=== PATIENT | female | born 1960 | race Caucasian/White ===

== ENCOUNTER 2023-02-21 12:08 | Inpatient (IN) | payer MEDICARE, SELFPAY ==
[2023-02-21] VITALS (20 sets, daily range): BP systolic 117–221; BP diastolic 70–106; PULSE 64–84; RESP 16–18; TEMP 35.9–37; O2SAT 80–96; BMI 26.6
[2023-02-21 12:57] LABS: Add Manual Diff / Slide Review NO; Basophils Absolute Auto 100 /uL (0-100); Basophils Percent Auto 0.5 % (0-2); Eosinophils Absolute Auto 200 /uL (0-450); Eosinophils Percent Auto 1.5 % (2-4); Hematocrit 38.3 % (36-46); Hemoglobin 12.3 g/dL (12.0-16.0); Lymphocytes Absolute Auto 900 /uL (1100-4500); Lymphocytes Percent Auto 7.5 % (25-40); Mean Corpuscular Hemoglobin 26.1 PG (26-34); Mean Corpuscular Volume 81.3 fL (80-100); Monocytes Absolute Auto 1000 /uL (0-900); Monocytes Percent Auto 8.4 % (3-14); Neutrophils Absolute Auto 10200 /uL (1500-7000); Neutrophils Percent Auto 82.1 % (50-75); Platelet Count 303 X10^3/uL (150-400); Red Blood Cell Count 4.71 X10^6/uL (4.0-5.2); Red Cell Distribution Width 16.2 % (11.6-14.8); White Blood Cell Count 12.4 X10^3/uL (4.5-11.0)
--- NOTE | 2023-02-21 13:00 | ED.ABDPAIN ---
HPI - Abdominal Pain General Chief Complaint: Abdominal Pain Stated Complaint: abd pain/states bladder infection/back pain Time Seen by Provider: 02/21/23 12:50 Source: patient Mode of arrival: Ambulatory History of Present Illness HPI narrative: Patient here, brought by a friend for complains of nausea and right flank pain and hematuria. Patient seen by primary care last Monday for routine diabetes workup/checkup however the day before she had blood in her urine. She did get started on antibiotics this past weekend. She states that hematuria has resolved. However pain started on the right lower abdomen right flank area. Has had nausea. No sweating or fever. No worsening pain with movement or palpation. Has tried aspirin for discomfort without resolved. Informed her not to take aspirin for pain control. Related Data Home Medications Medication Instructions Recorded Confirmed apixaban 5 mg tablet (Eliquis) 5 mg PO BID blood clot 02/21/23 02/21/23 buspirone 7.5 mg tablet 7.5 mg PO BID 02/21/23 02/21/23 diltiazem HCl 30 mg tablet 30 mg PO BID 02/21/23 02/21/23 epinephrine 0.3 mg/0.3 mL 0.3 ml IM PRN PRN Allergic Reaction 02/21/23 02/21/23 injection, auto-injector insulin glargine 100 unit/mL (3 20 unit SUBCUT ONCE PM 02/21/23 02/21/23 mL) subcutaneous pen losartan 25 mg tablet 25 mg PO DAILY 02/21/23 02/21/23 metoprolol tartrate 100 mg tablet 100 mg PO DAILY 02/21/23 02/21/23 nitrofurantoin macrocrystal 100 mg 100 mg PO BID infectious disease 02/21/23 02/21/23 capsule omeprazole 20 mg capsule,delayed 20 mg PO QAM 02/21/23 02/21/23 release Allergies Allergy/AdvReac Type Severity Reaction Status Date / Time diphenhydramine Allergy Unknown Verified 02/21/23 12:28 [From TOMI] Review of Systems Review of Systems Narrative: GENERAL: negative chills, fatigue, malaise, fever, sweats. HEENT: negative sinus pain, ear pain, sore throat RESPIRATORY: negative dyspnea, cough CARDIOVASCULAR: negative chest pain, palpitations GASTROINTESTINAL: negative nausea, vomiting, positive flank and abdominal pain : negative dysuria, positive frequency, hematuria MUSCULOSKELETAL: negative muscle or bony pain SKIN: negative rash, skin lesions NEUROLOGIC: negative weakness, numbness ROS Unobtainable: All systems reviewed & are unremarkable except as noted in HPI and below Patient History Social History household members: friend(s) Smoking Status: Current every day smoker alcohol intake: never Smoking Status: Current every day smoker tobacco type: cigarettes Substance Use Type: marijuana Exam Narrative Exam Narrative: GENERAL: in no distress, not toxic not dyspneic HEAD: Normocephalic. EYES: Pupils equal round ENT: Mucous membranes moist. NECK: Trachea midline. CARDIOVASCULAR: Regular rate and rhythm RESPIRATORY: Clear to auscultation. Breath sounds equal bilaterally. No wheezes, rales, or rhonchi. GASTROINTESTINAL: Abdomen soft, mild right lower quadrant tenderness, no CVA tenderness. No pain out of portion of the exam. No peritoneal signs. Bowel sounds are present. EXTREMITIES: No gross deformities. BACK: No flank tenderness. NEURO: AOx4. SKIN: Warm and dry PSYCH: Not anxious, is cooperative Initial Vital Signs Initial Vital Signs: Vital Signs Temperature 98.6 F 02/21/23 12:28 Pulse Rate 76 02/21/23 12:28 Respiratory Rate 18 02/21/23 12:28 Blood Pressure 117/70 02/21/23 12:28 Pulse Oximetry 95 02/21/23 12:28 Oxygen Delivery Method Room Air 02/21/23 12:28 Course Orders Ordered: Acetaminophen (Acetaminophen 325 Mg Tablet) 650 mg PO Q6H PRN PRN Reason: Fever/Mild Pain (1-3) Last Admin: 02/21/23 21:12 Dose: 650 mg Documented By: AM Apixaban (Apixaban 5 Mg Tablet) 5 mg PO BID [facility] Last Admin: 02/21/23 21:12 Dose: 5 mg Documented By: AM Dextrose (D10w) 100 mls @ 1,200 mls/hr IV PRN PRN PRN Reason: Hypoglycemia Ceftriaxone Sodium 2,000 mg/ (Sodium Chloride) 100 mls @ 200 mls/hr IV Q24H [facility] Insulin Glargine (Insulin Glargine 100 Unit/Ml 3ml Pen) 20 unit SUBCUT 2100 [facility] Last Admin: 02/21/23 21:11 Dose: 20 unit Documented By: AM Co-signed By: JOAQUIM Insulin Human Lispro (Insulin Lispro 100 Unit/Ml 3ml Vial) 0 unit SUBCUT ACHS ELIF; Protocol Last Admin: 02/22/23 07:21 Dose: Not Given Documented By: Admin: 02/21/23 21:11 Dose: Not Given Documented By: AM Metoprolol Succinate (Metoprolol Er 50 Mg Tablet) 100 mg PO DAILY [facility] Naloxone HCl (Naloxone 0.4 Mg/Ml Vial) 0.2 mg IV Q2MIN PRN PRN Reason: Opiate Reversal Ondansetron HCl (Ondansetron 4 Mg/2 Ml Inj) 4 mg IV Q8HR PRN PRN Reason: Nausea And Vomiting Last Admin: 02/21/23 18:30 Dose: 4 mg Documented By: Discontinued Medications Sodium Chloride (Normal Saline 0.9%) 1,000 mls @ 1,000 mls/hr IV BOLUS ONE Stop: 02/21/23 13:58 Last Infusion: 02/21/23 15:22 Dose: Infused Documented By: Admin: 02/21/23 13:08 Dose: 1,000 mls/hr Documented By: VIKAS Ceftriaxone Sodium 2,000 mg/ (Sodium Chloride) 100 mls @ 200 mls/hr IV NOW ONE Stop: 02/21/23 16:10 Last Infusion: 02/21/23 18:01 Dose: Infused Documented By: Admin: 02/21/23 17:27 Dose: 200 mls/hr Documented By: MARLEN Sodium Chloride (Normal Saline 0.9%) 1,000 mls @ 1,000 mls/hr IV BOLUS ONE Stop: 02/21/23 17:14 Last Infusion: 02/21/23 17:40 Dose: Infused Documented By: Admin: 02/21/23 16:21 Dose: 1,000 mls/hr Documented By: MARLEN Morphine Sulfate (Morphine 4 Mg/Ml Inj) 4 mg IV NOW ONE Stop: 02/21/23 12:59 Last Admin: 02/21/23 13:08 Dose: 4 mg Documented By: VIKAS Ondansetron HCl (Ondansetron 4 Mg Odt) 4 mg PO NOW PRN PRN Reason: Nausea And Vomiting Ondansetron HCl (Ondansetron 4 Mg/2 Ml Inj) 4 mg IV NOW PRN PRN Reason: Nausea And Vomiting Vital Signs Vital signs: Vital Signs - 8 hr 02/21/23 12:28 02/21/23 13:07 02/21/23 13:08 Temperature 98.6 F Pulse Rate 76 Respiratory Rate 18 Blood Pressure 117/70 178/94 H Pulse Oximetry 95 95 Oxygen Delivery Method Room Air 02/21/23 13:08 02/21/23 13:34 02/21/23 13:35 Temperature Pulse Rate 73 77 Respiratory Rate Blood Pressure 176/87 H Pulse Oximetry 96 94 Oxygen Delivery Method 02/21/23 13:35 02/21/23 14:00 02/21/23 14:00 Temperature Pulse Rate 74 72 Respiratory Rate Blood Pressure 173/88 H Pulse Oximetry 93 Oxygen Delivery Method 02/21/23 14:30 02/21/23 14:30 02/21/23 14:47 Temperature Pulse Rate 76 Respiratory Rate Blood Pressure 183/96 H 194/92 H Pulse Oximetry 92 Oxygen Delivery Method MDM - Abdominal Pain Lab Data 02/22/23 06:10 02/22/23 06:10 Labs: Lab Results 02/21/23 02/21/23 02/21/23 Range/Units 12:48 14:47 17:18 WBC 12.4 H (4.5-11.0) X10^3/uL RBC 4.71 (4.0-5.2) X10^6/uL Hgb 12.3 (12.0-16.0) g/dL Hct 38.3 (36-46) % MCV 81.3 (80-100) fL MCH 26.1 (26-34) PG MCHC 32.0 (30-36) % RDW 16.2 H (11.6-14.8) % Plt Count 303 (150-400) X10^3/uL Neut % (Auto) 82.1 H (50-75) % Lymph % (Auto) 7.5 L (25-40) % [place] % (Auto) 8.4 (3-14) % Eos % (Auto) 1.5 L (2-4) % Baso % (Auto) 0.5 (0-2) % Neut # (Auto) 93326 H (0841-8370) /uL Lymph # (Auto) 900 L (7531-2350) /uL [place] # (Auto) 1000 H (0-900) /uL Eos # (Auto) 200 (0-450) /uL Baso # (Auto) 100 (0-100) /uL Sodium 136 L (137-145) mmol/L Potassium 3.8 (3.4-5.1) mmol/L Chloride 100 (98-107) mmol/L Carbon Dioxide 28 (22-32) mmol/L BUN 37 H (7-17) mg/dL Creatinine 1.34 H (0.52-1.04) mg/dL Estimated GFR 44 L (>60) mL/min BUN/Creatinine Ratio 27.6 H (6-22) Glucose 139 H (80-110) mg/dL Lactate 1.3 (0.7-2.1) mmol/L Calcium 9.0 (8.4-10.2) mg/dL Total Bilirubin 0.6 (0.2-1.3) mg/dL AST 26 (14-36) IU/L ALT 19 (<35) IU/L Alkaline Phosphatase 112 (38-126) U/L Total Protein 7.2 (6.3-8.2) g/dL Albumin 4.0 (3.5-5.0) g/dL Globulin 3.2 (1.7-4.1) g/dL Albumin/Globulin Ratio 1.3 (1.0-2.8) Lipase 79 (23-300) U/L Procalcitonin 0.10 (<0.5) ng/mL Urine Color Red Urine Appearance Cloudy Urine pH 6.5 (4.5-8.0) Ur Specific [place] 1.020 (1.000-1.035) Urine Protein 3+ H (Negative) Urine Glucose (UA) Negative (Negative) g/dL Urine Ketones Trace H (NEGATIVE) Urine Occult Blood 3+ H (Negative) Urine Nitrate Positive H (Negative) Urine Bilirubin 1+ H (NEGATIVE) Ur Bilirubin Confirm Negative (Negative) Urine Urobilinogen 4.0 H (0.2) E.U./dL Ur Leukocyte Esterase 2+ H (NEGATIVE) Urine RBC >100/hpf H (0-5/HPF) Urine WBC 5-10/hpf H (0-5/HPF) Ur Squamous Epith Cells 1-5 /hpf (0-5/HPF) Urine Bacteria Few (2-10) H (None) Ur Culture Indicated? Specimen cultured Imaging Data CT scan - abdomen/pelvis: Radiologist's Impression: [address] [address] [address] Scan Report Signed Patient: Giselle Whittaker MR#: [id number] : 1960 Acct:[id number] Age/Sex: 63 / F Date of Service: 02/21/23 Loc: ED Accession Number: [id number] Procedure: CT abdomen pelvis w con Ordering Provider: Sanchez Platt MD PROCEDURE: CT ABDOMEN PELVIS W CON INDICATIONS: IV contrast only/right side pain TECHNIQUE: After the administration of intravenous contrast, axial sections acquired from the lung bases to the pubic symphysis. Coronal and sagittal reformats were performed. For radiation dose reduction, the following was used: automated exposure control, adjustment of mA and/or kV according to patient size. COMPARISON: [facility], CT, CT ANGIO CHEST PE, 06/07/2015, 12:28. FINDINGS: Image quality: Excellent. Lung bases: Mild bibasilar atelectasis. Heart: Mild cardiomegaly. Small pericardial effusion. ABDOMEN: Liver: There is diffuse hypoattenuation of the liver parenchyma relative to the spleen compatible with hepatic steatosis. Gallbladder: Unremarkable Biliary ducts: Unremarkable. Pancreas: Unremarkable. Spleen: There is a 1.2 cm inferior splenic hypodensity not seen on comparison study. Suggestion of mild peripheral nodularity. Findings may represent a hemangioma. Adrenal Glands: Unremarkable. Kidneys and Ureters: There is mild right hydroureteronephrosis with moderate right perinephric and periureteral stranding. No evidence for obstructing stone or mass along the course of the right ureter. No urinary bladder stones seen. There is mild, greater than expected ureteral wall enhancement. Homogeneous enhancement of the right renal cortex. Left kidney is unremarkable in appearance. No hydronephrosis on the left. Stomach and Bowel: Stomach, small bowel loops, and colon are unremarkable. Colonic diverticulosis without acute diverticulitis. Scattered colonic fecal material. No evidence for bowel obstruction. Peritoneum: No free air. Scattered free fluid in the lower pelvis and right abdomen. This is likely reactive. Ventral Wall: No hernias. Abdominal Nodes: No retroperitoneal or mesenteric adenopathy by size criteria. Vessels: Aorta and inferior vena cava are normal in size. PELVIS: Pelvic Organs: Uterus is not definitively visualized and likely surgically absent. Recommend correlation with past surgical history. Bladder: Unremarkable. Pelvic Nodes: No enlarged lymph nodes. Miscellaneous: No hernias are seen. Bones: No acute vertebral body compression fractures. Multilevel spondylitic changes throughout the imaged spine. No suspicious osseous lesions. IMPRESSION: 1. Mild right hydroureteronephrosis without evidence for distal obstructing stone or mass. There is moderate associated right perinephric and periureteral stranding. Findings may represent sequela of recently passed stone. However, ascending urinary tract infection may have a similar appearance. No evidence for pyelonephritis or renal abscess. Recommend clinical and laboratory correlation. 2. Small amount of scattered right abdominal and pelvic free fluid likely reactive in etiology. 3. Mild colonic diverticulosis without acute diverticulitis. 4. New 1.2 cm inferior splenic hypodensity possibly representing a hemangioma. Recommend outpatient multi phase contrast enhanced CT or MRI for further characterization. 5. Hepatic steatosis. Other chronic findings as above. Dictated by: Jay Jonas M.D. on 02/21/2023 at 14:12 Approved by: Jay Jonas M.D. on 02/21/2023 at 14:39 [facility] Narrative Medical decision making narrative: Patient here, brought by a friend for complains of nausea and right flank pain and hematuria. Patient seen by primary care last Monday for routine diabetes workup/checkup however the day before she had blood in her urine. She did get started on antibiotics this past weekend. She states that hematuria has resolved. However pain started on the right lower abdomen right flank area. Has had nausea. No sweating or fever. No worsening pain with movement or palpation. Has tried aspirin for discomfort without resolved. Informed her not to take aspirin for pain control. After history and exam CBC CMP urinalysis CT abdomen pelvis morphine Zofran normal saline MDM CC: Right side abdominal pain Complicating co-morbidities: Recent treatment for UTI Data collected from: Patient Medical records reviewed: No recent visit for this complaint Differential considered: Includes but not limited to pyelonephritis cystitis appendicitis kidney stone Exam documented above, pertinent findings include: Mild right lower quadrant tenderness Lab Test results independently reviewed as above. Pertinent findings: WBC 12.4 sodium 136 BUN 37 creatinine 1.34 GFR 44 Urinalysis positive nitrate positive leuk esterase Imaging studies independently reviewed: CT abdomen pelvis mild right hydroureteronephrosis, no kidney stone. Consultations: 5:20 p.m. spoke with hospitalist, dr capone, will admit pt Treatments: Normal saline morphine Zofran Rocephin Re-evaluations: 4:00 p.m.. Reviewed results with patient. She says she does not feel very well. She would agree for admission. She is failed outpatient antibiotics. She is not sure which 1 she has been taking. Discussion: Appropriate for admission patient has failed outpatient antibiotics for the past week. Symptoms are getting worse. Reviewed laboratory studies and imaging, clinically likely pyelonephritis/cystitis Diagnosis: Pyelonephritis Discharge Plan Departure Patient Disposition: Admitted as Observation Clinical Impression: Acute pyelonephritis Admit Date/Time: 02/21/23 17:38 Admit Provider: Hair Caopne
[2023-02-21] MEDS: MORPHINE 4 MG/ML INJ IV (13:08)
[2023-02-21] MEDS: SODIUM CHLORIDE 0.9% 1,000 ML 1000 ML IV ×2 (13:08→16:21)
[2023-02-21 13:10] LABS: Alanine Aminotransferase 19 IU/L (<35); Albumin Globulin Ratio 1.3 (1.0-2.8); Alkaline Phosphatase 112 U/L (38-126); Aspartate Aminotransferase 26 IU/L (14-36); BUN Creatinine Ratio 27.6 (6-22); Bilirubin Total 0.6 mg/dL (0.2-1.3); Blood Urea Nitrogen 37 mg/dL (7-17); Carbon Dioxide 28 mmol/L (22-32); Chloride 100 mmol/L (98-107); Estimated Glomerular Filt Rate 44 mL/min (>60); Globulin 3.2 g/dL (1.7-4.1); Glucose 139 mg/dL (80-110); HEMOLYSIS < 15 (0-50); Lipase 79 U/L (23-300); Potassium 3.8 mmol/L (3.4-5.1); Sodium 136 mmol/L (137-145); Total Protein 7.2 g/dL (6.3-8.2)
--- NOTE | 2023-02-21 13:30 | DI.CT.S_ITS ---
PROCEDURE: CT ABDOMEN PELVIS W CON INDICATIONS: IV contrast only/right side pain TECHNIQUE: After the administration of intravenous contrast, axial sections acquired from the lung bases to the pubic symphysis. Coronal and sagittal reformats were performed. For radiation dose reduction, the following was used: automated exposure control, adjustment of mA and/or kV according to patient size. COMPARISON: [facility], CT, CT ANGIO CHEST PE, 06/07/2015, 12:28. FINDINGS: Image quality: Excellent. Lung bases: Mild bibasilar atelectasis. Heart: Mild cardiomegaly. Small pericardial effusion. ABDOMEN: Liver: There is diffuse hypoattenuation of the liver parenchyma relative to the spleen compatible with hepatic steatosis. Gallbladder: Unremarkable Biliary ducts: Unremarkable. Pancreas: Unremarkable. Spleen: There is a 1.2 cm inferior splenic hypodensity not seen on comparison study. Suggestion of mild peripheral nodularity. Findings may represent a hemangioma. Adrenal Glands: Unremarkable. Kidneys and Ureters: There is mild right hydroureteronephrosis with moderate right perinephric and periureteral stranding. No evidence for obstructing stone or mass along the course of the right ureter. No urinary bladder stones seen. There is mild, greater than expected ureteral wall enhancement. Homogeneous enhancement of the right renal cortex. Left kidney is unremarkable in appearance. No hydronephrosis on the left. Stomach and Bowel: Stomach, small bowel loops, and colon are unremarkable. Colonic diverticulosis without acute diverticulitis. Scattered colonic fecal material. No evidence for bowel obstruction. Peritoneum: No free air. Scattered free fluid in the lower pelvis and right abdomen. This is likely reactive. Ventral Wall: No hernias. Abdominal Nodes: No retroperitoneal or mesenteric adenopathy by size criteria. Vessels: Aorta and inferior vena cava are normal in size. PELVIS: Pelvic Organs: Uterus is not definitively visualized and likely surgically absent. Recommend correlation with past surgical history. Bladder: Unremarkable. Pelvic Nodes: No enlarged lymph nodes. Miscellaneous: No hernias are seen. Bones: No acute vertebral body compression fractures. Multilevel spondylitic changes throughout the imaged spine. No suspicious osseous lesions. IMPRESSION: 1. Mild right hydroureteronephrosis without evidence for distal obstructing stone or mass. There is moderate associated right perinephric and periureteral stranding. Findings may represent sequela of recently passed stone. However, ascending urinary tract infection may have a similar appearance. No evidence for pyelonephritis or renal abscess. Recommend clinical and laboratory correlation. 2. Small amount of scattered right abdominal and pelvic free fluid likely reactive in etiology. 3. Mild colonic diverticulosis without acute diverticulitis. 4. New 1.2 cm inferior splenic hypodensity possibly representing a hemangioma. Recommend outpatient multi phase contrast enhanced CT or MRI for further characterization. 5. Hepatic steatosis. Other chronic findings as above. Dictated by: Jay Jonas M.D. on 02/21/2023 at 14:12 Approved by: Jay Jonas M.D. on 02/21/2023 at 14:39
[2023-02-21 14:55] LABS: Appearance Urine UA CLOUDY; Bilirubin Urine UA 1+ (NEGATIVE); Color Urine UA RED; Glucose Urine UA NEGATIVE (Negative); Ketones Urine UA TRACE (NEGATIVE); Leukocyte Esterase Urine UA 2+ (NEGATIVE); Nitrite Urine UA POSITIVE (Negative); Occult Blood Urine UA 3+ (Negative); Protein Urine UA 3+ (Negative)
[2023-02-21 15:06] LABS: Bacteria Urine Few (2-10); RBC Urine >100/HPF (0-5/HPF); Squamous Epithelial Cell Urine 1-5 /HPF (0-5/HPF); WBC Urine 5-10/HPF (0-5/HPF); pH Urine UA 6.5 (4.5-8.0)
[2023-02-21 15:07] LABS: Culture Indicated Urine Specimen Cultured
[2023-02-21 15:09] LABS: Ictotest Urine Negative (Negative)
[2023-02-21] MEDS: cefTRIAXone 2,000 MG in SODIUM CHLORIDE 0.9% 100 ML 200 MG IV (17:27)
[2023-02-21 18:00] LABS: Lactate (Lactic Acid) 1.3 mmol/L (0.7-2.1)
--- NOTE | 2023-02-21 18:05 | PC.NURSE ---
This RN did first set of cultures with initial IV start and second set at second IV start and then hung antibiotics. At the time of this note, neither has been received but AC RN aware that both were done and should be pending.
[2023-02-21] MEDS: ONDANSETRON 4 MG/2 ML INJ IV (18:30)
--- NOTE | 2023-02-21 19:28 | PC.ADMIT ---
Admission Note: Patient to room 209 via stretcher at approx 1825, 1 person assist to bed. Oriented to room and to bed/tv/call light controls. Alert and oriented x3. Zofran administered for pt report of nausea per emar. Denies pain. Voided via BSC, urine pink and foul odored. RA, BP elevated 190s systolic but improved from ER. The patient,Giselle Whittaker,63 y/o, was given written information regarding hospital policies, unit procedures and contact persons. Patient's smoking status: Current every day smoker. Vital Signs - 8 hr 02/21/23 12:28 02/21/23 13:07 02/21/23 13:08 Temperature 98.6 F Pulse Rate 76 Respiratory Rate 18 Blood Pressure 117/70 178/94 H Pulse Oximetry 95 95 Oxygen Delivery Method Room Air Oxygen Flow Rate 02/21/23 13:08 02/21/23 13:34 02/21/23 13:35 Temperature Pulse Rate 73 77 Respiratory Rate Blood Pressure 176/87 H Pulse Oximetry 96 94 Oxygen Delivery Method Oxygen Flow Rate 02/21/23 13:35 02/21/23 14:00 02/21/23 14:00 Temperature Pulse Rate 74 72 Respiratory Rate Blood Pressure 173/88 H Pulse Oximetry 93 Oxygen Delivery Method Oxygen Flow Rate 02/21/23 14:30 02/21/23 14:30 02/21/23 14:47 Temperature Pulse Rate 76 Respiratory Rate Blood Pressure 183/96 H 194/92 H Pulse Oximetry 92 Oxygen Delivery Method Oxygen Flow Rate 02/21/23 15:00 02/21/23 15:00 02/21/23 15:30 Temperature Pulse Rate 73 Respiratory Rate Blood Pressure 185/103 H 200/101 H Pulse Oximetry 93 Oxygen Delivery Method Oxygen Flow Rate 02/21/23 15:30 02/21/23 16:00 02/21/23 16:00 Temperature Pulse Rate 75 79 Respiratory Rate Blood Pressure 189/93 H Pulse Oximetry 92 93 Oxygen Delivery Method Oxygen Flow Rate 02/21/23 16:30 02/21/23 16:30 02/21/23 16:40 Temperature Pulse Rate 75 73 Respiratory Rate Blood Pressure 201/95 H Pulse Oximetry 93 93 Oxygen Delivery Method Oxygen Flow Rate 02/21/23 17:00 02/21/23 17:24 02/21/23 17:30 Temperature Pulse Rate 77 84 Respiratory Rate Blood Pressure 221/101 H Pulse Oximetry 93 Oxygen Delivery Method Oxygen Flow Rate 02/21/23 17:35 02/21/23 17:35 02/21/23 18:25 Temperature 97.1 F L Pulse Rate 64 74 Respiratory Rate 16 Blood Pressure 206/106 H 194/102 H Pulse Oximetry 96 Oxygen Delivery Method Oxygen Flow Rate 0
--- NOTE | 2023-02-21 20:51 | P.HP_ITS ---
History of Present Illness History of Present Illness Date Patient Seen: 02/21/23 Time Patient Seen: 18:00 Chief complaint: abd pain/states bladder infection/back pain Narrative: Ms. Whittaker is a 63W with PMH DM, VTE, HTN who presents to the hospital with nausea, abdominal pain, and blood in the urine. She states she noted having blood in her urine last week. She was diagnosed with a UTI, and has been taking nitrofurantoin for three days. She has felt worse despite this with nausea, and lower abdominal pain and so presented to the ED. In the ED workup was done, vitals notable for afebrile, heart rate 70s, blood pressure 110s/70s, sats 95% room air. Labs reviewed and notable for WBC 12.4, hgb 12.3, plts 303. Na 136, creatinine 1.34. UA notable for blood, positive nitrates, 2+ leuk esterase, 5-10 WBCs, few bacteria. CT abdomen shows mild right hydroureteronephrosis with no evidence of stsone or mass. There is perinephric stranding and periureteral stranding. She was ordered for antibiotics and admitted for further treatment. [facility]LY [facility] Social History household members: friend(s) Smoking Status: Current every day smoker alcohol intake: never Meds Home Medications and Allergies Home Medications Medication Instructions Recorded Confirmed Type apixaban 5 mg tablet (Eliquis) 5 mg PO BID blood clot 02/21/23 02/21/23 History buspirone 7.5 mg tablet 7.5 mg PO BID 02/21/23 02/21/23 History diltiazem HCl 30 mg tablet 30 mg PO BID 02/21/23 02/21/23 History epinephrine 0.3 mg/0.3 mL 0.3 ml IM PRN PRN Allergic Reaction 02/21/23 02/21/23 History injection, auto-injector insulin glargine 100 unit/mL (3 20 unit SUBCUT ONCE PM 02/21/23 02/21/23 History mL) subcutaneous pen losartan 25 mg tablet 25 mg PO DAILY 02/21/23 02/21/23 History metoprolol tartrate 100 mg tablet 100 mg PO DAILY 02/21/23 02/21/23 History nitrofurantoin macrocrystal 100 mg 100 mg PO BID infectious disease 02/21/23 02/21/23 History capsule omeprazole 20 mg capsule,delayed 20 mg PO QAM 02/21/23 02/21/23 History release Allergies Allergy/AdvReac Type Severity Reaction Status Date / Time diphenhydramine Allergy Unknown Verified 02/21/23 12:28 [From BENADRYL] Review of Systems Review of Systems Narrative: 14 systems reviewed and negative aside from what is noted in HPI Exam Vital Signs (past 8 hours): - 02/21/23 13:07 02/21/23 13:08 02/21/23 13:08 Temperature Pulse Rate 73 Respiratory Rate Blood Pressure 178/94 H Pulse Oximetry 95 96 Oxygen Flow Rate 02/21/23 13:34 02/21/23 13:35 02/21/23 13:35 Temperature Pulse Rate 77 74 Respiratory Rate Blood Pressure 176/87 H Pulse Oximetry 94 93 Oxygen Flow Rate 02/21/23 14:00 02/21/23 14:00 02/21/23 14:30 Temperature Pulse Rate 72 Respiratory Rate Blood Pressure 173/88 H 183/96 H Pulse Oximetry Oxygen Flow Rate 02/21/23 14:30 02/21/23 14:47 02/21/23 15:00 Temperature Pulse Rate 76 Respiratory Rate Blood Pressure 194/92 H 185/103 H Pulse Oximetry 92 Oxygen Flow Rate 02/21/23 15:00 02/21/23 15:30 02/21/23 15:30 Temperature Pulse Rate 73 75 Respiratory Rate Blood Pressure 200/101 H Pulse Oximetry 93 92 Oxygen Flow Rate 02/21/23 16:00 02/21/23 16:00 02/21/23 16:30 Temperature Pulse Rate 79 75 Respiratory Rate Blood Pressure 189/93 H Pulse Oximetry 93 93 Oxygen Flow Rate 02/21/23 16:30 02/21/23 16:40 02/21/23 17:00 Temperature Pulse Rate 73 Respiratory Rate Blood Pressure 201/95 H 221/101 H Pulse Oximetry 93 Oxygen Flow Rate 02/21/23 17:24 02/21/23 17:30 02/21/23 17:35 Temperature Pulse Rate 77 84 64 Respiratory Rate Blood Pressure Pulse Oximetry 93 Oxygen Flow Rate 02/21/23 17:35 02/21/23 18:25 02/21/23 20:50 Temperature 97.1 F L Pulse Rate 74 Respiratory Rate 16 Blood Pressure 206/106 H 194/102 H Pulse Oximetry 96 80 L Oxygen Flow Rate 0 0 02/21/23 20:50 Temperature Pulse Rate Respiratory Rate Blood Pressure Pulse Oximetry 93 Oxygen Flow Rate 1.5 Oxygen Delivery Method Room Air Oxygen Flow Rate 1.5 Narrative Exam Narrative: GEN: no acute distress CV: regular rate and rhythm, no murmurs PULM: clear bilaterally, no wheezes, rhonchi, rales ABD: soft, mild tenderness, no rebound/guarding NEURO: no focal deficits noted Objective Labs 02/21/23 12:48 02/21/23 12:48 Labs: Laboratory Results - last 24 hr 02/21/23 02/21/23 02/21/23 12:48 14:47 17:18 WBC 12.4 H RBC 4.71 Hgb 12.3 Hct 38.3 MCV 81.3 MCH 26.1 MCHC 32.0 RDW 16.2 H Plt Count 303 Neut % (Auto) 82.1 H Lymph % (Auto) 7.5 L [place] % (Auto) 8.4 Eos % (Auto) 1.5 L Baso % (Auto) 0.5 Neut # (Auto) 66800 H Lymph # (Auto) 900 L [place] # (Auto) 1000 H Eos # (Auto) 200 Baso # (Auto) 100 Sodium 136 L Potassium 3.8 Chloride 100 Carbon Dioxide 28 BUN 37 H Creatinine 1.34 H Estimated GFR 44 L BUN/Creatinine Ratio 27.6 H Glucose 139 H Lactate 1.3 Calcium 9.0 Total Bilirubin 0.6 AST 26 ALT 19 Alkaline Phosphatase 112 Total Protein 7.2 Albumin 4.0 Globulin 3.2 Albumin/Globulin Ratio 1.3 Lipase 79 Procalcitonin 0.10 Urine Color Red Urine Appearance Cloudy Urine pH 6.5 Ur Specific [place] 1.020 Urine Protein 3+ H Urine Glucose (UA) Negative Urine Ketones Trace H Urine Occult Blood 3+ H Urine Nitrate Positive H Urine Bilirubin 1+ H Ur Bilirubin Confirm Negative Urine Urobilinogen 4.0 H Ur Leukocyte Esterase 2+ H Urine RBC >100/hpf H Urine WBC 5-10/hpf H Ur Squamous Epith Cells 1-5 /hpf Urine Bacteria Few (2-10) H Ur Culture Indicated? Specimen cultured Assessment & Plan Assessment & Plan narrative: 1. Acute pyelonephritis -has been on antibiotics for three days, now admitted for worsening -will need IV antibiotics -UA positive for infection and notable for blood -cultures pending -CT showed right hydronephrosis with no evidence of stone or mass, possibly secondary to infection 2. JOHN -suspect secondary to infection -continue to monitor closely -if not improving may need repeat CT scan or urology consult 3. VTE -continue apixaban I have discussed plan and obtained history from patient. I have discussed plan of care with ED physician and bedside nurse. I have reviewed labs, imaging. CODE: Full Proxy: rosalia Iqbal Quality [facility] - Meds 'Current medications' to include all prescriptions, [id number] products, herbals, cannabis/cannabidiol products, and vitamin/mineral/dietary (nutritional) supplements. I have utilized all available resources to obtain, update, or review the patient?s current medications. [If Yes, STOP here]: Yes
[2023-02-21] MEDS: INSULIN GLARGINE 100 UNIT/ML 3ML PEN 20 UNIT SUBCUT (21:11)
[2023-02-21] MEDS: APIXABAN 5 MG TABLET PO (21:12)
[2023-02-21] MEDS: ACETAMINOPHEN 325 MG TABLET 650 MG PO (21:12)
[2023-02-22] VITALS (7 sets, daily range): BP systolic 150–190; BP diastolic 67–105; PULSE 78–97; RESP 18–20; TEMP 36.1–36.9; O2SAT 91–98
[2023-02-22 06:58] LABS: Add Manual Diff / Slide Review NO; Basophils Absolute Auto 100 /uL (0-100); Eosinophils Absolute Auto 400 /uL (0-450); Eosinophils Percent Auto 6.8 % (2-4); Hematocrit 33.2 % (36-46); Hemoglobin 10.8 g/dL (12.0-16.0); Lymphocytes Absolute Auto 900 /uL (1100-4500); Lymphocytes Percent Auto 13.8 % (25-40); Mean Corpuscular HGB Conc 32.6 % (30-36); Mean Corpuscular Hemoglobin 26.5 PG (26-34); Mean Corpuscular Volume 81.4 fL (80-100); Monocytes Absolute Auto 700 /uL (0-900); Monocytes Percent Auto 10.7 % (3-14); Neutrophils Absolute Auto 4200 /uL (1500-7000); Neutrophils Percent Auto 67.7 % (50-75); Platelet Count 225 X10^3/uL (150-400); Red Blood Cell Count 4.08 X10^6/uL (4.0-5.2); Red Cell Distribution Width 15.8 % (11.6-14.8); White Blood Cell Count 6.3 X10^3/uL (4.5-11.0)
[2023-02-22 07:14] LABS: BUN Creatinine Ratio 28.6 (6-22); Blood Urea Nitrogen 28 mg/dL (7-17); Calcium 8.2 mg/dL (8.4-10.2); Carbon Dioxide 27 mmol/L (22-32); Chloride 102 mmol/L (98-107); Estimated Glomerular Filt Rate > 60 mL/min (>60); Glucose 89 mg/dL (80-110); HEMOLYSIS < 15 (0-50); Potassium 3.7 mmol/L (3.4-5.1); Sodium 135 mmol/L (137-145)
[2023-02-22] MEDS: APIXABAN 5 MG TABLET PO (08:22)
[2023-02-22] MEDS: METOPROLOL ER 50 MG TABLET 100 MG PO (08:22)
[2023-02-22] MEDS: ACETAMINOPHEN 325 MG TABLET 650 MG PO ×2 (08:22→21:04)
--- NOTE | 2023-02-22 11:47 | CM.DANOTE ---
DCP Assessment Note: Patient is a 63yo F here for acute pyelonephritis. PCP Shara Asencio in [place] Payer Medicare and self pay [employer]CH[employer] reviewed EMR. Per provider, likely here for a few days with IV antibiotics and then home. Blood cultures pending for potential iv antibiotic d/c needs. Per RN, patient is weak but getting up to use bedside commode independently. 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 Patient resting in bed. Patient reports living at home with two friends Anastasia and Ines. Patient reports she is active and independent/drives at baseline. Patient uses no DME. Patient reports feeling weak but better. Patient denies need for resources at this time. Plan: likely home with friends when medically stable, transport with friends in POV. CM team will continue to monitor need for potential home IV antibiotic needs. No additional needs identified at this time. CM team will continue to follow closely. JUAN Alcaraz Discharge Planning/Care Management CM Discharge Assessment Start: 02/22/23 11:46 Freq: Status: Active Protocol: Document 02/22/23 11:46 (Rec: 02/22/23 11:47 [id number]) Discharge Planning Assessment Assigned Tire Repairer JUAN Yepez DPOA/Assigned Designee Name Lakhwinder (son) Contact Information [phone] Advance Directives? No History Provided By Patient,Medical Record Prior Living Arrangements House Household Members friend(s) Type of transporation used prior to Drives own vehicle admit Independent with ADL's Yes Is patient alert and oriented? Yes Comment patient will be here a few days for his IV antibiotics. Discharge Plan Home Transportation Arrangement transport with friends in POV Whiteboard Updated in Patient Room with Yes name and ext. # of Tire Repairer Review Status In Process Next Review Type Continued Stay Review
[2023-02-22] MEDS: LOSARTAN 25 MG TABLET PO (15:35)
[2023-02-22] MEDS: NICOTINE 7 MG PATCH TOP (15:35)
--- NOTE | 2023-02-22 17:08 | PM.PN.1 ---
Subjective Subjective Date Patient Seen: 02/22/23 Time Patient Seen: 08:00 Interval history: She says her abdominal pain and nausea feel a little improved. She really looks quite weak and uncomfortable. Exam Vital Signs (past 8 hours): - 02/22/23 12:43 Temperature 98.5 F Pulse Rate 97 H Respiratory Rate 18 Blood Pressure 170/88 H Pulse Oximetry 95 Oxygen Flow Rate 0 Oxygen Delivery Method Room Air Oxygen Flow Rate 0 Narrative Exam Narrative: GEN: no acute distress CV: regular rate and rhythm, no murmurs PULM: clear bilaterally, no wheezes, rhonchi, rales ABD: soft, mild tenderness, no rebound/guarding NEURO: no focal deficits noted Objective Labs 02/22/23 06:10 02/22/23 06:10 Labs: Laboratory Results - last 24 hr 02/21/23 02/21/23 02/22/23 12:48 17:18 06:10 WBC 6.3 RBC 4.08 Hgb 10.8 L Hct 33.2 L MCV 81.4 MCH 26.5 MCHC 32.6 RDW 15.8 H Plt Count 225 Neut % (Auto) 67.7 Lymph % (Auto) 13.8 L [place] % (Auto) 10.7 Eos % (Auto) 6.8 H Baso % (Auto) 1.0 Neut # (Auto) 4200 Lymph # (Auto) 900 L [place] # (Auto) 700 Eos # (Auto) 400 Baso # (Auto) 100 Sodium 135 L Potassium 3.7 Chloride 102 Carbon Dioxide 27 BUN 28 H Creatinine 0.98 Estimated GFR > 60 BUN/Creatinine Ratio 28.6 H Glucose 89 Lactate 1.3 Calcium 8.2 L Procalcitonin 0.10 PFSH Social History household members: friend(s) Smoking Status: Current every day smoker alcohol intake: never Assessment & Plan Assessment & Plan narrative: 1. Acute pyelonephritis -has been on antibiotics for three days as outpatient, now admitted for worsening symptoms -will need IV antibiotics, for now with ceftriaxone -UA positive for infection and notable for blood -cultures pending -CT showed right hydronephrosis with no evidence of stone or mass, possibly secondary to infection, as JOHN improved for now I do not think she need urology consult 2. JOHN -suspect secondary to infection -continue to monitor closely -JOHN improved with fluids -if not improving may need repeat CT scan or urology consult 3. Hematuria -suspect secondary to infection -not improved with antibiotics -stopped apixaban on 02/22 to see if that resolves hematuria -if not may need cbi or urology consult 3. Atrial fibrillation -continue dilt, metoprolol -hold apixaban 4. Type 2 Diabetes -continue insulin -ordered sliding scale 5. Hypertension -hold losartain due to john I have discussed plan and obtained history from patient. I have discussed plan of care with ED physician and bedside nurse. I have reviewed labs, imaging. CODE: Full Proxy: Lakhwinder Cantunesha, son
[2023-02-22] MEDS: cefTRIAXone 2,000 MG in SODIUM CHLORIDE 0.9% 100 ML 200 MG IV (18:07)
[2023-02-22] MEDS: INSULIN GLARGINE 100 UNIT/ML 3ML PEN 20 UNIT SUBCUT (20:58)
[2023-02-22] MEDS: dilTIAZem 30 MG TABLET PO (21:00)
[2023-02-22] MEDS: BUSPIRONE 5 MG TABLET 7.5 MG PO (21:00)
[2023-02-22] MEDS: SODIUM CHLORIDE 0.9% FLUSH 10 ML IV (21:09)
[2023-02-23] VITALS (9 sets, daily range): BP systolic 144–171; BP diastolic 78–93; PULSE 65–90; RESP 16–19; TEMP 35.9–36.6; O2SAT 93–95
[2023-02-23] MEDS: PANTOPRAZOLE DR 20 MG TABLET PO (06:23)
[2023-02-23] MEDS: BUSPIRONE 5 MG TABLET 7.5 MG PO ×2 (08:19→20:09)
[2023-02-23] MEDS: dilTIAZem 30 MG TABLET PO ×2 (08:19→20:08)
[2023-02-23] MEDS: LOSARTAN 25 MG TABLET PO (08:20)
[2023-02-23] MEDS: NICOTINE 7 MG PATCH TOP (08:21)
[2023-02-23] MEDS: ACETAMINOPHEN 325 MG TABLET 650 MG PO (08:21)
[2023-02-23] MEDS: METOPROLOL ER 50 MG TABLET 100 MG PO (08:21)
[2023-02-23] MEDS: ONDANSETRON 4 MG/2 ML INJ IV ×2 (11:26→16:57)
[2023-02-23] MEDS: OXYCODONE/ACETAMINOPHEN 5/325 TABLET 2 TAB PO ×2 (11:52→17:25)
[2023-02-23] MEDS: INSULIN LISPRO 100 UNIT/ML 3ML VIAL SUBCUT ×2 (11:58→20:13)
[2023-02-23] MEDS: cefTRIAXone 2,000 MG in SODIUM CHLORIDE 0.9% 100 ML 200 MG IV (16:26)
--- NOTE | 2023-02-23 18:21 | PM.PN.1 ---
Subjective Subjective Interval history: A lot of right sided flank pain and nausea. Some fevers. No diarrhea or dyspnea. Exam Vital Signs (past 8 hours): - 02/23/23 14:34 Temperature 97.8 F Pulse Rate 65 Respiratory Rate 17 Blood Pressure 144/78 H Pulse Oximetry 95 Oxygen Flow Rate 2 Oxygen Delivery Method Nasal Cannula Oxygen Flow Rate 2 Narrative Exam Narrative: NAD, uncomfortable. Lungs clear with normal effort CV RRR without M/G/R Abdomen Soft, NT/ND No rash No leg edema Objective Imaging CT scan - abdomen: Radiologist's impression: 1. Mild right hydroureteronephrosis without evidence for distal obstructing stone or mass. There is moderate associated right perinephric and periureteral stranding. Findings may represent sequela of recently passed stone. However, ascending urinary tract infection may have a similar appearance. No evidence for pyelonephritis or renal abscess. Recommend clinical and laboratory correlation. 2. Small amount of scattered right abdominal and pelvic free fluid likely reactive in etiology. 3. Mild colonic diverticulosis without acute diverticulitis. 4. New 1.2 cm inferior splenic hypodensity possibly representing a hemangioma. Recommend outpatient multi phase contrast enhanced CT or MRI for further characterization. 5. Hepatic steatosis. Labs 02/22/23 06:10 02/22/23 06:10 [facility] Social History household members: friend(s) Smoking Status: Current every day smoker alcohol intake: never Assessment & Plan Assessment & Plan narrative: [address] [address] Progress Note Patient: Giselle Whittaker MR#: [id number] : 1960 Acct:[id number] Age/Sex: 63 / F Date of Service: 02/21/23 Provider: Hair Donnelly MD Subjective Subjective Date Patient Seen: 02/22/23 Time Patient Seen: 08:00 Interval history: She says her abdominal pain and nausea feel a little improved. She really looks quite weak and uncomfortable. Exam Vital Signs (past 8 hours): - 02/23/2312:43 Temperature 98.5 F Pulse Rate 97 H Respiratory Rate 18 Blood Pressure 170/88 H Pulse Oximetry 95 Oxygen Flow Rate 0 Oxygen Delivery Method Room Air Oxygen Flow Rate 0 Narrative Exam Narrative: GEN: no acute distress CV: regular rate and rhythm, no murmurs PULM: clear bilaterally, no wheezes, rhonchi, rales ABD: soft, mild tenderness, no rebound/guarding NEURO: no focal deficits noted Objective Labs 02/22/23 06:10 02/22/23 06:10 Labs: Laboratory Results - last 24 hr 02/21/23 02/21/23 02/22/23 12:48 17:18 06:10 WBC 6.3 RBC 4.08 Hgb 10.8 L Hct 33.2 L MCV 81.4 MCH 26.5 MCHC 32.6 RDW 15.8 H Plt Count 225 Neut % (Auto) 67.7 Lymph % (Auto) 13.8 L [place] % (Auto) 10.7 Eos % (Auto) 6.8 H Baso % (Auto) 1.0 Neut # (Auto) 4200 Lymph # (Auto) 900 L [place] # (Auto) 700 Eos # (Auto) 400 Baso # (Auto) 100 Sodium 135 L Potassium 3.7 Chloride 102 Carbon Dioxide 27 BUN 28 H Creatinine 0.98 Estimated GFR > 60 BUN/Creatinine Ratio 28.6 H Glucose 89 Lactate 1.3 Calcium 8.2 L Procalcitonin 0.10 PFSH Social History household members: friend(s) Smoking Status: Current every day smoker alcohol intake: never Assessment & Plan Assessment & Plan narrative: 1. Acute pyelonephritis, POA and active. -has been on antibiotics for three days as outpatient, now admitted for worsening symptoms -Continue ceftriaxone -UA positive for infection and notable for blood -cultures pending, remain negative -CT showed right hydronephrosis with no evidence of stone or mass, possibly secondary to infection, as JOHN improved for now I do not think she need urology consult 2. JOHN, POA -suspect secondary to infection -continue to monitor closely -JOHN improved with fluids -if not improving may need repeat CT scan or urology consult 3. Hematuria, POA and improving. -secondary to infection -not improved with antibiotics -stopped apixaban on 02/22 to see if that resolves hematuria -if not may need cbi or urology consult 3. Atrial fibrillation, POA and stable -continue dilt, metoprolol -hold apixaban due to hematuria 4. Type 2 Diabetes, POA and stable. -continue insulin -ordered sliding scale 5. Hypertension, POA and stable.. -hold losartain due to john Time Spent With Patient Time with patient: 30 to 49 minutes with 50% spent counseling/coordinating care
[2023-02-23] MEDS: METOCLOPRAMIDE 10 MG/2 ML INJ 5 MG IV (18:27)
[2023-02-23] MEDS: INSULIN GLARGINE 100 UNIT/ML 3ML PEN 20 UNIT SUBCUT (21:03)
[2023-02-23 22:32] LABS: BUN Creatinine Ratio 23.6 (6-22); Blood Urea Nitrogen 30 mg/dL (7-17); Calcium 8.3 mg/dL (8.4-10.2); Carbon Dioxide 30 mmol/L (22-32); Chloride 99 mmol/L (98-107); Estimated Glomerular Filt Rate 47 mL/min (>60); Glucose 166 mg/dL (80-110); HEMOLYSIS 16 (0-50); Potassium 4.3 mmol/L (3.4-5.1); Sodium 136 mmol/L (137-145)
[2023-02-24] VITALS (8 sets, daily range): BP systolic 147–180; BP diastolic 69–96; PULSE 68–90; RESP 16–18; TEMP 36–36.4; O2SAT 91–99
[2023-02-24] MEDS: ONDANSETRON 4 MG/2 ML INJ IV ×4 (00:53→18:12)
[2023-02-24 05:44] LABS: Add Manual Diff / Slide Review NO; Basophils Absolute Auto 100 /uL (0-100); Eosinophils Absolute Auto 400 /uL (0-450); Eosinophils Percent Auto 5.2 % (2-4); Hematocrit 34.1 % (36-46); Hemoglobin 11.1 g/dL (12.0-16.0); Lymphocytes Absolute Auto 1100 /uL (1100-4500); Lymphocytes Percent Auto 14.6 % (25-40); Mean Corpuscular HGB Conc 32.5 % (30-36); Mean Corpuscular Hemoglobin 26.5 PG (26-34); Mean Corpuscular Volume 81.6 fL (80-100); Monocytes Absolute Auto 600 /uL (0-900); Monocytes Percent Auto 8.7 % (3-14); Neutrophils Absolute Auto 5200 /uL (1500-7000); Neutrophils Percent Auto 70.5 % (50-75); Platelet Count 246 X10^3/uL (150-400); Red Blood Cell Count 4.18 X10^6/uL (4.0-5.2); Red Cell Distribution Width 15.7 % (11.6-14.8); White Blood Cell Count 7.4 X10^3/uL (4.5-11.0)
[2023-02-24] MEDS: PANTOPRAZOLE DR 20 MG TABLET PO (06:20)
[2023-02-24] MEDS: INSULIN LISPRO 100 UNIT/ML 3ML VIAL SUBCUT ×2 (08:15→11:49)
[2023-02-24] MEDS: NICOTINE 7 MG PATCH TOP (08:36)
[2023-02-24] MEDS: BUSPIRONE 5 MG TABLET 7.5 MG PO ×2 (08:36→20:38)
[2023-02-24] MEDS: METOPROLOL ER 50 MG TABLET 100 MG PO (08:36)
[2023-02-24] MEDS: dilTIAZem 30 MG TABLET PO ×2 (08:38→20:38)
[2023-02-24] MEDS: SODIUM CHLORIDE 0.9% 500 ML 1000 ML IV (08:39)
[2023-02-24] MEDS: LOSARTAN 25 MG TABLET PO (08:39)
--- NOTE | 2023-02-24 10:30 | CM.DPC ---
DCP Cont. Reviewed EMR and team rounds. Per Hospitalist, no need for home IV ABO's, d/c tomorrow 02/25. Plan: Home w/friends transporting. No further needs indicated at this time for CM.
--- NOTE | 2023-02-24 12:42 | PM.PN.1 ---
Subjective Subjective Interval history: She would a difficult day yesterday with weakness, nausea and flank pain. Today she feels much better but is still weak and having some nausea. She was able to eat about 25% of her breakfast. She ate about 50% of her lunch. She denies abdominal pain. Exam Vital Signs (past 8 hours): - 02/24/23 07:46 02/24/23 07:54 02/24/23 08:36 Temperature 97.5 F L Pulse Rate 68 68 Respiratory Rate 16 Blood Pressure 155/75 H 155/75 H Pulse Oximetry 94 Oxygen Delivery Method Nasal Cannula Oxygen Flow Rate 2 02/24/23 08:38 02/24/23 08:39 02/24/23 12:00 Temperature 97.0 F L Pulse Rate 68 68 72 Respiratory Rate 16 Blood Pressure 155/75 H 155/75 H 180/87 H Pulse Oximetry 99 Oxygen Delivery Method Oxygen Flow Rate 2 Oxygen Delivery Method Nasal Cannula Oxygen Flow Rate 2 Narrative Exam Narrative: NAD, somewhat lethargic. No distress. Lungs clear, normal effort. Heart irregular, no murmur. Abdomen soft, nontender. Extremities are free of edema. Objective Labs 02/24/23 05:08 02/23/23 22:12 Labs: Laboratory Results - last 24 hr 02/23/23 02/24/23 22:12 05:08 WBC 7.4 RBC 4.18 Hgb 11.1 L Hct 34.1 L MCV 81.6 MCH 26.5 MCHC 32.5 RDW 15.7 H Plt Count 246 Neut % (Auto) 70.5 Lymph % (Auto) 14.6 L [place] % (Auto) 8.7 Eos % (Auto) 5.2 H Baso % (Auto) 1.0 Neut # (Auto) 5200 Lymph # (Auto) 1100 [place] # (Auto) 600 Eos # (Auto) 400 Baso # (Auto) 100 Sodium 136 L Potassium 4.3 Chloride 99 Carbon Dioxide 30 BUN 30 H Creatinine 1.27 H Estimated GFR 47 L BUN/Creatinine Ratio 23.6 H Glucose 166 H Calcium 8.3 L PFSH Social History household members: friend(s) Smoking Status: Current every day smoker alcohol intake: never Assessment & Plan Assessment & Plan narrative: 1. Acute pyelonephritis, POA and improving. -has been on antibiotics for three days as outpatient, now admitted for worsening symptoms -Continue ceftriaxone until she is clinically improved to the point of taking antibiotics orally, likely on February 25. -UA positive for infection and notable for blood. Final is 3 Gram-positive marilin. -blood cultures are negative -CT showed right hydronephrosis with no evidence of stone or mass, possibly secondary to infection, as JOHN improved for now I do not think she need urology consult 2. JOHN, POA -suspect secondary to infection -continue to monitor closely -JOHN improved with fluids -today's chemistries are pending. 3. Hematuria, POA and resolved. -secondary to infection -stopped apixaban on 02/22 to see if that resolves hematuria 3. Atrial fibrillation, POA and stable -continue dilt, metoprolol -hold apixaban due to hematuria, we will restart apixaban today and monitor. 4. Type 2 Diabetes, POA and stable. -continue insulin -ordered sliding scale -continue current regimen. 5. Hypertension, POA and stable.. -hold losartain due to john Anticipate possible discharge to home on February 25. Time Spent With Patient Time with patient: 30 to 49 minutes with 50% spent counseling/coordinating care
[2023-02-24] MEDS: SODIUM CHLORIDE 0.9% 1,000 ML 100 ML IV (13:13)
[2023-02-24 15:24] LABS: Blood Urea Nitrogen 27 mg/dL (7-17); Calcium 8.3 mg/dL (8.4-10.2); Carbon Dioxide 29 mmol/L (22-32); Chloride 100 mmol/L (98-107); Estimated Glomerular Filt Rate > 60 mL/min (>60); Glucose 153 mg/dL (80-110); HEMOLYSIS 32 (0-50); Potassium 4.3 mmol/L (3.4-5.1); Sodium 133 mmol/L (137-145)
[2023-02-24] MEDS: cefTRIAXone 2,000 MG in SODIUM CHLORIDE 0.9% 100 ML 200 MG IV (18:11)
[2023-02-24] MEDS: APIXABAN 5 MG TABLET PO (20:38)
[2023-02-24] MEDS: INSULIN GLARGINE 100 UNIT/ML 3ML PEN 20 UNIT SUBCUT (20:39)
[2023-02-25] VITALS (14 sets, daily range): BP systolic 129–191; BP diastolic 60–94; PULSE 73–93; RESP 16–25; TEMP 35.7–37; O2SAT 90–98
--- NOTE | 2023-02-25 00:13 | PC.NURSE ---
Pt o2 dropped to 83% when up to bedside commode. Recovered back to 91% on 4L NC. Expiratory wheezing to R side, Pt feels congested coughing up yellow thick sputum. Notified doctor and ordered breathing treatments as needed. Will continue to monitor.
[2023-02-25] MEDS: ALBUTEROL 2.5 MG/3 ML NEB (ADULT) INH (00:15)
[2023-02-25] MEDS: PANTOPRAZOLE DR 20 MG TABLET PO (06:32)
[2023-02-25] MEDS: HYDRALAZINE 20 MG/ML VIAL IV (06:32)
--- NOTE | 2023-02-25 07:57 | PM.DS.1 ---
History of Present Illness History of Present Illness Chief complaint: abd pain/states bladder infection/back pain Discharge Providers Provider Date of admission: 02/21/23 17:38 Discharge provider: Ofe Madera MD Exam Vital Signs (past 8 hours): - 02/25/23 00:08 02/25/23 00:21 02/25/23 05:15 Temperature 98.6 F 98.3 F Pulse Rate 73 77 89 Respiratory Rate 20 18 16 Blood Pressure 168/90 H 191/92 H Pulse Oximetry 90 L 93 94 Oxygen Delivery Method Nasal Cannula Oxygen Flow Rate 4 4 4 02/25/23 06:40 02/25/23 06:57 Temperature 96.2 F L Pulse Rate 84 Respiratory Rate 20 Blood Pressure 178/89 H 134/60 Pulse Oximetry 94 Oxygen Delivery Method Oxygen Flow Rate 4 Oxygen Delivery Method Nasal Cannula Oxygen Flow Rate 4 Objective Labs 02/24/23 05:08 02/24/23 14:25 Labs: Laboratory Results - last 24 hr 02/24/23 14:25 Sodium 133 L Potassium 4.3 Chloride 100 Carbon Dioxide 29 BUN 27 H Creatinine 0.87 Estimated GFR > 60 BUN/Creatinine Ratio 31.0 H Glucose 153 H Calcium 8.3 L PFSH Social History household members: friend(s) Smoking Status: Current every day smoker alcohol intake: never Discharge Plan Discharge orders & Medications Prescriptions: No Action metoprolol tartrate 100 mg tablet 100 mg PO DAILY nitrofurantoin macrocrystal 100 mg capsule 100 mg PO BID losartan 25 mg tablet 25 mg PO DAILY buspirone 7.5 mg tablet 7.5 mg PO BID omeprazole 20 mg capsule,delayed release(DR/EC) 20 mg PO QAM epinephrine 0.3 mg/0.3 mL auto-injector 0.3 ml IM PRN PRN (Reason: Allergic Reaction) diltiazem HCl 30 mg tablet 30 mg PO BID insulin glargine 100 unit/mL (3 mL) insulin pen 20 unit SUBCUT ONCE PM Eliquis 5 mg tablet 5 mg PO BID
[2023-02-25] MEDS: APIXABAN 5 MG TABLET PO ×2 (08:54→20:18)
[2023-02-25] MEDS: METOPROLOL ER 50 MG TABLET 100 MG PO (08:54)
[2023-02-25] MEDS: LOSARTAN 25 MG TABLET PO (08:55)
[2023-02-25] MEDS: BUSPIRONE 5 MG TABLET 7.5 MG PO ×2 (08:55→20:18)
[2023-02-25] MEDS: dilTIAZem 30 MG TABLET PO ×2 (08:55→20:24)
--- NOTE | 2023-02-25 10:31 | CM.DPC ---
DCP Cont. Reviewed EMR and team rounds for status updates. Met with pt at bedside, explained that she is not medically stable for d/c yet, and the Hospitalist anticipates about 2-more days of ABO's. Pt presents as very weak, tearful, expressing wanting to go home. Offered emotional support, reassured her that we will keep monitoring for any needs she will have as we approach d/c home. Her friends will transport when ready.
[2023-02-25] MEDS: ONDANSETRON 4 MG/2 ML INJ IV (11:42)
[2023-02-25] MEDS: INSULIN LISPRO 100 UNIT/ML 3ML VIAL SUBCUT ×2 (11:59→20:21)
--- NOTE | 2023-02-25 15:01 | PC.NURSE ---
Pt has been resting majority of the day. Denies discomfort. SpO2 94-94% on 4L O2 Right side presents w/ mild wheeze. CBG 153 & 157 ac, S/S as per orders. HL in the PIPPA & LFA intact & patent. Call light w/in reach, bed alarm on for pt safety. Continue w/plan of care.
--- NOTE | 2023-02-25 16:43 | P.PN_ITS ---
Subjective Subjective Interval history: She is still needing 4 L of nasal cannula oxygen at night but doing well on room air in the 90s during the day. The hemoglobin was 11.1 with a glucose of 153. She has been on ceftriaxone for 5 days. Exam Vital Signs (past 8 hours): - 02/25/23 08:54 02/25/23 08:55 02/25/23 08:55 Temperature Pulse Rate Respiratory Rate Blood Pressure 134/60 134/60 138/66 Pulse Oximetry Oxygen Delivery Method Oxygen Flow Rate 02/25/23 08:58 02/25/23 11:02 02/25/23 11:51 Temperature 97.5 F L Pulse Rate 93 H Respiratory Rate 21 Blood Pressure 138/66 129/67 Pulse Oximetry 93 91 Oxygen Delivery Method Nasal Cannula Oxygen Flow Rate 3.5 4 Oxygen Delivery Method Nasal Cannula Oxygen Flow Rate 4 Narrative Exam Narrative: She is alert and oriented x3. She appears somewhat weak. Heart is regular rate and rhythm without murmur Lungs are clear to auscultation bilaterally Extremities have no ankle edema Objective Labs 02/24/23 05:08 02/24/23 14:25 [facility] Social History household members: friend(s) Smoking Status: Current every day smoker alcohol intake: never Assessment & Plan Assessment & Plan narrative: 1. Acute pyelonephritis, POA and improving. -has been on antibiotics for three days as outpatient, admitted for worsening symptoms -Change from Ceftriaxone to oral Augmentin on 02/24/23 -UA positive for infection and notable for blood. Final is 3 Gram-positive marilin. -blood cultures are negative -CT showed right hydronephrosis with no evidence of stone or mass, possibly secondary to infection, as JOHN improved for now I do not think she needs a urology consult 2. JOHN, POA -suspect secondary to infection -continue to monitor closely -JOHN improved with fluids -today's chemistries are pending. 3. Hematuria, POA and resolved. -secondary to infection -stopped apixaban on 02/22 due to hematuria 3. Atrial fibrillation, POA and stable -continue dilt, metoprolol -held apixaban due to hematuria, then resumed on 02/24 4. Type 2 Diabetes, POA and stable. -continue insulin -ordered sliding scale -continue current regimen. 5. Hypertension, POA and stable.. -hold losartan due to john Anticipate possible discharge to home on February 25.
[2023-02-25] MEDS: ACETAMINOPHEN 325 MG TABLET 650 MG PO (20:19)
[2023-02-25] MEDS: AMOXICILLIN/CLAV 875/125 MG 1 TAB PO (20:19)
[2023-02-25] MEDS: INSULIN GLARGINE 100 UNIT/ML 3ML PEN 20 UNIT SUBCUT (20:20)
[2023-02-25] MEDS: OXYCODONE/ACETAMINOPHEN 5/325 TABLET 2 TAB PO (22:49)
[2023-02-26] VITALS (14 sets, daily range): BP systolic 113–214; BP diastolic 67–106; PULSE 74–100; RESP 14–30; TEMP 36.1–36.2; O2SAT 90–99
[2023-02-26] MEDS: HYDRALAZINE 20 MG/ML VIAL IV ×2 (00:08→16:40)
--- NOTE | 2023-02-26 00:44 | PC.NURSE ---
Patient presented with elevated BP 214/106, symptomatic with headache and shortness of breath. Hydralazine administered per order. BP after hydralazine 148/77, R 20, 94% on 4L via nasal cannula, HR 79. Afebrile. Patient sleeping at this time. Notified Dr. Olivarez, night hospitalist regarding episode of elevated BP and intervention, he stated ok.
[2023-02-26] MEDS: PANTOPRAZOLE DR 20 MG TABLET PO (05:13)
--- NOTE | 2023-02-26 08:18 | DI.RAD.S_ITS ---
PROCEDURE: XR CHEST 1V INDICATIONS: hypoxia TECHNIQUE: One view of the chest was acquired. COMPARISON: None. FINDINGS: Surgical changes and devices: None. Lungs and pleura: There is small left pleural effusion and left basilar atelectasis/small infiltrate. No pneumothorax. Right lung is clear. Mediastinum: Mediastinal contours appear normal. Heart size is enlarged. Bones and chest wall: No suspicious bony lesions. Overlying soft tissues appear unremarkable. IMPRESSION: Small left pleural effusion and left basilar small infiltrate/atelectasis. No pneumothorax. Cardiomegaly. Dictated by: Jori Rivera M.D. on 02/26/2023 at 8:46 Approved by: Jori Rivera M.D. on 02/26/2023 at 8:46
[2023-02-26] MEDS: dilTIAZem 30 MG TABLET PO (09:01)
[2023-02-26] MEDS: AMOXICILLIN/CLAV 875/125 MG 1 TAB PO (09:01)
[2023-02-26] MEDS: APIXABAN 5 MG TABLET PO (09:01)
[2023-02-26] MEDS: METOPROLOL ER 50 MG TABLET 100 MG PO (09:03)
[2023-02-26] MEDS: LOSARTAN 25 MG TABLET 50 MG PO (09:04)
[2023-02-26] MEDS: BUSPIRONE 5 MG TABLET 7.5 MG PO (09:04)
[2023-02-26] MEDS: NICOTINE 7 MG PATCH TOP (09:07)
[2023-02-26] MEDS: ACETAMINOPHEN 325 MG TABLET 650 MG PO (09:08)
[2023-02-26] MEDS: ALBUTEROL 2.5 MG/3 ML NEB (ADULT) INH (09:40)
[2023-02-26] MEDS: FUROSEMIDE 20 MG/2 ML VIAL IV (10:34)
[2023-02-26] MEDS: INSULIN LISPRO 100 UNIT/ML 3ML VIAL SUBCUT ×2 (12:33→17:24)
[2023-02-26] MEDS: BUTALB/APAP/CAFFEINE 50/325/40 TABLET 1 EACH PO (15:58)
[2023-02-26] MEDS: CYCLOBENZAPRINE 10 MG TABLET 5 MG PO (15:58)
--- NOTE | 2023-02-26 16:43 | CM.DPC ---
DCP Continued: CATHODE [employer] reviewed EMR. Per provider, attempting to reduce O2 patient is currently on, may d/c home either today or tomorrow. Per provider, needs home O2 at night. RT to follow with supporting in securing home O2. Unable to meet with patient today due to triaging needs. Plan: home with friend/roommate support when medically stable. Potentially today or tomorrow. Transport with friends. CM team will continue to follow as needed. No additional needs identified at this time . JUAN Alcaraz
--- NOTE | 2023-02-26 18:26 | P.DS_ITS ---
History of Present Illness History of Present Illness Date Patient Seen: 02/21/23 Time Patient Seen: 18:00 Chief complaint: abd pain/states bladder infection/back pain Narrative: Ms. Whittaker is a 63W with PMH DM, VTE, HTN who presents to the hospital with nausea, abdominal pain, and blood in the urine. She states she noted having blood in her urine last week. She was diagnosed with a UTI, and has been taking nitrofurantoin for three days. She has felt worse despite this with nausea, and lower abdominal pain and so presented to the ED. In the ED workup was done, vitals notable for afebrile, heart rate 70s, blood pressure 110s/70s, sats 95% room air. Labs reviewed and notable for WBC 12.4, hgb 12.3, plts 303. Na 136, creatinine 1.34. UA notable for blood, positive nitrates, 2+ leuk esterase, 5-10 WBCs, few bacteria. CT abdomen shows mild right hydroureteronephrosis with no evidence of stsone or mass. There is perinephric stranding and periureteral stranding. She was ordered for antibiotics and admitted for further treatment. Discharge Providers Provider Date of admission: 02/21/23 17:38 Discharge Date: 02/26/23 Discharge provider: Frandy Guzman DO Summary Hospital Course Discharge Diagnosis: 1. Acute pyelonephritis, POA and improving. -has been on antibiotics for three days as outpatient, admitted for worsening symptoms -Change from Ceftriaxone to oral Augmentin on 02/24/23, will finish 10 days of treatment -UA positive for infection and notable for blood. Final is 3 Gram-positive marilin. -blood cultures are negative -CT showed right hydronephrosis with no evidence of stone or mass, possibly secondary to infection, as JOHN improved for now I do not think she needs a urology consult 2. JOHN, POA, resolved -suspect secondary to infection -continue to monitor closely -JOHN improved with fluids -Cr now normal 3. Hematuria, POA and resolved. -secondary to infection -stopped apixaban on 02/22 due to hematuria, then restarted 3. Atrial fibrillation, POA and stable -continue dilt, metoprolol -held apixaban due to hematuria, then resumed on 02/24 4. Type 2 Diabetes, POA and stable. -continue insulin -ordered sliding scale -continue current regimen. 5. Hypertension, POA and stable.. -hold losartan due to john -resumed on discharge 6. Nocturnal hypoxia -req up to 4L NC at night, none in the daytime -home O2 arranged -should have outpatient sleep study done to assess for PRISCLILA. Hospital Course: Admitted for pyelo and given IV abx. Improved and sent home on po augmentin. Needed up to 4L NC at night so home O2 arranged. Should have outpatient sleep study done for PRISCILLA. JOHN resolved. Exam Vital Signs (past 8 hours): - 02/26/23 10:39 02/26/23 11:46 02/26/23 11:46 Temperature Pulse Rate 79 85 85 Respiratory Rate 16 18 Blood Pressure 176/79 H 155/79 H 155/79 H Pulse Oximetry Oxygen Flow Rate 02/26/23 16:00 02/26/23 16:40 02/26/23 17:26 Temperature 97.0 F L Pulse Rate 74 97 H Respiratory Rate 16 Blood Pressure 181/86 H 176/88 H 164/75 H Pulse Oximetry 97 Oxygen Flow Rate 0 Oxygen Delivery Method Nasal Cannula Oxygen Flow Rate 0 Narrative Exam Narrative: She is alert and oriented x3. She appears somewhat weak. Heart is regular rate and rhythm without murmur Lungs are clear to auscultation bilaterally Extremities have no ankle edema Objective Labs 02/24/23 05:08 02/24/23 14:25 [facility] Social History household members: friend(s) Smoking Status: Current every day smoker alcohol intake: never Discharge Plan Discharge Plan Patient Disposition: Home Provider Discharge Comment: You were admitted for a UTI. You received IV antibiotics and improved. Please finish a few more days of oral antibiotics at home. We determined that you need to wear oxygen at night, so you were sent home with this. Discharge orders & Medications Prescriptions: New amoxicillin-pot clavulanate 875-125 mg Tablet 1 tab PO BID 4 Days Qty: 8 0RF Continued metoprolol tartrate 100 mg tablet 100 mg PO DAILY nitrofurantoin macrocrystal 100 mg capsule 100 mg PO BID losartan 25 mg tablet 25 mg PO DAILY buspirone 7.5 mg tablet 7.5 mg PO BID omeprazole 20 mg capsule,delayed release(DR/EC) 20 mg PO QAM epinephrine 0.3 mg/0.3 mL auto-injector 0.3 ml IM PRN PRN (Reason: Allergic Reaction) diltiazem HCl 30 mg tablet 30 mg PO BID insulin glargine 100 unit/mL (3 mL) insulin pen 20 unit SUBCUT ONCE PM Eliquis 5 mg tablet 5 mg PO BID Follow up/Referrals: Shara Asencio PA-C [Non-Staff] - 2 Weeks Visit Report/Discharge Packet Stand Alone Forms: Patient Portal/API, Stroke Signs & Symptoms
== END 2023-02-26 19:45 | disposition home or self-care (01) | DRG 690 ==
LOC: ED 17:32 → AC 18:09
PROVIDERS: Hospitalist; Admitting Provider Internal Medicine; Emergency Provider Emergency Medicine; Visit Provider Internal Medicine
DX: N10 Acute pyelonephritis (principal); N17.9 Acute kidney failure, unspecified; I48.91 Unspecified atrial fibrillation; E11.9 Type 2 diabetes mellitus without complications; I10 Essential (primary) hypertension; R31.9 Hematuria, unspecified; R09.02 Hypoxemia; B96.89 Other specified bacterial agents as the cause of diseases classified elsewhere; F17.200 Nicotine dependence, unspecified, uncomplicated; Z79.01 Long term (current) use of anticoagulants; Z79.4 Long term (current) use of insulin
CPT/HCPCS: 36415; 71045; 74177; 80048; 80053; 81001; 82962; 83605; 83690; 84145; 85025; 87040; 87086; 94618; 94640; 94760; 96365; 96375; 99284; J0360; J0696; J1815; J1940; J2270; J2405; J2765; J7613; Q9967

== ENCOUNTER 2023-06-02 16:30 | Inpatient (IN) | payer OTHER, SELFPAY ==
[2023-02-21 19:38] VITALS: BMI 26.6
[2023-06-02] VITALS (75 sets, daily range): BP systolic 117–182; BP diastolic 67–99; PULSE 76–175; RESP 18–43; TEMP 36.4–36.9; O2SAT 91–100; BMI 25.7; BMI 25.3
--- NOTE | 2023-06-02 16:44 | DI.RAD.S_ITS ---
PROCEDURE: XR CHEST 1V INDICATIONS: SOB TECHNIQUE: One view of the chest was acquired. COMPARISON: [facility], CR, XR CHEST 1V, 02/26/2023, 8:17. FINDINGS: Surgical changes and devices: None. Lungs and pleura: Persistent appearance of blunting of the left costophrenic angle and mild retrocardiac opacity. Mediastinum: Mediastinal contours appear normal. Heart size is enlarged. Bones and chest wall: No suspicious bony lesions. Overlying soft tissues appear unremarkable. IMPRESSION: Persistent appearance of retrocardiac opacity/blunting of the left costophrenic angle. This could represent mild effusion with superimposed areas of atelectasis and/or pneumonia. Dictated by: Kita Driscoll M.D. on 06/02/2023 at 17:12 Approved by: Kita Driscoll M.D. on 06/02/2023 at 17:14
--- NOTE | 2023-06-02 16:51 | ED.GENADULT ---
HPI - General Adult <Grayson Samuel DO - Last Filed: 06/03/23 07:02> General Chief complaint: Shortness of Breath/Dyspnea Stated complaint: coughing, sob Time Seen by Provider: 06/02/23 16:37 Source: patient Mode of arrival: Family Vehicle Limitations: no limitations History of Present Illness HPI narrative: 63-year-old female who is here for evaluation of several days of coughing, shortness of breath, dehydration and occasional palpitations. She does have history of AFib. She has not taken her medicines in the past couple days because she just has not felt very well. Over the past couple days she has had episodes where her heart rate has been fast. No fevers. No abdominal pain. No lower extremity swelling. Related Data Home Medications Medication Instructions Recorded Confirmed apixaban 5 mg tablet (Eliquis) 5 mg PO BID blood clot 02/21/23 06/02/23 buspirone 7.5 mg tablet 7.5 mg PO BID 02/21/23 06/02/23 diltiazem HCl 30 mg tablet 30 mg PO BID 02/21/23 06/02/23 epinephrine 0.3 mg/0.3 mL 0.3 ml IM PRN PRN Allergic Reaction 02/21/23 06/02/23 injection, auto-injector insulin glargine 100 unit/mL (3 20 unit SUBCUT ONCE PM 02/21/23 06/02/23 mL) subcutaneous pen losartan 25 mg tablet 25 mg PO DAILY 02/21/23 06/02/23 metoprolol tartrate 100 mg tablet 100 mg PO DAILY 02/21/23 06/02/23 nitrofurantoin macrocrystal 100 mg 100 mg PO BID infectious disease 02/21/23 06/02/23 capsule omeprazole 20 mg capsule,delayed 20 mg PO QAM 02/21/23 06/02/23 release Allergies Allergy/AdvReac Type Severity Reaction Status Date / Time diphenhydramine Allergy Unknown ITCHING Verified 06/02/23 16:36 [From TOMI] Review of Systems <Grayson Samuel DO - Last Filed: 06/03/23 07:02> Constitutional Constitutional: Reports system reviewed and no additional complaints, except as documented Cardiovascular Cardiovascular: Reports system reviewed and no additional complaints, except as documented Respiratory Respiratory: Reports system reviewed and no additional complaints, except as documented Gastrointestinal Gastrointestinal: Reports system reviewed and no additional complaints, except as documented Integumentary/Breasts Skin/Breast: Reports system reviewed and no additional complaints, except as documented Neurologic Neurologic: Reports system reviewed and no additional complaints, except as documented Hematologic/Lymphatic On Anticoagulants: No Patient History <Grayson Samuel DO - Last Filed: 06/03/23 07:02> Social History household members: friend(s) Smoking Status: Current every day smoker alcohol intake: never Smoking Status: Current every day smoker tobacco type: cigarettes Substance Use Type: marijuana Exam <Grayson Samuel DO - Last Filed: 06/03/23 07:02> Initial Vital Signs Initial Vital Signs: Vital Signs Temperature 97.8 F 06/02/23 16:33 Pulse Rate 82 06/02/23 16:33 Respiratory Rate 18 06/02/23 16:33 Blood Pressure 165/78 H 06/02/23 16:33 Pulse Oximetry 94 06/02/23 16:33 Oxygen Delivery Method Room Air 06/02/23 16:33 Const General: cooperative and No ill appearing HENPR Head: normal to inspection and normocephalic Resp Effort & Inspection: normal respiratory effort, cough and tachypneic Cardio Rate: tachycardic Rhythm: abnormal rhythm GI Inspection: normal to inspection and non-distended Neuro General: patient alert, patient awake and moves all extremities <Candace House MD - Last Filed: 06/03/23 02:29> Initial Vital Signs Initial Vital Signs: Vital Signs Temperature 97.8 F 06/02/23 16:33 Pulse Rate 82 06/02/23 16:33 Respiratory Rate 18 06/02/23 16:33 Blood Pressure 165/78 H 06/02/23 16:33 Pulse Oximetry 94 06/02/23 16:33 Oxygen Delivery Method Room Air 06/02/23 16:33 Course <Grayson Samuel DO - Last Filed: 06/03/23 07:02> Orders Ordered: Acetaminophen (Acetaminophen 325 Mg Tablet) 650 mg PO Q6H [facility] Last Admin: 06/03/23 04:23 Dose: Not Given Documented By: Admin: 06/02/23 23:18 Dose: 650 mg Documented By: Hydrocodone Bitart/Acetaminophen (Hydrocodone/Acet 5/325 Tablet) 1 tab PO Q4H PRN PRN Reason: Pain, Moderate (4-6) Albuterol/Ipratropium (Albuterol/Ipratropium 3 Ml Ampul) 3 ml INH RTQ4HR PRN PRN Reason: Shortness Of Breath Last Admin: 06/03/23 06:47 Dose: 3 ml Documented By: LASHANDA Apixaban (Apixaban 5 Mg Tablet) 5 mg PO BID ELIF Azithromycin (Azithromycin 250 Mg Tablet) 250 mg PO Q24H ELIF Buspirone HCl (Buspirone 5 Mg Tablet) 7.5 mg PO BID ELIF Diltiazem HCl (Diltiazem 30 Mg Tablet) 30 mg PO Q6HR EL[facility] Last Admin: 06/03/23 05:27 Dose: 30 mg Documented By: Admin: 06/02/23 23:19 Dose: 30 mg Documented By: DILTIAZEM (Diltiazem 125 Mg/125 Ml-D5w) 125 mg in 125 mls @ 5 mls/hr IV TITRATE ELIF; Protocol Last Titration: 06/02/23 20:19 Dose: 0 mg/hr, 0 mls/hr Documented By: Titration: 06/02/23 17:43 Dose: 15 mg/hr, 15 mls/hr Documented By: Titration: 06/02/23 17:28 Dose: 10 mg/hr, 10 mls/hr Documented By: Admin: 06/02/23 17:12 Dose: 5 mg/hr, 5 mls/hr Documented By: HENRIQUE Ceftriaxone Sodium 1,000 mg/ (Sodium Chloride) 100 mls @ 200 mls/hr IV Q24H ELIF Dextrose (D10w) 100 mls @ 1,200 mls/hr IV PRN PRN PRN Reason: Hypoglycemia Insulin Human Lispro (Insulin Lispro 100 Unit/Ml 3ml Vial) 0 unit SUBCUT ACHS ELIF; Protocol Metoprolol Tartrate (Metoprolol Ir 50 Mg Tablet) 100 mg PO DAILY [facility] Naloxone HCl (Naloxone 0.4 Mg/Ml Vial) 0.2 mg IV Q2MIN PRN PRN Reason: Opiate Reversal Nitrofurantoin Macrocrystals (Nitrofurantoin Er 100 Mg Capsule) 100 mg PO BID [facility] Non-Formulary Medication (Epinephrine) 0.3 ml IM PRN PRN PRN Reason: Allergic Reaction Ondansetron HCl (Ondansetron 4 Mg/2 Ml Inj) 4 mg IV Q8HR PRN PRN Reason: Nausea And Vomiting Pantoprazole Sodium (Pantoprazole Dr 20 Mg Tablet) 20 mg PO DAILY ELIF Discontinued Medications Apixaban (Apixaban 5 Mg Tablet) 5 mg PO NOW ONE Stop: 06/02/23 19:46 Last Admin: 06/02/23 19:49 Dose: 5 mg Documented By: HENRIQUE Diltiazem HCl (Diltiazem 5 Mg/Ml Sdv) 20 mg IV NOW ONE Stop: 06/02/23 16:46 Last Admin: 06/02/23 16:52 Dose: 20 mg Documented By: FAISAL Ceftriaxone Sodium 1,000 mg/ (Sodium Chloride) 100 mls @ 200 mls/hr IV NOW ONE Stop: 06/02/23 19:10 Last Infusion: 06/02/23 19:53 Dose: Infused Documented By: Admin: 06/02/23 19:22 Dose: 200 mls/hr Documented By: HENRIQUE Azithromycin 500 mg/ Dextrose 250 mls @ 250 mls/hr IV NOW ONE Stop: 06/02/23 19:10 Last Infusion: 06/02/23 20:45 Dose: Infused Documented By: Admin: 06/02/23 19:38 Dose: 250 mls/hr Documented By: HENRIQUE Azithromycin 500 mg/ Dextrose 250 mls @ 250 mls/hr IV NOW ONE Stop: 06/02/23 19:20 Last Admin: 06/02/23 19:21 Dose: Not Given Documented By: HENRIQUE Insulin Glargine (Insulin Glargine 100 Unit/Ml 3ml Pen) 20 unit SUBCUT NOW ONE Stop: 06/02/23 22:01 Last Admin: 06/02/23 23:18 Dose: 20 unit Documented By: Co-signed By: (2) Metoprolol Tartrate (Metoprolol Tartrate 5 Mg/5 Ml Inj) 5 mg IV Q5M [facility] Stop: 06/02/23 19:41 Last Admin: 06/02/23 19:49 Dose: Not Given Documented By: Admin: 06/02/23 19:49 Dose: Not Given Documented By: Admin: 06/02/23 19:37 Dose: 5 mg Documented By: HENRIQUE Vital Signs Vital signs: Vital Signs - 8 hr 06/02/23 18:35 06/02/23 18:36 06/02/23 18:36 Pulse Rate 119 H 112 H Respiratory Rate 24 23 Blood Pressure 159/82 H Pulse Oximetry 96 96 Oxygen Delivery Method Oxygen Flow Rate 06/02/23 18:40 06/02/23 18:45 06/02/23 18:50 Pulse Rate 119 H 117 H 109 H Respiratory Rate 25 H 23 23 Blood Pressure Pulse Oximetry 93 93 95 Oxygen Delivery Method Nasal Cannula Oxygen Flow Rate 2 06/02/23 18:55 06/02/23 19:00 06/02/23 19:00 Pulse Rate 107 H 115 H Respiratory Rate 22 21 Blood Pressure 160/93 H Pulse Oximetry 96 97 Oxygen Delivery Method Oxygen Flow Rate 06/02/23 19:05 06/02/23 19:10 06/02/23 19:15 Pulse Rate 113 H 117 H 120 H Respiratory Rate 22 23 23 Blood Pressure Pulse Oximetry 94 94 94 Oxygen Delivery Method Nasal Cannula Oxygen Flow Rate 4 06/02/23 19:15 06/02/23 19:20 06/02/23 19:25 Pulse Rate 119 H 123 H Respiratory Rate 24 24 Blood Pressure 135/77 Pulse Oximetry 94 95 Oxygen Delivery Method Oxygen Flow Rate 06/02/23 19:30 06/02/23 19:30 06/02/23 19:35 Pulse Rate 115 H 108 H Respiratory Rate 24 23 Blood Pressure 141/83 H Pulse Oximetry 92 92 Oxygen Delivery Method Oxygen Flow Rate 06/02/23 19:40 06/02/23 19:45 06/02/23 19:45 Pulse Rate 110 H 91 H Respiratory Rate 23 24 Blood Pressure 131/72 Pulse Oximetry 93 96 Oxygen Delivery Method Oxygen Flow Rate 06/02/23 19:50 06/02/23 19:55 Pulse Rate 76 76 Respiratory Rate 23 22 Blood Pressure Pulse Oximetry 95 94 Oxygen Delivery Method Oxygen Flow Rate <Candace House MD - Last Filed: 06/03/23 02:29> Orders Ordered: Acetaminophen (Acetaminophen 325 Mg Tablet) 650 mg PO Q6H [facility] Last Admin: 06/03/23 04:23 Dose: Not Given Documented By: Admin: 06/02/23 23:18 Dose: 650 mg Documented By: Hydrocodone Bitart/Acetaminophen (Hydrocodone/Acet 5/325 Tablet) 1 tab PO Q4H PRN PRN Reason: Pain, Moderate (4-6) Albuterol/Ipratropium (Albuterol/Ipratropium 3 Ml Ampul) 3 ml INH RTQ4HR PRN PRN Reason: Shortness Of Breath Last Admin: 06/03/23 06:47 Dose: 3 ml Documented By: LASHANDA Apixaban (Apixaban 5 Mg Tablet) 5 mg PO BID ELIF Azithromycin (Azithromycin 250 Mg Tablet) 250 mg PO Q24H ELIF Buspirone HCl (Buspirone 5 Mg Tablet) 7.5 mg PO BID ELIF Diltiazem HCl (Diltiazem 30 Mg Tablet) 30 mg PO Q6HR ELIF Last Admin: 06/03/23 05:27 Dose: 30 mg Documented By: Admin: 06/02/23 23:19 Dose: 30 mg Documented By: DILTIAZEM (Diltiazem 125 Mg/125 Ml-D5w) 125 mg in 125 mls @ 5 mls/hr IV TITRATE ELIF; Protocol Last Titration: 06/02/23 20:19 Dose: 0 mg/hr, 0 mls/hr Documented By: Titration: 06/02/23 17:43 Dose: 15 mg/hr, 15 mls/hr Documented By: Titration: 06/02/23 17:28 Dose: 10 mg/hr, 10 mls/hr Documented By: Admin: 06/02/23 17:12 Dose: 5 mg/hr, 5 mls/hr Documented By: HENRIQUE Ceftriaxone Sodium 1,000 mg/ (Sodium Chloride) 100 mls @ 200 mls/hr IV Q24H ELIF Dextrose (D10w) 100 mls @ 1,200 mls/hr IV PRN PRN PRN Reason: Hypoglycemia Insulin Human Lispro (Insulin Lispro 100 Unit/Ml 3ml Vial) 0 unit SUBCUT ACHS ELIF; Protocol Metoprolol Tartrate (Metoprolol Ir 50 Mg Tablet) 100 mg PO DAILY [facility] Naloxone HCl (Naloxone 0.4 Mg/Ml Vial) 0.2 mg IV Q2MIN PRN PRN Reason: Opiate Reversal Nitrofurantoin Macrocrystals (Nitrofurantoin Er 100 Mg Capsule) 100 mg PO BID [facility] Non-Formulary Medication (Epinephrine) 0.3 ml IM PRN PRN PRN Reason: Allergic Reaction Ondansetron HCl (Ondansetron 4 Mg/2 Ml Inj) 4 mg IV Q8HR PRN PRN Reason: Nausea And Vomiting Pantoprazole Sodium (Pantoprazole Dr 20 Mg Tablet) 20 mg PO DAILY ELIF Discontinued Medications Apixaban (Apixaban 5 Mg Tablet) 5 mg PO NOW ONE Stop: 06/02/23 19:46 Last Admin: 06/02/23 19:49 Dose: 5 mg Documented By: HENRIQUE Diltiazem HCl (Diltiazem 5 Mg/Ml Sdv) 20 mg IV NOW ONE Stop: 06/02/23 16:46 Last Admin: 06/02/23 16:52 Dose: 20 mg Documented By: FAISAL Ceftriaxone Sodium 1,000 mg/ (Sodium Chloride) 100 mls @ 200 mls/hr IV NOW ONE Stop: 06/02/23 19:10 Last Infusion: 06/02/23 19:53 Dose: Infused Documented By: Admin: 06/02/23 19:22 Dose: 200 mls/hr Documented By: HENRIQUE Azithromycin 500 mg/ Dextrose 250 mls @ 250 mls/hr IV NOW ONE Stop: 06/02/23 19:10 Last Infusion: 06/02/23 20:45 Dose: Infused Documented By: Admin: 06/02/23 19:38 Dose: 250 mls/hr Documented By: HENRIQUE Azithromycin 500 mg/ Dextrose 250 mls @ 250 mls/hr IV NOW ONE Stop: 06/02/23 19:20 Last Admin: 06/02/23 19:21 Dose: Not Given Documented By: HENRIQUE Insulin Glargine (Insulin Glargine 100 Unit/Ml 3ml Pen) 20 unit SUBCUT NOW ONE Stop: 06/02/23 22:01 Last Admin: 06/02/23 23:18 Dose: 20 unit Documented By: Co-signed By: (2) Metoprolol Tartrate (Metoprolol Tartrate 5 Mg/5 Ml Inj) 5 mg IV Q5M [facility] Stop: 06/02/23 19:41 Last Admin: 06/02/23 19:49 Dose: Not Given Documented By: Admin: 06/02/23 19:49 Dose: Not Given Documented By: Admin: 06/02/23 19:37 Dose: 5 mg Documented By: HENRIQUE Vital Signs Vital signs: Vital Signs - 8 hr 06/02/23 18:35 06/02/23 18:36 06/02/23 18:36 Pulse Rate 119 H 112 H Respiratory Rate 24 23 Blood Pressure 159/82 H Pulse Oximetry 96 96 Oxygen Delivery Method Oxygen Flow Rate 06/02/23 18:40 06/02/23 18:45 06/02/23 18:50 Pulse Rate 119 H 117 H 109 H Respiratory Rate 25 H 23 23 Blood Pressure Pulse Oximetry 93 93 95 Oxygen Delivery Method Nasal Cannula Oxygen Flow Rate 2 06/02/23 18:55 06/02/23 19:00 06/02/23 19:00 Pulse Rate 107 H 115 H Respiratory Rate 22 21 Blood Pressure 160/93 H Pulse Oximetry 96 97 Oxygen Delivery Method Oxygen Flow Rate 06/02/23 19:05 06/02/23 19:10 06/02/23 19:15 Pulse Rate 113 H 117 H 120 H Respiratory Rate 22 23 23 Blood Pressure Pulse Oximetry 94 94 94 Oxygen Delivery Method Nasal Cannula Oxygen Flow Rate 4 06/02/23 19:15 06/02/23 19:20 06/02/23 19:25 Pulse Rate 119 H 123 H Respiratory Rate 24 24 Blood Pressure 135/77 Pulse Oximetry 94 95 Oxygen Delivery Method Oxygen Flow Rate 06/02/23 19:30 06/02/23 19:30 06/02/23 19:35 Pulse Rate 115 H 108 H Respiratory Rate 24 23 Blood Pressure 141/83 H Pulse Oximetry 92 92 Oxygen Delivery Method Oxygen Flow Rate 06/02/23 19:40 06/02/23 19:45 06/02/23 19:45 Pulse Rate 110 H 91 H Respiratory Rate 23 24 Blood Pressure 131/72 Pulse Oximetry 93 96 Oxygen Delivery Method Oxygen Flow Rate 06/02/23 19:50 06/02/23 19:55 Pulse Rate 76 76 Respiratory Rate 23 22 Blood Pressure Pulse Oximetry 95 94 Oxygen Delivery Method Oxygen Flow Rate Medical Decision Making <Grayson Samuel DO - Last Filed: 06/03/23 07:02> Lab Data Lab results reviewed: Yes I reviewed the patient's lab results. 06/03/23 03:50 06/03/23 03:50 Labs: Lab Results 06/02/23 06/02/23 06/02/23 Range/Units 16:46 16:53 17:30 WBC 11.3 H (4.5-11.0) X10^3/uL RBC 5.78 H (4.0-5.2) X10^6/uL Hgb 15.0 (12.0-16.0) g/dL Hct 47.0 H (36-46) % MCV 81.4 (80-100) fL MCH 26.0 (26-34) PG MCHC 31.9 (30-36) % RDW 16.5 H (11.6-14.8) % Plt Count 234 (150-400) X10^3/uL Neut % (Auto) 80.4 H (50-75) % Lymph % (Auto) 8.2 L (25-40) % [place] % (Auto) 8.4 (3-14) % Eos % (Auto) 2.4 (2-4) % Baso % (Auto) 0.6 (0-2) % Neut # (Auto) 9100 H (9374-6124) /uL Lymph # (Auto) 900 L (9549-3216) /uL [place] # (Auto) 900 (0-900) /uL Eos # (Auto) 300 (0-450) /uL Baso # (Auto) 100 (0-100) /uL PT 12.5 (9.4-12.5) SECONDS INR 1.1 (0.9-1.3) APTT 32 (25.1-36.5) SECONDS Sodium 134 L (137-145) mmol/L Potassium 4.5 (3.4-5.1) mmol/L Chloride 99 (98-107) mmol/L Carbon Dioxide 23 (22-32) mmol/L BUN 29 H (7-17) mg/dL Creatinine 0.94 (0.52-1.04) mg/dL Estimated GFR > 60 (>60) mL/min BUN/Creatinine Ratio 30.9 H (6-22) Glucose 141 H (80-110) mg/dL Calcium 9.3 (8.4-10.2) mg/dL Magnesium 1.9 (1.6-2.3) mg/dL Total Bilirubin 1.0 (0.2-1.3) mg/dL AST 32 (14-36) IU/L ALT 26 (<35) IU/L Alkaline Phosphatase 141 H (38-126) U/L Total Creatine Kinase 150 H (30-135) U/L Troponin I 0.255 H* (0.01-0.034) ng/mL NT-Pro-B Natriuret Pep (<125) pg/mL Total Protein 7.9 (6.3-8.2) g/dL Albumin 4.5 (3.5-5.0) g/dL Globulin 3.4 (1.7-4.1) g/dL Albumin/Globulin Ratio 1.3 (1.0-2.8) Lipase 63 (23-300) U/L SARS-CoV-2 (PCR) Negative (Negative) Influenza A (RT-PCR) Flu a negative (NEGATIVE) Influenza B (RT-PCR) Flu b negative (NEGATIVE) RSV (PCR) Negative (Negative) 06/02/23 Range/Units 19:02 WBC (4.5-11.0) X10^3/uL RBC (4.0-5.2) X10^6/uL Hgb (12.0-16.0) g/dL Hct (36-46) % MCV (80-100) fL MCH (26-34) PG MCHC (30-36) % RDW (11.6-14.8) % Plt Count (150-400) X10^3/uL Neut % (Auto) (50-75) % Lymph % (Auto) (25-40) % [place] % (Auto) (3-14) % Eos % (Auto) (2-4) % Baso % (Auto) (0-2) % Neut # (Auto) (8021-4128) /uL Lymph # (Auto) (1266-2425) /uL [place] # (Auto) (0-900) /uL Eos # (Auto) (0-450) /uL Baso # (Auto) (0-100) /uL PT (9.4-12.5) SECONDS INR (0.9-1.3) APTT (25.1-36.5) SECONDS Sodium (137-145) mmol/L Potassium (3.4-5.1) mmol/L Chloride (98-107) mmol/L Carbon Dioxide (22-32) mmol/L BUN (7-17) mg/dL Creatinine (0.52-1.04) mg/dL Estimated GFR (>60) mL/min BUN/Creatinine Ratio (6-22) Glucose (80-110) mg/dL Calcium (8.4-10.2) mg/dL Magnesium (1.6-2.3) mg/dL Total Bilirubin (0.2-1.3) mg/dL AST (14-36) IU/L ALT (<35) IU/L Alkaline Phosphatase (38-126) U/L Total Creatine Kinase (30-135) U/L Troponin I 0.359 H* (0.01-0.034) ng/mL NT-Pro-B Natriuret Pep 3760 H (<125) pg/mL Total Protein (6.3-8.2) g/dL Albumin (3.5-5.0) g/dL Globulin (1.7-4.1) g/dL Albumin/Globulin Ratio (1.0-2.8) Lipase (23-300) U/L SARS-CoV-2 (PCR) (Negative) Influenza A (RT-PCR) (NEGATIVE) Influenza B (RT-PCR) (NEGATIVE) RSV (PCR) (Negative) Imaging Data Chest x-ray: Radiologist's Impression: PROCEDURE: XR CHEST 1V INDICATIONS: SOB TECHNIQUE: One view of the chest was acquired. COMPARISON: [facility], , XR CHEST 1V, 02/26/2023, 8:17. FINDINGS: Surgical changes and devices: None. Lungs and pleura: Persistent appearance of blunting of the left costophrenic angle and mild retrocardiac opacity. Mediastinum: Mediastinal contours appear normal. Heart size is enlarged. Bones and chest wall: No suspicious bony lesions. Overlying soft tissues appear unremarkable. IMPRESSION: Persistent appearance of retrocardiac opacity/blunting of the left costophrenic angle. This could represent mild effusion with superimposed areas of atelectasis and/or pneumonia. ECG Data Attestation: I personally reviewed and interpreted this ECG as follows: Interpretation: Atrial fibrillation Ventricular rate of 117 Normal axis Normal QRS Normal QTC Nonspecific ST T wave changes MDM Narrative Medical decision making narrative: Initially patient was not tachycardic however when she arrived to the exam room her heart rate was greater than 150. It appears she has had symptoms over the past several days. She has not taken her medicine the past couple days. Has not been on anticoagulation during this time as well. She has no chest pain. Has cough and congestion. Patient started on diltiazem. Heart rate did improve but still in AFib. Care turned over to Dr. House to follow-up on labs and disposition. <Candace House MD - Last Filed: 06/03/23 02:29> Lab Data Labs: Lab Results 06/02/23 06/02/23 06/02/23 Range/Units 16:46 16:53 17:30 WBC 11.3 H (4.5-11.0) X10^3/uL RBC 5.78 H (4.0-5.2) X10^6/uL Hgb 15.0 (12.0-16.0) g/dL Hct 47.0 H (36-46) % MCV 81.4 (80-100) fL MCH 26.0 (26-34) PG MCHC 31.9 (30-36) % RDW 16.5 H (11.6-14.8) % Plt Count 234 (150-400) X10^3/uL Neut % (Auto) 80.4 H (50-75) % Lymph % (Auto) 8.2 L (25-40) % [place] % (Auto) 8.4 (3-14) % Eos % (Auto) 2.4 (2-4) % Baso % (Auto) 0.6 (0-2) % Neut # (Auto) 9100 H (0037-2081) /uL Lymph # (Auto) 900 L (6993-8490) /uL [place] # (Auto) 900 (0-900) /uL Eos # (Auto) 300 (0-450) /uL Baso # (Auto) 100 (0-100) /uL PT 12.5 (9.4-12.5) SECONDS INR 1.1 (0.9-1.3) APTT 32 (25.1-36.5) SECONDS Sodium 134 L (137-145) mmol/L Potassium 4.5 (3.4-5.1) mmol/L Chloride 99 (98-107) mmol/L Carbon Dioxide 23 (22-32) mmol/L BUN 29 H (7-17) mg/dL Creatinine 0.94 (0.52-1.04) mg/dL Estimated GFR > 60 (>60) mL/min BUN/Creatinine Ratio 30.9 H (6-22) Glucose 141 H (80-110) mg/dL Calcium 9.3 (8.4-10.2) mg/dL Magnesium 1.9 (1.6-2.3) mg/dL Total Bilirubin 1.0 (0.2-1.3) mg/dL AST 32 (14-36) IU/L ALT 26 (<35) IU/L Alkaline Phosphatase 141 H (38-126) U/L Total Creatine Kinase 150 H (30-135) U/L Troponin I 0.255 H* (0.01-0.034) ng/mL NT-Pro-B Natriuret Pep (<125) pg/mL Total Protein 7.9 (6.3-8.2) g/dL Albumin 4.5 (3.5-5.0) g/dL Globulin 3.4 (1.7-4.1) g/dL Albumin/Globulin Ratio 1.3 (1.0-2.8) Lipase 63 (23-300) U/L SARS-CoV-2 (PCR) Negative (Negative) Influenza A (RT-PCR) Flu a negative (NEGATIVE) Influenza B (RT-PCR) Flu b negative (NEGATIVE) RSV (PCR) Negative (Negative) 06/02/23 Range/Units 19:02 WBC (4.5-11.0) X10^3/uL RBC (4.0-5.2) X10^6/uL Hgb (12.0-16.0) g/dL Hct (36-46) % MCV (80-100) fL MCH (26-34) PG MCHC (30-36) % RDW (11.6-14.8) % Plt Count (150-400) X10^3/uL Neut % (Auto) (50-75) % Lymph % (Auto) (25-40) % [place] % (Auto) (3-14) % Eos % (Auto) (2-4) % Baso % (Auto) (0-2) % Neut # (Auto) (3098-2085) /uL Lymph # (Auto) (6983-3524) /uL [place] # (Auto) (0-900) /uL Eos # (Auto) (0-450) /uL Baso # (Auto) (0-100) /uL PT (9.4-12.5) SECONDS INR (0.9-1.3) APTT (25.1-36.5) SECONDS Sodium (137-145) mmol/L Potassium (3.4-5.1) mmol/L Chloride (98-107) mmol/L Carbon Dioxide (22-32) mmol/L BUN (7-17) mg/dL Creatinine (0.52-1.04) mg/dL Estimated GFR (>60) mL/min BUN/Creatinine Ratio (6-22) Glucose (80-110) mg/dL Calcium (8.4-10.2) mg/dL Magnesium (1.6-2.3) mg/dL Total Bilirubin (0.2-1.3) mg/dL AST (14-36) IU/L ALT (<35) IU/L Alkaline Phosphatase (38-126) U/L Total Creatine Kinase (30-135) U/L Troponin I 0.359 H* (0.01-0.034) ng/mL NT-Pro-B Natriuret Pep 3760 H (<125) pg/mL Total Protein (6.3-8.2) g/dL Albumin (3.5-5.0) g/dL Globulin (1.7-4.1) g/dL Albumin/Globulin Ratio (1.0-2.8) Lipase (23-300) U/L SARS-CoV-2 (PCR) (Negative) Influenza A (RT-PCR) (NEGATIVE) Influenza B (RT-PCR) (NEGATIVE) RSV (PCR) (Negative) MDM Narrative Medical decision making narrative: Initially patient was not tachycardic however when she arrived to the exam room her heart rate was greater than 150. It appears she has had symptoms over the past several days. She has not taken her medicine the past couple days. Has not been on anticoagulation during this time as well. She has no chest pain. Has cough and congestion. Patient started on diltiazem. Heart rate did improve but still in AFib. Care turned over to Dr. House to follow-up on labs and disposition. Harsh -patient persistently tachycardic despite being on diltiazem drip. Patient is currently supposed to be taking both diltiazem and metoprolol, single dose of 5 mg IV metoprolol improved heart rate to 80s. Laboratory work is significant for WBC count 11.3 with neutrophil 80%. Troponin 0.255, repeat 0.359, BNP 3760. EKG shows T-wave inversions in lead 3, AVF, patient adamantly denying chest pain, states that her only complaint is shortness of breath and cough. Chest x-ray shows possible retrocardiac opacity, given patient's shortness of breath and elevated troponin is CT angio was ordered. CT angio negative for pulmonary embolism, small left-sided infiltrate noted. Given patient's leukocytosis, left shift, shortness of breath, and productive cough we will treat as pneumonia with Rocephin and azithromycin. Plan to admit for further treatment. Critical Care Time <Candace House MD - Last Filed: 06/03/23 02:29> Critical Care Time Critical Care Time: Yes Total Critical Care Time: 36 Attestation: Atrial fibrillation with RVR requiring IV diltiazem and metoprolol, hemodynamic reassessments Discharge Plan Departure Patient Disposition: Admitted As Inpatient Clinical Impression: Acute dyspnea, Atrial fibrillation with RVR Pneumonia Qualifiers: Pneumonia type: due to unspecified organism Admit Date/Time: 06/02/23 19:57 Admit Provider: Felix Suarez
[2023-06-02] MEDS: dilTIAZem 5 MG/ML SDV 20 MG IV (16:52)
--- NOTE | 2023-06-02 17:01 | PC.NURSE ---
RN at bedside, placed on monitoring equipment, found to have HR 170-175, Dr. Samuel and hot car charger aware. RT called for EKG stat. RN at bedside for monitoring and IV placement.
[2023-06-02] MEDS: DILTIAZEM 125 MG/125 ML PIGGYBACK IV (17:12)
[2023-06-02 17:18] LABS: Alanine Aminotransferase 26 IU/L (<35); Albumin 4.5 g/dL (3.5-5.0); Albumin Globulin Ratio 1.3 (1.0-2.8); Alkaline Phosphatase 141 U/L (38-126); Aspartate Aminotransferase 32 IU/L (14-36); BUN Creatinine Ratio 30.9 (6-22); Blood Urea Nitrogen 29 mg/dL (7-17); Calcium 9.3 mg/dL (8.4-10.2); Carbon Dioxide 23 mmol/L (22-32); Chloride 99 mmol/L (98-107); Creatine Kinase 150 U/L (30-135); Estimated Glomerular Filt Rate > 60 mL/min (>60); Globulin 3.4 g/dL (1.7-4.1); Glucose 141 mg/dL (80-110); Lipase 63 U/L (23-300); Magnesium 1.9 mg/dL (1.6-2.3); Potassium 4.5 mmol/L (3.4-5.1); Sodium 134 mmol/L (137-145); Total Protein 7.9 g/dL (6.3-8.2)
[2023-06-02 17:31] LABS: Add Manual Diff / Slide Review NO; Basophils Absolute Auto 100 /uL (0-100); Basophils Percent Auto 0.6 % (0-2); Eosinophils Absolute Auto 300 /uL (0-450); Eosinophils Percent Auto 2.4 % (2-4); Lymphocytes Absolute Auto 900 /uL (1100-4500); Lymphocytes Percent Auto 8.2 % (25-40); Mean Corpuscular HGB Conc 31.9 % (30-36); Mean Corpuscular Volume 81.4 fL (80-100); Monocytes Absolute Auto 900 /uL (0-900); Monocytes Percent Auto 8.4 % (3-14); Neutrophils Absolute Auto 9100 /uL (1500-7000); Neutrophils Percent Auto 80.4 % (50-75); Platelet Count 234 X10^3/uL (150-400); Red Blood Cell Count 5.78 X10^6/uL (4.0-5.2); Red Cell Distribution Width 16.5 % (11.6-14.8); White Blood Cell Count 11.3 X10^3/uL (4.5-11.0)
[2023-06-02 17:40] LABS: Influenza A - CEPHEID Flu A NEGATIVE (NEGATIVE); Influenza B - CEPHEID Flu B NEGATIVE (NEGATIVE); Respiratory Syncytial Virus Negative (Negative)
--- NOTE | 2023-06-02 17:48 | PC.NURSE ---
friends of pt, pt can verbal consent to share information and take their numbers for contacting Qi Peter (roommate) [phone] Deacon Earl (roommate) [phone] Amanda Almanza (roommate) [phone]
[2023-06-02 17:50] LABS: INR 1.1 (0.9-1.3); Prothrombin Time 12.5 SECONDS (9.4-12.5)
[2023-06-02 17:53] LABS: PTT Partial Thromboplastin Tim 32 SECONDS (25.1-36.5)
[2023-06-02 17:54] LABS: Troponin I 0.255 ng/mL (0.01-0.034)
[2023-06-02 17:58] LABS: COVID-19 CEPHEID 4-PLEX PCR Negative (Negative)
[2023-06-02 18:01] LABS: HEMOLYSIS < 15 (0-50)
--- NOTE | 2023-06-02 18:02 | DI.CT.S_ITS ---
PROCEDURE: CT ANGIO CHEST PE PROTOCOL INDICATIONS: TACHYCARDIA, LOW O2, ELEVATED TROPONIN TECHNIQUE: After the administration of intravenous contrast, 2 mm thick sections acquired from the pulmonary apices to the posterior costophrenic angles. 3-dimensional maximum intensity projection (MIP) coronal and sagittal reformats were then acquired through the thorax. For radiation dose reduction, the following was used: automated exposure control, adjustment of mA and/or kV according to patient size. COMPARISON: Merged With [facility], CR, XR CHEST 1V, 06/02/2023, 16:59. CT, CT ANGIO CHEST PE, 06/07/2015, 12:28. FINDINGS: Image quality: Diagnostic. Pulmonary arteries: Pulmonary arteries are normal in size, and demonstrate no intraluminal filling defects to suggest central pulmonary embolism. Lower Neck: No enlarged lymph nodes. Thyroid: No thyroid nodules which require sonographic follow up, per consensus guidelines. Axillae: No enlarged lymph nodes. Chest Wall: Unremarkable. Bones: Unremarkable. Lungs and Pleura: Consolidative opacity is present within the left base. Heart: Heart size is enlarged. Mild pericardial effusion. Thoracic Vessels: No aortic aneurysm. Mediastinum and Joan: Borderline enlarged lymph nodes. Esophagus: No wall thickening. No hiatal hernia. Upper Abdomen: Visualized upper abdomen solid organs and bowel loops appear normal. IMPRESSION: No pulmonary embolus. Consolidative opacity is present within the left base. While this could represent focus of compressive atelectasis, pneumonia should be considered, given borderline appearance of mediastinal lymph nodes possibly reactive in nature. Recommend short interval imaging follow-up to document resolution and exclude presence of underlying mass lesion. Dictated by: Kita Driscoll M.D. on 06/02/2023 at 18:43 Approved by: Kita Driscoll M.D. on 06/02/2023 at 18:45
[2023-06-02] MEDS: cefTRIAXone 1,000 MG in SODIUM CHLORIDE 0.9% 100 ML 200 MG IV (19:22)
[2023-06-02 19:33] LABS: NT-proBNP (BNP-Adult 18+) 3760 pg/mL (<125)
[2023-06-02] MEDS: METOPROLOL TARTRATE 5 MG/5 ML INJ IV (19:37)
[2023-06-02] MEDS: AZITHROMYCIN 500 MG in DEXTROSE 5% IN WATER 250 ML 250 MG IV (19:38)
[2023-06-02 19:39] LABS: Troponin I 0.359 ng/mL (0.01-0.034)
[2023-06-02] MEDS: APIXABAN 5 MG TABLET PO (19:49)
--- NOTE | 2023-06-02 20:19 | PC.NURSE ---
verbal read back from Dr. House to pause dilt and monitor. HR lowered w/ metoprolol push x 1
[2023-06-02] MEDS: ACETAMINOPHEN 325 MG TABLET 650 MG PO (23:18)
[2023-06-02] MEDS: INSULIN GLARGINE 100 UNIT/ML 3ML PEN 20 UNIT SUBCUT (23:18)
[2023-06-02] MEDS: dilTIAZem 30 MG TABLET PO (23:19)
--- NOTE | 2023-06-02 23:46 | PM.HP.1 ---
History of Present Illness History of Present Illness Date Patient Seen: 06/02/23 Time Patient Seen: 22:30 Chief complaint: coughing, sob Narrative: 63 years old female with a past medical history of hypertension, diabetes, chronic smoker, previous hospitalization for pyelonephritis/hematuria, atrial fibrillation, nocturnal hypoxia and multiple other medical issues presented to the emergency room with worsening shortness of breath with cough that is productive with whitish mucoid and yellow sputum intermittently and palpitations. Denies any chest pain dizziness or loss of consciousness. Denies any fever episodes. Does have shortness of breath worse with exertion. Denies any orthopnea or symptoms suggestive of PND. On arrival patient was noted to be in A-fib with rapid ventricular rate and hypoxic. Pulse was in the 130s. Further labs showed leukocytosis with a white count of 11,300, hemoglobin of 15.0. COVID and influenza screen/RSV was negative., chest x-ray shows retrocardiac opacity in the left costophrenic angle. CT chest was negative for pulm embolism but positive for left-sided infiltrate. Patient was given IV Rocephin/Zithromax and started on Cardizem drip and due to persistent tachycardia, given a single dose of IV metoprolol 5 mg. Patient was admitted for further evaluation [facility] Social History household members: friend(s) Smoking Status: Current every day smoker alcohol intake: never Meds Home Medications and Allergies Home Medications Medication Instructions Recorded Confirmed Type apixaban 5 mg tablet (Eliquis) 5 mg PO BID blood clot 02/21/23 06/02/23 History buspirone 7.5 mg tablet 7.5 mg PO BID 02/21/23 06/02/23 History diltiazem HCl 30 mg tablet 30 mg PO BID 02/21/23 06/02/23 History epinephrine 0.3 mg/0.3 mL 0.3 ml IM PRN PRN Allergic Reaction 02/21/23 06/02/23 History injection, auto-injector insulin glargine 100 unit/mL (3 20 unit SUBCUT ONCE PM 02/21/23 06/02/23 History mL) subcutaneous pen losartan 25 mg tablet 25 mg PO DAILY 02/21/23 06/02/23 History metoprolol tartrate 100 mg tablet 100 mg PO DAILY 02/21/23 06/02/23 History nitrofurantoin macrocrystal 100 mg 100 mg PO BID infectious disease 02/21/23 06/02/23 History capsule omeprazole 20 mg capsule,delayed 20 mg PO QAM 02/21/23 06/02/23 History release Allergies Allergy/AdvReac Type Severity Reaction Status Date / Time diphenhydramine Allergy Unknown ITCHING Verified 06/02/23 16:36 [From BENADRYL] Review of Systems Review of Systems Narrative: A 12 point review of system is negative unless otherwise stated in history of present illness Exam Vital Signs (past 8 hours): - 06/02/23 16:33 06/02/23 16:41 06/02/23 16:42 Temperature 97.8 F Pulse Rate 82 136 H 80 Respiratory Rate 18 Blood Pressure 165/78 H Pulse Oximetry 94 91 93 Oxygen Delivery Method Room Air Oxygen Flow Rate Fraction of Inspired Oxygen 06/02/23 16:42 06/02/23 16:45 06/02/23 16:50 Temperature Pulse Rate 170 H 175 H Respiratory Rate 27 H 26 H Blood Pressure 153/99 H Pulse Oximetry 94 95 Oxygen Delivery Method Room Air Oxygen Flow Rate Fraction of Inspired Oxygen 06/02/23 16:55 06/02/23 17:00 06/02/23 17:00 Temperature Pulse Rate 136 H 119 H Respiratory Rate 22 23 Blood Pressure 148/84 H Pulse Oximetry 93 92 Oxygen Delivery Method Oxygen Flow Rate Fraction of Inspired Oxygen 06/02/23 17:05 06/02/23 17:10 06/02/23 17:15 Temperature Pulse Rate 122 H 121 H 123 H Respiratory Rate 23 24 24 Blood Pressure Pulse Oximetry 91 91 92 Oxygen Delivery Method Oxygen Flow Rate Fraction of Inspired Oxygen 06/02/23 17:20 06/02/23 17:25 06/02/23 17:30 Temperature Pulse Rate 131 H 134 H 133 H Respiratory Rate 24 24 25 H Blood Pressure Pulse Oximetry 92 92 92 Oxygen Delivery Method Oxygen Flow Rate Fraction of Inspired Oxygen 06/02/23 17:31 06/02/23 17:31 06/02/23 17:35 Temperature Pulse Rate 136 H 137 H Respiratory Rate 22 26 H Blood Pressure 182/83 H Pulse Oximetry 91 91 Oxygen Delivery Method Oxygen Flow Rate Fraction of Inspired Oxygen 06/02/23 17:40 06/02/23 17:45 06/02/23 17:50 Temperature Pulse Rate 135 H 132 H 128 H Respiratory Rate 25 H 26 H 24 Blood Pressure Pulse Oximetry 91 91 95 Oxygen Delivery Method Oxygen Flow Rate Fraction of Inspired Oxygen 06/02/23 17:55 06/02/23 18:00 06/02/23 18:00 Temperature Pulse Rate 126 H 121 H Respiratory Rate 25 H 24 Blood Pressure 168/88 H Pulse Oximetry 94 94 Oxygen Delivery Method Oxygen Flow Rate Fraction of Inspired Oxygen 06/02/23 18:05 06/02/23 18:10 06/02/23 18:35 Temperature Pulse Rate 123 H 117 H 119 H Respiratory Rate 23 23 24 Blood Pressure Pulse Oximetry 94 95 96 Oxygen Delivery Method Oxygen Flow Rate Fraction of Inspired Oxygen 06/02/23 18:36 06/02/23 18:36 06/02/23 18:40 Temperature Pulse Rate 112 H 119 H Respiratory Rate 23 25 H Blood Pressure 159/82 H Pulse Oximetry 96 93 Oxygen Delivery Method Oxygen Flow Rate Fraction of Inspired Oxygen 06/02/23 18:45 06/02/23 18:50 06/02/23 18:55 Temperature Pulse Rate 117 H 109 H 107 H Respiratory Rate 23 23 22 Blood Pressure Pulse Oximetry 93 95 96 Oxygen Delivery Method Nasal Cannula Oxygen Flow Rate 2 Fraction of Inspired Oxygen 06/02/23 19:00 06/02/23 19:00 06/02/23 19:05 Temperature Pulse Rate 115 H 113 H Respiratory Rate 21 22 Blood Pressure 160/93 H Pulse Oximetry 97 94 Oxygen Delivery Method Oxygen Flow Rate Fraction of Inspired Oxygen 06/02/23 19:10 06/02/23 19:15 06/02/23 19:15 Temperature Pulse Rate 117 H 120 H Respiratory Rate 23 23 Blood Pressure 135/77 Pulse Oximetry 94 94 Oxygen Delivery Method Nasal Cannula Oxygen Flow Rate 4 Fraction of Inspired Oxygen 06/02/23 19:20 06/02/23 19:25 06/02/23 19:30 Temperature Pulse Rate 119 H 123 H 115 H Respiratory Rate 24 24 24 Blood Pressure Pulse Oximetry 94 95 92 Oxygen Delivery Method Oxygen Flow Rate Fraction of Inspired Oxygen 06/02/23 19:30 06/02/23 19:35 06/02/23 19:40 Temperature Pulse Rate 108 H 110 H Respiratory Rate 23 23 Blood Pressure 141/83 H Pulse Oximetry 92 93 Oxygen Delivery Method Oxygen Flow Rate Fraction of Inspired Oxygen 06/02/23 19:45 06/02/23 19:45 06/02/23 19:50 Temperature Pulse Rate 91 H 76 Respiratory Rate 24 23 Blood Pressure 131/72 Pulse Oximetry 96 95 Oxygen Delivery Method Oxygen Flow Rate Fraction of Inspired Oxygen 06/02/23 19:55 06/02/23 20:00 06/02/23 20:00 Temperature Pulse Rate 76 77 Respiratory Rate 22 21 Blood Pressure 131/79 Pulse Oximetry 94 95 Oxygen Delivery Method Oxygen Flow Rate Fraction of Inspired Oxygen 06/02/23 20:05 06/02/23 20:10 06/02/23 20:15 Temperature Pulse Rate 77 77 79 Respiratory Rate 22 21 23 Blood Pressure Pulse Oximetry 95 96 97 Oxygen Delivery Method Oxygen Flow Rate Fraction of Inspired Oxygen 06/02/23 20:15 06/02/23 20:20 06/02/23 20:25 Temperature Pulse Rate 77 78 Respiratory Rate 24 26 H Blood Pressure 119/71 Pulse Oximetry 96 96 Oxygen Delivery Method Oxygen Flow Rate Fraction of Inspired Oxygen 06/02/23 20:30 06/02/23 20:30 06/02/23 20:35 Temperature 98.4 F Pulse Rate 78 80 Respiratory Rate 23 26 H Blood Pressure 117/71 Pulse Oximetry 96 97 Oxygen Delivery Method Oxygen Flow Rate Fraction of Inspired Oxygen 06/02/23 20:40 06/02/23 22:14 06/02/23 22:18 Temperature 97.5 F L Pulse Rate 79 81 89 Respiratory Rate 25 H 22 Blood Pressure 142/73 H Pulse Oximetry 97 97 100 Oxygen Delivery Method Nasal Cannula Oxygen Flow Rate 4 4 Fraction of Inspired Oxygen 36 06/02/23 23:19 Temperature Pulse Rate 87 Respiratory Rate Blood Pressure 129/67 Pulse Oximetry Oxygen Delivery Method Oxygen Flow Rate Fraction of Inspired Oxygen Fraction of Inspired Oxygen 36 SaO2/FiO2 Ratio 269 Oxygen Delivery Method Nasal Cannula Oxygen Flow Rate 4 Narrative Exam Narrative: Patient appears to be short of breath. Heart rate is regular the lungs lungs are diminished Objective Labs 06/02/23 16:53 06/02/23 16:53 Labs: Laboratory Results - last 24 hr 06/02/23 06/02/23 06/02/23 16:46 16:53 17:30 WBC 11.3 H RBC 5.78 H Hgb 15.0 Hct 47.0 H MCV 81.4 MCH 26.0 MCHC 31.9 RDW 16.5 H Plt Count 234 Neut % (Auto) 80.4 H Lymph % (Auto) 8.2 L [place] % (Auto) 8.4 Eos % (Auto) 2.4 Baso % (Auto) 0.6 Neut # (Auto) 9100 H Lymph # (Auto) 900 L [place] # (Auto) 900 Eos # (Auto) 300 Baso # (Auto) 100 PT 12.5 INR 1.1 APTT 32 Sodium 134 L Potassium 4.5 Chloride 99 Carbon Dioxide 23 BUN 29 H Creatinine 0.94 Estimated GFR > 60 BUN/Creatinine Ratio 30.9 H Glucose 141 H Calcium 9.3 Magnesium 1.9 Total Bilirubin 1.0 AST 32 ALT 26 Alkaline Phosphatase 141 H Total Creatine Kinase 150 H Troponin I 0.255 H* NT-Pro-B Natriuret Pep Total Protein 7.9 Albumin 4.5 Globulin 3.4 Albumin/Globulin Ratio 1.3 Lipase 63 SARS-CoV-2 (PCR) Negative Influenza A (RT-PCR) Flu a negative Influenza B (RT-PCR) Flu b negative RSV (PCR) Negative 06/02/23 19:02 WBC RBC Hgb Hct MCV MCH MCHC RDW Plt Count Neut % (Auto) Lymph % (Auto) [place] % (Auto) Eos % (Auto) Baso % (Auto) Neut # (Auto) Lymph # (Auto) [place] # (Auto) Eos # (Auto) Baso # (Auto) PT INR APTT Sodium Potassium Chloride Carbon Dioxide BUN Creatinine Estimated GFR BUN/Creatinine Ratio Glucose Calcium Magnesium Total Bilirubin AST ALT Alkaline Phosphatase Total Creatine Kinase Troponin I 0.359 H* NT-Pro-B Natriuret Pep 3760 H Total Protein Albumin Globulin Albumin/Globulin Ratio Lipase SARS-CoV-2 (PCR) Influenza A (RT-PCR) Influenza B (RT-PCR) RSV (PCR) Assessment & Plan Assessment & Plan narrative: 63 years old female with a past medical history of hypertension, diabetes, chronic smoker, previous hospitalization for pyelonephritis/hematuria, atrial fibrillation, nocturnal hypoxia and multiple other medical issues presented to the emergency room with worsening shortness of breath with cough that is productive with whitish mucoid and yellow sputum intermittently and palpitations. Denies any chest pain dizziness or loss of consciousness. Denies any fever episodes. Does have shortness of breath worse with exertion. Denies any orthopnea or symptoms suggestive of PND. On arrival patient was noted to be in A-fib with rapid ventricular rate and hypoxic. Pulse was in the 130s. Further labs showed leukocytosis with a white count of 11,300, hemoglobin of 15.0. COVID and influenza screen/RSV was negative., chest x-ray shows retrocardiac opacity in the left costophrenic angle. CT chest was negative for pulm embolism but positive for left-sided infiltrate. Patient was given IV Rocephin/Zithromax and started on Cardizem drip and due to persistent tachycardia, given a single dose of IV metoprolol 5 mg. Patient was admitted for further evaluation 1. Acute hypoxemia with palpitations in a patient with a chronic smoker and likely has COPD. Oxygen supplementation with nebulizers and treat underlying infection/pneumonia while monitoring closely. O2 saturation target is 89 to 90% 2 Pneumonia community-acquired. Pending culture and sensitivity, continue the IV Rocephin/oral Zithromax for now with nebulizers and oxygen supplementation 3 Atrial fibrillation paroxysmal. Initially on presentation was tachycardic with a rate in the 130s but following administration of Cardizem infusion/IV metoprolol, patient has now switched to sinus. Monitoring telemetry. Resume the home Cardizem/metoprolol and Eliquis. Does have a history of hematuria and monitor closely 4 Diabetes mellitus type 2 per resume the home medications and watch the blood sugar ACHS with insulin sliding scale 5 Hypertension resume the home Cardizem/metoprolol and watch blood pressure closely 6 Chronic smoker with likely hypoxemia/COPD. Advised to quit smoking. Initiate nicotine patch 7 DVT prophylaxis will be on Eliquis Goals of care reviewed and patient is requested full code at this time Patient will be admitted under inpatient status. Given the acute hypoxemic respiratory failure in the setting of pneumonia/atrial fibrillation with rapid ventricular rate needing IV Cardizem drip initially and subsequently now IV antibiotics, patient meets criteria for inpatient with expected length of stay greater than 2 midnights Patient was evaluated with the help of video communication device. Time spent is 15 minutes. The location of the provider is [facility] Deep Vein Thrombosis/Pulmonary Embolism Present on Admission: No
[2023-06-03] VITALS (104 sets, daily range): BP systolic 126–183; BP diastolic 65–102; PULSE 67–104; RESP 13–43; TEMP 36.1–37.2; O2SAT 86–98
[2023-06-03 04:07] LABS: Add Manual Diff / Slide Review NO; Basophils Absolute Auto 100 /uL (0-100); Basophils Percent Auto 0.8 % (0-2); Eosinophils Absolute Auto 400 /uL (0-450); Eosinophils Percent Auto 5.5 % (2-4); Hematocrit 38.1 % (36-46); Hemoglobin 12.3 g/dL (12.0-16.0); Lymphocytes Absolute Auto 800 /uL (1100-4500); Lymphocytes Percent Auto 10.8 % (25-40); Mean Corpuscular HGB Conc 32.4 % (30-36); Mean Corpuscular Hemoglobin 26.3 PG (26-34); Mean Corpuscular Volume 81.2 fL (80-100); Monocytes Absolute Auto 800 /uL (0-900); Monocytes Percent Auto 10.7 % (3-14); Neutrophils Absolute Auto 5200 /uL (1500-7000); Neutrophils Percent Auto 72.2 % (50-75); Platelet Count 208 X10^3/uL (150-400); Red Cell Distribution Width 16.4 % (11.6-14.8); White Blood Cell Count 7.2 X10^3/uL (4.5-11.0)
[2023-06-03 04:18] LABS: INR 1.3 (0.9-1.3); Prothrombin Time 15.3 SECONDS (9.4-12.5)
[2023-06-03 04:24] LABS: Alanine Aminotransferase 22 IU/L (<35); Albumin 3.7 g/dL (3.5-5.0); Albumin Globulin Ratio 1.2 (1.0-2.8); Alkaline Phosphatase 110 U/L (38-126); Aspartate Aminotransferase 28 IU/L (14-36); BUN Creatinine Ratio 27.8 (6-22); Bilirubin Total 0.6 mg/dL (0.2-1.3); Blood Urea Nitrogen 27 mg/dL (7-17); Calcium 8.7 mg/dL (8.4-10.2); Carbon Dioxide 27 mmol/L (22-32); Chloride 101 mmol/L (98-107); Estimated Glomerular Filt Rate > 60 mL/min (>60); Glucose 96 mg/dL (80-110); HEMOLYSIS < 15 (0-50); Potassium 3.7 mmol/L (3.4-5.1); Sodium 135 mmol/L (137-145); Total Protein 6.7 g/dL (6.3-8.2)
[2023-06-03] MEDS: dilTIAZem 30 MG TABLET PO ×4 (05:27→23:26)
[2023-06-03] MEDS: ALBUTEROL/IPRATROPIUM 3 ML AMPUL INH (06:47)
[2023-06-03] MEDS: INSULIN LISPRO 100 UNIT/ML 3ML VIAL SUBCUT ×3 (08:06→20:47)
[2023-06-03] MEDS: APIXABAN 5 MG TABLET PO ×2 (08:07→20:11)
[2023-06-03] MEDS: BUSPIRONE 5 MG TABLET 7.5 MG PO ×2 (08:07→20:11)
[2023-06-03] MEDS: PANTOPRAZOLE DR 20 MG TABLET PO (08:07)
[2023-06-03] MEDS: METOPROLOL IR 50 MG TABLET 100 MG PO (08:07)
--- NOTE | 2023-06-03 08:37 | P.PN_ITS ---
Subjective Subjective Interval history: He was admitted for COPD exacerbation and pneumonia. He smokes about 6-8 cigarettes a day for many years. He notes that he has a cough but nothing is coming up. He feels weak, and about the same as yesterday. No chest pain. Exam Vital Signs (past 8 hours): - 06/03/23 00:40 06/03/23 00:45 06/03/23 00:50 Temperature Pulse Rate 89 86 85 Respiratory Rate 25 H 24 22 Blood Pressure Pulse Oximetry 96 95 95 Oxygen Delivery Method Oxygen Flow Rate Fraction of Inspired Oxygen 06/03/23 00:55 06/03/23 01:00 06/03/23 01:05 Temperature Pulse Rate 84 83 80 Respiratory Rate 21 25 H 19 Blood Pressure Pulse Oximetry 89 L 96 96 Oxygen Delivery Method Oxygen Flow Rate 4 Fraction of Inspired Oxygen 06/03/23 01:10 06/03/23 01:15 06/03/23 01:20 Temperature Pulse Rate 92 H 85 84 Respiratory Rate 23 21 17 Blood Pressure Pulse Oximetry 97 96 94 Oxygen Delivery Method Oxygen Flow Rate Fraction of Inspired Oxygen 06/03/23 01:25 06/03/23 01:30 06/03/23 01:35 Temperature Pulse Rate 86 81 91 H Respiratory Rate 18 17 23 Blood Pressure Pulse Oximetry 93 95 92 Oxygen Delivery Method Oxygen Flow Rate Fraction of Inspired Oxygen 06/03/23 01:40 06/03/23 01:45 06/03/23 01:50 Temperature Pulse Rate 81 89 95 H Respiratory Rate 19 19 31 H Blood Pressure Pulse Oximetry 95 92 93 Oxygen Delivery Method Oxygen Flow Rate Fraction of Inspired Oxygen 06/03/23 01:55 06/03/23 02:00 06/03/23 02:05 Temperature Pulse Rate 99 H 85 96 H Respiratory Rate 20 17 26 H Blood Pressure Pulse Oximetry 91 90 L 86 L Oxygen Delivery Method Oxygen Flow Rate 4 Fraction of Inspired Oxygen 06/03/23 02:10 06/03/23 02:12 06/03/23 02:15 Temperature Pulse Rate 86 81 Respiratory Rate 25 H 20 Blood Pressure Pulse Oximetry 94 93 93 Oxygen Delivery Method Nasal Cannula Oxygen Flow Rate 4 Fraction of Inspired Oxygen 06/03/23 02:25 06/03/23 02:30 06/03/23 02:35 Temperature Pulse Rate 84 83 84 Respiratory Rate 19 18 23 Blood Pressure Pulse Oximetry 92 92 94 Oxygen Delivery Method Oxygen Flow Rate Fraction of Inspired Oxygen 06/03/23 02:40 06/03/23 02:45 06/03/23 02:50 Temperature Pulse Rate 91 H 79 80 Respiratory Rate 38 H 18 18 Blood Pressure Pulse Oximetry 94 92 90 L Oxygen Delivery Method Oxygen Flow Rate Fraction of Inspired Oxygen 06/03/23 02:55 06/03/23 03:00 06/03/23 03:05 Temperature Pulse Rate 79 80 82 Respiratory Rate 19 18 17 Blood Pressure Pulse Oximetry 93 93 92 Oxygen Delivery Method Oxygen Flow Rate 4 Fraction of Inspired Oxygen 06/03/23 03:10 06/03/23 03:15 06/03/23 03:20 Temperature Pulse Rate 84 83 85 Respiratory Rate 17 17 18 Blood Pressure Pulse Oximetry 93 93 93 Oxygen Delivery Method Oxygen Flow Rate Fraction of Inspired Oxygen 06/03/23 03:25 06/03/23 03:30 06/03/23 03:35 Temperature Pulse Rate 85 85 83 Respiratory Rate 18 18 17 Blood Pressure Pulse Oximetry 94 91 93 Oxygen Delivery Method Oxygen Flow Rate Fraction of Inspired Oxygen 06/03/23 03:40 06/03/23 03:45 06/03/23 03:50 Temperature Pulse Rate 81 88 87 Respiratory Rate 17 28 H 20 Blood Pressure Pulse Oximetry 91 96 94 Oxygen Delivery Method Oxygen Flow Rate Fraction of Inspired Oxygen 06/03/23 03:55 06/03/23 04:00 06/03/23 04:00 Temperature Pulse Rate 78 84 Respiratory Rate 18 22 Blood Pressure 179/102 H Pulse Oximetry 91 93 Oxygen Delivery Method Oxygen Flow Rate Fraction of Inspired Oxygen 06/03/23 04:05 06/03/23 04:05 06/03/23 04:20 Temperature 97.2 F L Pulse Rate 81 80 Respiratory Rate 18 19 Blood Pressure 170/78 H Pulse Oximetry 94 92 Oxygen Delivery Method Oxygen Flow Rate Fraction of Inspired Oxygen 06/03/23 04:21 06/03/23 04:21 06/03/23 04:30 Temperature Pulse Rate 80 81 Respiratory Rate 17 18 Blood Pressure 165/78 H Pulse Oximetry 92 91 Oxygen Delivery Method Oxygen Flow Rate Fraction of Inspired Oxygen 06/03/23 04:38 06/03/23 04:38 06/03/23 05:00 Temperature Pulse Rate 81 93 H Respiratory Rate 19 19 Blood Pressure 157/74 H Pulse Oximetry 91 93 Oxygen Delivery Method Oxygen Flow Rate Fraction of Inspired Oxygen 06/03/23 05:04 06/03/23 05:04 06/03/23 05:27 Temperature Pulse Rate 83 83 Respiratory Rate 20 Blood Pressure 167/78 H 167/78 H Pulse Oximetry Oxygen Delivery Method Oxygen Flow Rate Fraction of Inspired Oxygen 06/03/23 05:30 06/03/23 06:00 06/03/23 06:00 Temperature 97.4 F L Pulse Rate 80 91 H Respiratory Rate 21 22 Blood Pressure 147/75 H Pulse Oximetry 97 92 92 Oxygen Delivery Method Nasal Cannula Oxygen Flow Rate 4 4 Fraction of Inspired Oxygen 06/03/23 06:00 06/03/23 06:13 06/03/23 06:13 Temperature Pulse Rate 92 H 87 Respiratory Rate 22 22 Blood Pressure 147/75 H Pulse Oximetry 90 L 90 L Oxygen Delivery Method Oxygen Flow Rate Fraction of Inspired Oxygen 06/03/23 06:30 06/03/23 06:47 06/03/23 07:00 Temperature Pulse Rate 90 96 H 89 Respiratory Rate 23 24 19 Blood Pressure Pulse Oximetry 90 L 95 92 Oxygen Delivery Method Nasal Cannula Humidification Oxygen Flow Rate 4 Fraction of Inspired Oxygen 36 06/03/23 07:30 06/03/23 08:00 06/03/23 08:00 Temperature 98.9 F Pulse Rate 96 H 96 H Respiratory Rate 23 20 Blood Pressure 134/67 Pulse Oximetry 92 93 Oxygen Delivery Method Oxygen Flow Rate Fraction of Inspired Oxygen Fraction of Inspired Oxygen 36 SaO2/FiO2 Ratio 263 Oxygen Delivery Method Nasal Cannula,Humidification Oxygen Flow Rate 4 Narrative Exam Narrative: No acute distress, nontoxic. Neck is supple, normal JVP, no adenopathy. Lungs are notable for diminished breath sounds and expiratory wheezing in all lung rocha. He is normal rate and effort. Heart is regular, without murmur. Abdomen is flat and nontender. Extremities are free of edema. Objective Imaging CT scan - chest: Radiologist's impression: MPRESSION: No pulmonary embolus. Consolidative opacity is present within the left base. While this could represent focus of compressive atelectasis, pneumonia should be considered, given borderline appearance of mediastinal lymph nodes possibly reactive in nature. Recommend short interval imaging follow-up to document resolution and exclude presence of underlying mass lesion. Labs 06/03/23 03:50 06/03/23 03:50 Labs: Laboratory Results - last 24 hr 06/02/23 06/02/23 06/02/23 16:46 16:53 17:30 WBC 11.3 H RBC 5.78 H Hgb 15.0 Hct 47.0 H MCV 81.4 MCH 26.0 MCHC 31.9 RDW 16.5 H Plt Count 234 Neut % (Auto) 80.4 H Lymph % (Auto) 8.2 L [place] % (Auto) 8.4 Eos % (Auto) 2.4 Baso % (Auto) 0.6 Neut # (Auto) 9100 H Lymph # (Auto) 900 L [place] # (Auto) 900 Eos # (Auto) 300 Baso # (Auto) 100 PT 12.5 INR 1.1 APTT 32 Sodium 134 L Potassium 4.5 Chloride 99 Carbon Dioxide 23 BUN 29 H Creatinine 0.94 Estimated GFR > 60 BUN/Creatinine Ratio 30.9 H Glucose 141 H Calcium 9.3 Phosphorus Magnesium 1.9 Total Bilirubin 1.0 AST 32 ALT 26 Alkaline Phosphatase 141 H Total Creatine Kinase 150 H Troponin I 0.255 H* NT-Pro-B Natriuret Pep Total Protein 7.9 Albumin 4.5 Globulin 3.4 Albumin/Globulin Ratio 1.3 Lipase 63 SARS-CoV-2 (PCR) Negative Influenza A (RT-PCR) Flu a negative Influenza B (RT-PCR) Flu b negative RSV (PCR) Negative 06/02/23 06/03/23 19:02 03:50 WBC 7.2 RBC 4.70 Hgb 12.3 Hct 38.1 MCV 81.2 MCH 26.3 MCHC 32.4 RDW 16.4 H Plt Count 208 Neut % (Auto) 72.2 Lymph % (Auto) 10.8 L [place] % (Auto) 10.7 Eos % (Auto) 5.5 H Baso % (Auto) 0.8 Neut # (Auto) 5200 Lymph # (Auto) 800 L [place] # (Auto) 800 Eos # (Auto) 400 Baso # (Auto) 100 PT 15.3 H INR 1.3 APTT Sodium 135 L Potassium 3.7 Chloride 101 Carbon Dioxide 27 BUN 27 H Creatinine 0.97 Estimated GFR > 60 BUN/Creatinine Ratio 27.8 H Glucose 96 Calcium 8.7 Phosphorus 5.0 H Magnesium 2.0 Total Bilirubin 0.6 AST 28 ALT 22 Alkaline Phosphatase 110 Total Creatine Kinase Troponin I 0.359 H* NT-Pro-B Natriuret Pep 3760 H Total Protein 6.7 Albumin 3.7 Globulin 3.0 Albumin/Globulin Ratio 1.2 Lipase SARS-CoV-2 (PCR) Influenza A (RT-PCR) Influenza B (RT-PCR) RSV (PCR) [facility] Social History household members: friend(s) Smoking Status: Current every day smoker alcohol intake: never Assessment & Plan Assessment & Plan narrative: 1. Acute hypoxemia respiratory failure, present on admission and active. Oxygen supplementation with nebulizers and treat underlying infection/pneumonia while monitoring closely. O2 saturation target is 89 to 90% 2 Pneumonia, community-acquired. Present on admission and active. Pending culture and sensitivity, continue the IV Rocephin/oral Zithromax for now with nebulizers and oxygen supplementation 3. COPD exacerbation, present on admission and active. 4. Elevated troponin, demand ischemia. Present on admission and active. He has no known history of CAD. 4. Atrial fibrillation, paroxysmal, with RVR. Present on admission and active. Initially on presentation was tachycardic with a rate in the 130s but following administration of Cardizem infusion/IV metoprolol, patient has now switched to sinus. Monitoring telemetry. Resume the home Cardizem/metoprolol and Eliquis. Does have a history of hematuria and monitor closely 5. Diabetes mellitus type 2, present on admission and active. Resume the home medications and watch the blood sugar ACHS with insulin sliding scale 6. Hypertension. Present on admission and active. Resume the home Cardizem/metoprolol and watch blood pressure closely 7. Tobacco dependence, present on admission and active. Advised to quit smoking. Initiate nicotine patch - DVT prophylaxis will be on Eliquis Plan: -we will continue antibiotics, bronchodilators and steroids. -we will trend troponin, and obtain a 2D echo. -continue rate control measures. Goals of care reviewed and patient is requested full code at this time Patient will be admitted under inpatient status. Given the acute hypoxemic respiratory failure in the setting of pneumonia/atrial fibrillation with rapid ventricular rate needing IV Cardizem drip initially and subsequently now IV antibiotics, patient meets criteria for inpatient with expected length of stay greater than 2 midnights Quality VTE Deep Vein Thrombosis/Pulmonary Embolism Present on Admission: No
--- NOTE | 2023-06-03 08:46 | DI.ECHO.S_ITS ---
[facility]---------+ [facility] +---------+ : : [address] : : : : [id number] : : : : Phone: [phone]+ Echocardiogram Report + + :Name: JOSELINE HUGHES Study Date: 06/03/2023 Height: 64 in : :[facility] ReadingLocation: Weight: 147 lb : : Gender: Female BSA: 1.7 m2 : :: 1960 Age: 63 yrs BP: 134/77 mmHg: :Reason For Study: Elevated Troponin : : Performed By: Trudy Hennessy : :Referring: TARA RUIZ L : + + Interpretation Summary 1) Normal left ventricular size and thickness with mildly to moderately reduced systolic function (EF 40-45%). 2) Normal right ventricular size with moderately reduced function. 3) No significant valvular abnormalities. 4) There is a small to moderate pericardial effusion noted. 5) The right ventricular systolic pressure is estimated to be at least 48 mmHg based on an estimated right atrial pressure of 8 mm Hg. 6) No prior Echo available for comparison. Procedure: A two-dimensional transthoracic echocardiogram with color flow and Doppler was performed. The study quality was technically adequate. There is no prior echocardiogram noted for this patient. The patient was in sinus rhythm with heart rates between 80-81 bpm during the exam. Left Ventricle: The left ventricle is normal in size and wall thickness. The ejection fraction is estimated to be 40-45%. The interventricular septum is flattened, consistent with a right ventricular pressure/volume condition. Diastolic parameters suggest a restrictive filling pattern consistent with probable significantly elevated filling pressures. Right Ventricle: The right ventricle is normal size. Right ventricular systolic function is moderately reduced. Atria: The left atrium is severely dilated. Right atrial size is normal. The interatrial septum grossly appears intact with no obvious evidence for an atrial septal defect. Mitral Valve: The mitral valve leaflets appear moderately thickened, but open well. There is mild calcification extending into the subvalvular apparatus. The mitral valve mean gradient is 2 mmHg. There is mild mitral regurgitation. Aortic Valve: The aortic valve is trileaflet. There is moderately reduced leaflet mobility. The aortic valve area is 1.9 centimeters squared by planimetry. The calculated aortic valve area is 1.0 cm2. No aortic regurgitation is present. Tricuspid Valve: The tricuspid valve leaflets are thin and pliable. The tricuspid valve leaflets are thickened and/or calcified, but open well. There is trace tricuspid regurgitation. The right ventricular systolic pressure is estimated to be at least 48 mmHg based on an estimated right atrial pressure of 8 mm Hg. Pulmonic Valve: The pulmonic valve is not well seen, but is grossly normal. There is a trace or physiologic amount of pulmonic regurgitation. Great Vessels: The aortic root is normal size. The ascending aorta is normal in size. The aortic arch is normal in size. The IVC is dilated (diameter is greater than 2.1 cm) yet it collapses greater than 50% with a sniff. This suggests a right atrial pressure of 8 mm Hg. Pericardium/ Pleura There is a small to moderate pericardial effusion noted. There is no pleural effusion. MMode/2D Measurements & Calculations LVIDd: 5.5 cm LVOT diam: 1.8 cm LVIDs: 3.3 cm Ao root diam: 3.0 cm FS: 39.4 % asc Aorta Diam: 3.2 cm EPSS: 0.99 cm Ao Arch Diam (Prox Trans): 2.9 cm IVSd: 1.1 cm LVPWd: 0.92 cm LV hernandez. diameter/BSA (cm/m^2): 3.2 LV sys. diameter/BSA (cm/m^2): 1.9 LA A2 area: 31.2 cm2 RA long axis: 5.7 cm LA A4 area: 31.5 cm2 RA area: 17.9 cm2 LA length (vol): 6.9 cm RA vol: 48.1 ml LA vol: 121.4 ml RA : 28.0 ml/m2 LA vol index: 70.7 ml/m2 IVC diam: 2.0 cm RVD1 (basal): 2.7 cm TAPSE: 1.5 cm Doppler Measurements & Calculations Ao V2 max: 183.9 cm/sec LVOT Max Augustine: 72.2 cm/sec Ao V2 mean: 120.2 cm/sec LV V1 max P.1 mmHg Ao max P.5 mmHg LV V1 VTI: 12.3 cm Ao mean P.7 mmHg DARREN(I,D): 0.89 cm2 Ao V2 VTI: 35.3 cm DARREN(V,D): 1.00 cm2 sev ratio: 0.35 DARREN indexed to BSA (cm^2/m^2): 0.52 MV E max augustine: 103.7 cm/sec TR max augustine: 316.9 cm/sec MV A max augustine: 75.9 cm/sec TR max P.3 mmHg MV E/A: 1.4 PA V2 max: 81.6 cm/sec Med Peak E' Augustine: 3.6 cm/sec PA V2 mean: 48.5 cm/sec E/E' med: 29.1 PA mean P.2 mmHg Lat Peak E' Augustine: 6.3 cm/sec PA pr(Accel): 39.6 mmHg E/E' lat: 16.3 E/e' average: 22.7 MV dec time: 0.25 sec SV(LVOT): 31.4 ml Reading Physician:03:06 PM
[2023-06-03] MEDS: guaiFENesin ER 600 MG TAB PO ×2 (09:00→20:11)
[2023-06-03 11:54] LABS: Troponin I 0.434 ng/mL (0.01-0.034)
--- NOTE | 2023-06-03 12:55 | CM.DANOTE ---
Initial DCP Assessment Note Reviewed EMR and team rounds for pt's medical status and initial anticipated d/c needs. Met with pt at bedside to introduce self and role, she was found to be grimacing in bed, oriented, but appearing tired. Pt resides in her own home with her son in [place]. Payor: Medicare PCP: U/K Pt is a 63 year-old F who presented to the ED last evening with complaints of several weeks of increasing shortness of breath, worsening cough, dehydration, and intermittent heart palpitations. She has a hx of Afib, has not been taking her medications for a few days due to not feeling well. She remained tachycardic and was in Afib in the ED despite having been started on a diltiazem drip. Decision was made to treat as pneumonia, was started on IV ABO's and admitted for further tx/eval/monitoring. DCP will continue to follow and assist with evolving d/c home recommendations. Discharge Planning/Care Management CM Discharge Assessment Start: 06/03/23 12:51 Freq: Status: Active Protocol: Document 06/03/23 12:53 DPL (Rec: 06/03/23 12:55 DPL [id number]) Discharge Planning Assessment Assigned Toll Operator JUAN Mckeon Advance Directives? No History Provided By Patient,Medical Record Has Patient been admitted in last 30 No days? Prior Living Arrangements House Household Members family,friend(s) Type of transporation used prior to Drives own vehicle admit Independent with ADL's Yes Is patient alert and oriented? Yes Caregiver for Another No Comment No anticipated d/c indicated at this time. Barriers to Discharge No Comment patient will be here a few days for IV antibiotics Discharge Plan Home Transportation Arrangement transport with friends in [place] Referrals Initiated None needed Whiteboard Updated in Patient Room with Yes name and ext. # of Toll Operator Review Status In Process Please Provide Date Initial DC 06/03/23 Assessment Was Performed
[2023-06-03] MEDS: ACETAMINOPHEN 325 MG TABLET 650 MG PO ×2 (16:04→22:30)
[2023-06-03] MEDS: predniSONE 20 MG TABLET 40 MG PO (17:50)
[2023-06-03] MEDS: AZITHROMYCIN 250 MG TABLET PO (20:11)
[2023-06-03] MEDS: cefTRIAXone 1,000 MG in SODIUM CHLORIDE 0.9% 100 ML 200 MG IV (20:11)
[2023-06-03 21:01] LABS: Troponin I 0.409 ng/mL (0.01-0.034)
[2023-06-04] VITALS (55 sets, daily range): BP systolic 141–208; BP diastolic 71–100; PULSE 70–90; RESP 8–44; TEMP 36.4–37.1; O2SAT 85–96
[2023-06-04] MEDS: ALBUTEROL/IPRATROPIUM 3 ML AMPUL INH ×3 (01:32→21:09)
[2023-06-04] MEDS: ACETAMINOPHEN 325 MG TABLET 650 MG PO ×4 (04:52→22:31)
[2023-06-04] MEDS: dilTIAZem 30 MG TABLET PO ×2 (05:18→13:04)
[2023-06-04] MEDS: INSULIN LISPRO 100 UNIT/ML 3ML VIAL SUBCUT ×4 (08:07→21:01)
--- NOTE | 2023-06-04 08:45 | PM.PN.1 ---
Subjective Subjective Interval history: Feels weak and still short of breath. About the same as yesterday. She is constipated. No abdominal pain. She ate breakfast. Exam Vital Signs (past 8 hours): - 06/04/23 01:32 06/04/23 05:09 06/04/23 05:18 Temperature 97.6 F Pulse Rate 75 78 74 Respiratory Rate 24 15 Blood Pressure 157/90 H 157/90 H Pulse Oximetry 94 95 Oxygen Delivery Method Nasal Cannula Humidification Oxygen Flow Rate 4 4 Fraction of Inspired Oxygen 36 06/04/23 08:20 Temperature 97.8 F Pulse Rate 74 Respiratory Rate 20 Blood Pressure 141/71 H Pulse Oximetry 96 Oxygen Delivery Method Oxygen Flow Rate 4 Fraction of Inspired Oxygen Fraction of Inspired Oxygen 36 SaO2/FiO2 Ratio 261 Oxygen Delivery Method Nasal Cannula,Humidification Oxygen Flow Rate 4 Narrative Exam Narrative: NAD, fluent speech. Anxious. Lungs: Clear, still some expiratory wheezes especially in the left side. Heart regular Flat and non-tender abdomen. No leg edema. Objective Imaging Echo: Radiologist's impression: 1) Normal left ventricular size and thickness with mildly to moderately reduced systolic function (EF 40-45%). 2) Normal right ventricular size with moderately reduced function. 3) No significant valvular abnormalities. 4) There is a small to moderate pericardial effusion noted. 5) The right ventricular systolic pressure is estimated to be at least 48 mmHg based on an estimated right atrial pressure of 8 mm Hg. 6) No prior Echo available for compariso Labs 06/03/23 03:50 06/03/23 03:50 Labs: Laboratory Results - last 24 hr 06/03/23 06/03/23 06/03/23 11:22 15:18 20:28 Troponin I 0.434 H* 0.430 H* 0.409 H* PFSH Social History household members: family and friend(s) Smoking Status: Current every day smoker alcohol intake: never Assessment & Plan Assessment & Plan narrative: 1. Acute hypoxemia respiratory failure, present on admission and active. Oxygen supplementation with nebulizers and treat underlying infection/pneumonia while monitoring closely. O2 saturation target is 89 to 90% 2 Pneumonia, community-acquired. Present on admission and active. Continue the IV Rocephin/oral Zithromax for now with nebulizers and oxygen supplementation 3. COPD exacerbation, present on admission and improving. 4. Elevated troponin, demand ischemia. Present on admission and active. She has no known history of CAD. 4. Atrial fibrillation, paroxysmal, with RVR. Present on admission and improved rate control. Initially on presentation was tachycardic with a rate in the 130s but following administration of Cardizem infusion/IV metoprolol, patient has now switched to sinus. Monitoring telemetry. Resume the home Cardizem/metoprolol and Eliquis. Does have a history of hematuria and monitor closely 5. Diabetes mellitus type 2, present on admission and active. Resume the home medications and watch the blood sugar ACHS with insulin sliding scale 6. Hypertension. Present on admission and active. Resume the home Cardizem/metoprolol and watch blood pressure closely 7. Tobacco dependence, present on admission and active. Advised to quit smoking. Initiate nicotine patch - DVT prophylaxis will be on Eliquis Plan: -we will continue antibiotics, bronchodilators and steroids. -we will trend troponin, and obtain a 2D echo. -continue rate control measures. -add MiraLax -add Nicoderm 21 -Out of bed. Quality VTE Deep Vein Thrombosis/Pulmonary Embolism Present on Admission: No
[2023-06-04] MEDS: BUSPIRONE 5 MG TABLET 7.5 MG PO ×2 (09:19→20:26)
[2023-06-04] MEDS: PANTOPRAZOLE DR 20 MG TABLET PO ×2 (09:19→09:22)
[2023-06-04] MEDS: METOPROLOL IR 50 MG TABLET 100 MG PO (09:20)
[2023-06-04] MEDS: guaiFENesin ER 600 MG TAB PO ×2 (09:20→20:27)
[2023-06-04] MEDS: predniSONE 20 MG TABLET 40 MG PO (09:20)
[2023-06-04] MEDS: APIXABAN 5 MG TABLET PO ×2 (09:22→20:27)
[2023-06-04] MEDS: polyethylene glycoL 3350 17 GM POWD.PACK PO (10:58)
[2023-06-04] MEDS: NICOTINE 21 MG PATCH TOP (10:58)
[2023-06-04] MEDS: ISOSORBIDE MONONITRATE ER 30 MG TABLET PO (10:59)
--- NOTE | 2023-06-04 11:18 | PC.NURSE ---
Addendum entered by Jennifer Palacios R.N. 06/04/23 17:23: Patients blood pressure down to 152/72 after Nicotine patch taken off and hydralazine given iv. Patient is in better spirits now and friend is visiting her. Addendum entered by Jennifer Palacios R.N. 06/04/23 14:07: Patients blood pressure has been consistently high for the last couple of hours. All of her oral blood pressure medications were given, and she is at 174/94 with a map of 127. Called and he is going to order patients [facility] ER that she takes at home. Patient is resting and worked some with physical therapy. Original Note: Patient does not feel well this morning. She was just given some tylenol and was up to use the bsc. She has wheezes throughout her lobes, and she is on 4L of oxygen. Sats are in the high 90s. O sob noted. Nicotine patch placed on left shoulder and patient is resting comfortably.
--- NOTE | 2023-06-04 12:26 | CM.DPC ---
DCP Cont. Reviewed EMR and team rounds for pt's status updates. Plan is for pt to start moving with therapies today, if she can tolerate it. She remains on 4LO2, was still not feeling well today. Will continue to monitor for evolving d/c recommendations/needs.
--- NOTE | 2023-06-04 14:15 | PT.IIE ---
Current Diagnoses Pneumonia, unspecified organism (06/02/23) Physical Therapy Inpatient Evaluation/Re-Eval M1 PT/OT-IP Prior Functional Status Start: 06/04/23 12:57 Freq: NEEDED Status: Active Protocol: Document 06/04/23 13:57 MB (Rec: 06/04/23 14:15 MB [id number]) Medical Review Prior Functional Status Medical History Reviewed Yes Diet/Fluid Consistency Regular Communication WNLs Mobility and Gait I Activities of Daily Living and IADL's I Prior Functional Level (Other details) I, drove Social History Household Members friend(s) Living Arrangements House Number of Floors (Floors) One Floor Number of Stairs To Enter/Railing? 2 steps and no rail to enter Home Environment Standard Height Toilet,Tub/ Shower Home Equipment Grab Bars In Shower Employment Status Retired M2 PT-IP Current Condition Start: 06/04/23 12:57 Freq: NEEDED Status: Active Protocol: Document 06/04/23 13:57 MB (Rec: 06/04/23 14:15 MB [id number]) Physical Therapy Current Condition Current Condition Evaluation Date 06/04/23 Treatment Diagnosis ARF, PNA M3 PT-IP Subjective Start: 06/04/23 12:57 Freq: NEEDED Status: Active Protocol: Document 06/04/23 13:57 MB (Rec: 06/04/23 14:15 MB [id number]) Subjective Physical Therapy Visit Type Type Initial Evaluation Visit Start Time 13:57 Visit Stop Time 14:07 Number of OPERATIONS SUPPORT REPRESENTATIVE Visits 0 Physical Therapy Visit Comments Patient Comments I just don't feel good. Therapy Pain Assessment Pain When Pain Assessed At Rest Pain Present Pain Present Denied Pain M4 PT-IP Mobility and Gait Start: 06/04/23 12:57 Freq: NEEDED Status: Active Protocol: Document 06/04/23 13:57 MB (Rec: 06/04/23 14:15 MB [id number]) PT-Transfer Assessment Sit to and From Stand Sit to and from Stand Contact Guard Assistance,1 Person Assistance,Use of Upper Extremities Equipment Transfer Assistive Device None Orthotic/Prosthetic Devices or Brace: No Transfer Ability Level of Assist Contact Guard Assistance Comments Mobility Comments Pt looks uncomfortable in bed. She denies pain. She asks to return to bed after short mobility. Pt with high BP and reported to ns/94, 82. O2 sats on 4L O2 remain in the mid 90s at rest and with mobility. Gait Assessment Gait Gait Assistance Required: Contact Guard Assist Distance (Feet) 2 Able to Maintain Weight Bearing Status Yes During Gait Assistive Devices Assistive Device None Orthotic/Prosthetic Devices or Brace: No Gait Deviations General Gait Pattern Decreased Stride Length, Decreased Feet Clearance Factors Limiting Gait Function Factors Limiting Gait Function Decreased Activity Tolerance, Poor Balance Comments Gait Comments Side stepping up to HOB today PT-Balance Assessment Sitting Balance and Reactions Static Sitting Balance Ability Good Dynamic Sitting Balance Ability Good Standing Balance and Reactions Static Standing Balance Ability Good Dynamic Standing Balance Ability Good M5 PT-IP Objective Assessments Start: 06/04/23 12:57 Freq: NEEDED Status: Active Protocol: Document 06/04/23 13:57 MB (Rec: 06/04/23 14:15 MB [id number]) Orientation Orientation/Cognition Level of Alertness Alert Orientation Name,Age,Birthday,Month,Year, Place,Situation Language Function Ability No Deficits Noted Safety Awareness Understands Safety Issues Memory Description No Deficits Noted Gross Range of Motion Upper Extremity ROM Assessment Within Functional Limits Lower Extremity ROM Assessment Right Impaired Impairments 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 Strength Lower Extremity Strength Assessment Right Impaired Comments Strength Comments No right toes M6 PT-IP Treatment Start: 06/04/23 12:57 Freq: NEEDED Status: Active Protocol: Document 06/04/23 13:57 MB (Rec: 06/04/23 14:15 MB [id number]) Physical Therapy Treatment Education Education Provided Safety M7 PT-IP Assessment and Plan Start: 06/04/23 12:57 Freq: NEEDED Status: Active Protocol: Document 06/04/23 13:57 MB (Rec: 06/04/23 14:15 MB [id number]) PT Summary Assessment and Plan Potential Rehabilitation Potential Fair Status of Condition at Evaluation Evolving Summary Impairments Strength,Balance,Bed Mobility, Transfers,Gait,Activity Tolerance Progress Towards Goals Slow Progress due to Activity Tolerance Assessment Summary Pt is a 63 y/o female adm with ARF and pneumonia. 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 She states she didn't take care of her diabetes when she had COVID. Pt lives with friends who are retired. She is usually I and drives. She likes to go to [facility]. Pt denies pain but states she doesn't feel well today. PT communicates with nsg and BP is high this p.m. She will benefit from PT to improve transfers, gait and balance. Goals Bed Mobility Goal Independent Transfer Goal Independent Gait Goal Independent Gait Distance 100 Other Goals Pt will ascend and descend 2 steps with I. Pt does not use AD at baseline and was very I and so will set goals for no AD and use if needed. Days to Meet Goals 5 Frequency of Treatment Frequency Of Treatment Once a Day Treatment Plan Physical Therapy Treatment Plan Bed Mobility Training,Transfer Training,Gait Training, Therapeutic Exercise,Balance Retraining,Discharge Planning Weight Bearing Status Weight Bearing Status Weight Bear as Tolerated Recommendations To Nursing Amount of Assist Needed 1 Person Assist Discharge Recommendations PT Discharge Recommendations Home with Assistance,Home Health Transportation Needs at Discharge Private Vehicle
[2023-06-04] MEDS: LOSARTAN 25 MG TABLET PO (14:20)
[2023-06-04] MEDS: dilTIAZem CD 120 MG CAP PO (14:20)
[2023-06-04] MEDS: HYDRALAZINE 20 MG/ML VIAL 10 MG IV (16:35)
[2023-06-04] MEDS: cefTRIAXone 1,000 MG in SODIUM CHLORIDE 0.9% 100 ML 200 MG IV (20:26)
[2023-06-04] MEDS: AZITHROMYCIN 250 MG TABLET PO (20:27)
[2023-06-05] VITALS (53 sets, daily range): BP systolic 159–189; BP diastolic 72–95; PULSE 65–87; RESP 12–32; TEMP 36.4–37; O2SAT 86–99
[2023-06-05] MEDS: HYDRALAZINE 20 MG/ML VIAL 10 MG IV ×3 (01:06→20:42)
[2023-06-05] MEDS: HYDROCODONE/ACET 5/325 TABLET 1 TAB PO ×3 (01:06→12:04)
[2023-06-05] MEDS: INSULIN LISPRO 100 UNIT/ML 3ML VIAL SUBCUT ×4 (08:12→20:40)
[2023-06-05] MEDS: APIXABAN 5 MG TABLET PO ×2 (09:51→20:38)
[2023-06-05] MEDS: guaiFENesin ER 600 MG TAB PO ×2 (09:51→20:38)
[2023-06-05] MEDS: ISOSORBIDE MONONITRATE ER 30 MG TABLET PO (09:51)
[2023-06-05] MEDS: BUSPIRONE 5 MG TABLET 7.5 MG PO ×2 (09:51→20:39)
[2023-06-05] MEDS: METOPROLOL IR 50 MG TABLET 100 MG PO (09:51)
[2023-06-05] MEDS: LOSARTAN 25 MG TABLET PO (09:51)
[2023-06-05] MEDS: ASPIRIN EC 81 MG TABLET PO (09:51)
[2023-06-05] MEDS: PANTOPRAZOLE DR 20 MG TABLET PO (09:51)
[2023-06-05] MEDS: predniSONE 20 MG TABLET 40 MG PO (09:51)
--- NOTE | 2023-06-05 10:42 | PM.PN.1 ---
Subjective Subjective Interval history: Breathing feels a little bit better today, still has a cough which is mostly dry. She feels generally poor, meaning week. She denies any pain, and also denies any chest pain. No events overnight were noted. Her vital signs appear to be stable today. Exam Vital Signs (past 8 hours): - 06/05/23 04:00 06/05/23 08:00 06/05/23 08:37 Temperature 98 F 98.2 F Pulse Rate 77 76 Respiratory Rate 18 16 Blood Pressure 161/76 H 183/95 H Pulse Oximetry 93 94 Oxygen Flow Rate 4 0 Fraction of Inspired Oxygen 36 SaO2/FiO2 Ratio 261 Oxygen Delivery Method Nasal Cannula Oxygen Flow Rate 0 Narrative Exam Narrative: NAD, fluent speech, slightly anxious with a flat affect. Neck is supple, no adenopathy. Lungs are notable for 2/4 breath sounds with some expiratory wheezing, better than yesterday. Heart is regular without murmur. Abdomen is flat. Extremities are free of edema. Objective Labs 06/03/23 03:50 06/03/23 03:50 [facility] Social History household members: friend(s) Smoking Status: Current every day smoker alcohol intake: never Assessment & Plan Assessment & Plan narrative: 1. Acute hypoxemia respiratory failure, present on admission and active. O2 saturation target is 89 to 90% 2 Pneumonia, community-acquired. Present on admission and improving. Continue the IV Rocephin/oral Zithromax for now with nebulizers and oxygen supplementation. Short course. 3. COPD exacerbation, present on admission and improving. 4. Elevated troponin, demand ischemia. Present on admission and active. She has no known history of CAD. Echo from June 03 reveals EF of 40-45% with mildly reduced left and right ventricular function and no valve abnormalities. There is a small to moderate pericardial effusion. Right ventricular systolic pressure is noted to be about 48 mmHg. No prior echo. 4. Atrial fibrillation, paroxysmal, with RVR. Present on admission and improved rate control. Initially on presentation was tachycardic with a rate in the 130s but following administration of Cardizem infusion/IV metoprolol, patient has now switched to sinus. Monitoring telemetry. Resume the home Cardizem/metoprolol and Eliquis. Does have a history of hematuria and monitor closely 5. Diabetes mellitus type 2, present on admission and active. Resume the home medications and watch the blood sugar ACHS with insulin sliding scale 6. Hypertension. Present on admission and active. Resume the home Cardizem/metoprolol and watch blood pressure closely. She had very labile pressures on June 04 requiring as needed hydralazine. These appear to be improved today. 7. Tobacco dependence, present on admission and active. Advised to quit smoking. Initiate nicotine patch - DVT prophylaxis: on Eliquis Additional plans: -we will continue antibiotics, short course of 5 days. -we will continue corticosteroids and monitor for improvement of COPD. -out of bed, encourage activity. -patient will require risk stratification study for her depressed EF at some point after recovery from acute medical illness. -we will discuss her echo with Cardiology prior to discharge. -monitor for rate control. Quality VTE Deep Vein Thrombosis/Pulmonary Embolism Present on Admission: No
--- NOTE | 2023-06-05 12:29 | CM.DPNOTE ---
Addendum entered by JUAN Alcaraz 06/05/23 13:23: Giulia from [facility] reports they can accept pt for services. ROYCE Original Note: DCP Note DRESS MARKER reviewed EMR. Per chart review, pt oscillating between room air and 4ltrs O2. Per PT, rec HH vs home with assistance. Per provider, likely here another two days. DRESS MARKER entered room and introduced self and role. Pt confirmed she lives with two roommates and they support her at home. Pt confirms PCP is Shara Asencio in [place]. Pt is interested in HH, preference [facility]. DRESS MARKER completed face to face and HH order. DRESS MARKER lvm with Giulia at [facility] to review pt. CC Ines kindly agreed to email initial referral to Giulia, acceptance pending. DRESS MARKER gave Ines f2f to scan into pt's chart. Pt inquired about Medicaid application. DRESS MARKER gave pt the Medicaid application paperwork and information. Pt tearful during interaction, saying that she just wanted to go home and hated getting old. DRESS MARKER offered emotional support and validation. Plan: likely home with roommates when medically stable, roommates to transport in POV. [facility] acceptance pending for RN/PT/OT. CM team will continue to follow closely. JUAN Alcaraz
--- NOTE | 2023-06-05 12:49 | PC.NURSE ---
Patient given norco for complains of headache. Patient looks better today. She is wheezy and on 4L of oxygen. Up with 1 person assist and walker. Eating at meals. She is resting now.
[2023-06-05] MEDS: ALBUTEROL/IPRATROPIUM 3 ML AMPUL INH (13:01)
--- NOTE | 2023-06-05 15:21 | PT-IP ANOTE ---
Attempted to work with pt twice today but she refused secondary to headache. Will attempt to follow up next service date.
[2023-06-05] MEDS: ACETAMINOPHEN 325 MG TABLET 650 MG PO (17:33)
[2023-06-05] MEDS: AZITHROMYCIN 250 MG TABLET PO (20:38)
[2023-06-05] MEDS: cefTRIAXone 1,000 MG in SODIUM CHLORIDE 0.9% 100 ML 200 MG IV (20:39)
[2023-06-06] VITALS (67 sets, daily range): BP systolic 128–218; BP diastolic 66–103; PULSE 65–101; RESP 11–32; TEMP 36.2–37.2; O2SAT 89–96
[2023-06-06] MEDS: HYDRALAZINE 20 MG/ML VIAL 10 MG IV ×2 (05:57→06:57)
[2023-06-06 07:09] LABS: Hemoglobin 13.5 g/dL (12.0-16.0); Mean Corpuscular HGB Conc 31.4 % (30-36); Mean Corpuscular Hemoglobin 25.5 PG (26-34); Mean Corpuscular Volume 81.2 fL (80-100); Platelet Count 274 X10^3/uL (150-400); Red Blood Cell Count 5.29 X10^6/uL (4.0-5.2); Red Cell Distribution Width 16.5 % (11.6-14.8); White Blood Cell Count 13.7 X10^3/uL (4.5-11.0)
[2023-06-06] MEDS: INSULIN LISPRO 100 UNIT/ML 3ML VIAL SUBCUT ×4 (08:10→20:42)
[2023-06-06] MEDS: BUSPIRONE 5 MG TABLET 7.5 MG PO ×2 (08:12→20:33)
[2023-06-06] MEDS: APIXABAN 5 MG TABLET PO ×2 (08:12→20:33)
[2023-06-06] MEDS: ASPIRIN EC 81 MG TABLET PO (08:12)
[2023-06-06] MEDS: ISOSORBIDE MONONITRATE ER 30 MG TABLET PO (08:14)
[2023-06-06] MEDS: guaiFENesin ER 600 MG TAB PO ×2 (08:14→20:33)
[2023-06-06] MEDS: LOSARTAN 25 MG TABLET PO (08:14)
[2023-06-06] MEDS: METOPROLOL IR 50 MG TABLET 100 MG PO (08:14)
[2023-06-06] MEDS: HYDROCODONE/ACET 5/325 TABLET 1 TAB PO ×2 (08:15→17:33)
[2023-06-06] MEDS: predniSONE 20 MG TABLET 40 MG PO (08:15)
[2023-06-06] MEDS: PANTOPRAZOLE DR 20 MG TABLET PO (08:15)
[2023-06-06 08:36] LABS: BUN Creatinine Ratio 43.8 (6-22); Blood Urea Nitrogen 35 mg/dL (7-17); Calcium 9.2 mg/dL (8.4-10.2); Carbon Dioxide 29 mmol/L (22-32); Chloride 101 mmol/L (98-107); Estimated Glomerular Filt Rate > 60 mL/min (>60); Glucose 147 mg/dL (80-110); HEMOLYSIS < 15 (0-50); Potassium 4.2 mmol/L (3.4-5.1); Sodium 135 mmol/L (137-145)
[2023-06-06] MEDS: SODIUM CHLORIDE 0.9% FLUSH 10 ML IV ×3 (08:36→20:34)
--- NOTE | 2023-06-06 10:23 | PM.PN.1 ---
Subjective Subjective Interval history: Feels poorly today. Her breathing is better but she generally feels very weak. She also has a headache. She does have a history of chronic intermittent headaches but denies knowing what kind of headaches these are. She is having some nausea but denies any abdominal pain. She would like some medication for her headache. Her blood pressures were high this morning but have improved after her oral medications. Exam Vital Signs (past 8 hours): - 06/06/23 02:30 06/06/23 03:00 06/06/23 03:30 Temperature Pulse Rate 75 79 89 Respiratory Rate 16 15 18 Blood Pressure Pulse Oximetry Oxygen Delivery Method Oxygen Flow Rate Fraction of Inspired Oxygen 06/06/23 04:00 06/06/23 04:30 06/06/23 05:00 Temperature Pulse Rate 80 78 82 Respiratory Rate 14 20 23 Blood Pressure Pulse Oximetry Oxygen Delivery Method Oxygen Flow Rate Fraction of Inspired Oxygen 06/06/23 05:30 06/06/23 05:40 06/06/23 05:40 Temperature Pulse Rate 88 89 Respiratory Rate 28 H 21 Blood Pressure 218/103 H Pulse Oximetry 95 Oxygen Delivery Method Oxygen Flow Rate Fraction of Inspired Oxygen 06/06/23 05:42 06/06/23 05:42 06/06/23 05:52 Temperature Pulse Rate 89 Respiratory Rate 19 Blood Pressure 206/101 H 194/95 H Pulse Oximetry 95 Oxygen Delivery Method Oxygen Flow Rate Fraction of Inspired Oxygen 06/06/23 05:52 06/06/23 05:57 06/06/23 06:00 Temperature 97.7 F Pulse Rate 79 Respiratory Rate 18 Blood Pressure 194/95 H Pulse Oximetry 95 95 Oxygen Delivery Method Nasal Cannula Oxygen Flow Rate 3 Fraction of Inspired Oxygen 06/06/23 06:36 06/06/23 06:57 06/06/23 08:00 Temperature 97.2 F L Pulse Rate 65 Respiratory Rate 19 Blood Pressure 191/91 H 191/91 H 186/83 H Pulse Oximetry 95 Oxygen Delivery Method Oxygen Flow Rate 3 Fraction of Inspired Oxygen 06/06/23 08:00 06/06/23 09:16 06/06/23 10:14 Temperature Pulse Rate 68 Respiratory Rate Blood Pressure 137/66 Pulse Oximetry 95 Oxygen Delivery Method Nasal Cannula Nasal Cannula Oxygen Flow Rate 2 Fraction of Inspired Oxygen 28 Fraction of Inspired Oxygen 28 SaO2/FiO2 Ratio 339 Oxygen Delivery Method Nasal Cannula Oxygen Flow Rate 2 Narrative Exam Narrative: NAD, flat affect, no distress. Lungs are clear with normal rate and effort. Some scattered wheezes in the right base. Heart is regular, without murmur. Abdomen is soft, flat, nontender. Extremities are free of edema. She is good pedal and radial pulses. Objective Imaging Echo: Radiologist's impression: 1) Normal left ventricular size and thickness with mildly to moderately reduced systolic function (EF 40-45%). 2) Normal right ventricular size with moderately reduced function. 3) No significant valvular abnormalities. 4) There is a small to moderate pericardial effusion noted. 5) The right ventricular systolic pressure is estimated to be at least 48 mmHg based on an estimated right atrial pressure of 8 mm Hg. 6) No prior Echo available for comparison. Labs 06/06/23 06:53 06/06/23 08:05 Labs: Laboratory Results - last 24 hr 06/06/23 06/06/23 06:53 08:05 WBC 13.7 H RBC 5.29 H Hgb 13.5 Hct 43.0 MCV 81.2 MCH 25.5 L MCHC 31.4 RDW 16.5 H Plt Count 274 Sodium 135 L Potassium 4.2 Chloride 101 Carbon Dioxide 29 BUN 35 H Creatinine 0.80 Estimated GFR > 60 BUN/Creatinine Ratio 43.8 H Glucose 147 H Calcium 9.2 PFSH Social History household members: friend(s) Smoking Status: Current every day smoker alcohol intake: never Assessment & Plan Assessment & Plan narrative: 1. Acute hypoxemia respiratory failure, present on admission and active. O2 saturation target is 89 to 90% -this is slowly improving. 2 Pneumonia, community-acquired. Present on admission and improving. Continue the IV Rocephin/oral Zithromax for now with nebulizers and oxygen supplementation. Short course. 3. COPD exacerbation, present on admission and improving. -Less wheezing. 4. Elevated troponin, demand ischemia. Present on admission and active. She has no known history of CAD. Echo from June 03 reveals EF of 40-45% with mildly reduced left and right ventricular function and no valve abnormalities. There is a small to moderate pericardial effusion. Right ventricular systolic pressure is noted to be about 48 mmHg. No prior echo. 4. Atrial fibrillation, paroxysmal, with RVR. Present on admission and improved rate control. Initially on presentation was tachycardic with a rate in the 130s but following administration of Cardizem infusion/IV metoprolol, patient has now switched to sinus. Monitoring telemetry. Resume the home Cardizem/metoprolol and Eliquis. 5. Diabetes mellitus type 2, present on admission and active. Resume the home medications and watch the blood sugar ACHS with insulin sliding scale 6. Hypertension. Present on admission and active. Resume the home Cardizem/metoprolol and watch blood pressure closely. 7. Tobacco dependence, present on admission and active. Advised to quit smoking. Initiated nicotine patch - DVT prophylaxis: on Eliquis Plan: -continue treatment of COPD with steroids for up to 5 days, bronchodilators and a short course of antibiotics for CAP. -Ativan, small doses q.8 hours as needed anxiety. -one time dose of morphine for headache. -encourage out of bed up to chair. -closely monitor blood pressure, titrate medications up as needed. Anticipate home in 1-2 days. Quality VTE Deep Vein Thrombosis/Pulmonary Embolism Present on Admission: No
--- NOTE | 2023-06-06 11:00 | CM.DPNOTE ---
DCP Note EVENT PRODUCER reviewed EMR. Per provider in morning rounds, potential dc in the next day or two. Agreeable to HH plan. Per RN, pt has a headache today, increased BP, and feels horrible. EVENT PRODUCER entered room and reintroduced self and role. Pt resting uncomfortably in bed hunched over, reported feeling miserable. EVENT PRODUCER informed her [facility] accepted her, pt appreciative. Pt reports not looking over Medicaid application yet but is grateful she has it. Reports no other CM needs at this time. Plan: home with roommates and [facility] when medically stable, roommates to transport. F2F already sent to [facility]/scanned into chart. CM team will continue to follow closely. JUAN Alcaraz
--- NOTE | 2023-06-06 11:05 | PT.IPTN ---
Current Diagnoses Pneumonia, unspecified organism (06/02/23) Physical Therapy Treatment Note M2 PT-IP Current Condition Start: 06/04/23 12:57 Freq: NEEDED Status: Active Protocol: Document 06/04/23 13:57 MB (Rec: 06/04/23 14:15 MB [id number]) Physical Therapy Current Condition Current Condition Evaluation Date 06/04/23 Treatment Diagnosis ARF, PNA M3 PT-IP Subjective Start: 06/04/23 12:57 Freq: NEEDED Status: Active Protocol: Document 06/06/23 12:54 TS (Rec: 06/06/23 13:03 TS [id number]) Subjective Physical Therapy Visit Type Type Treatment Note Visit Start Time 11:05 Visit Stop Time 11:30 Number of ORTHOPEDIC SURGEON Visits 1 Physical Therapy Visit Comments Patient Comments Pt found resting in bed on 2L of o2, Spo2 99%. Pt reports feeling very weak and tired this morning, is not feeling nauseous at this moment but has been. Pt is agreeable to PT. M4 PT-IP Mobility and Gait Start: 06/04/23 12:57 Freq: NEEDED Status: Active Protocol: Document 06/06/23 12:54 TS (Rec: 06/06/23 13:03 TS [id number]) PT-Bed Mobility Assessment Supine to Sit Supine to Sit Standby Assistance Scooting Scooting to Edge of Bed Standby Assistance PT-Transfer Assessment Sit to and From Stand Sit to and from Stand Standby Assistance,Use of Upper Extremities Equipment Transfer Assistive Device None Orthotic/Prosthetic Devices or Brace: No Comments Mobility Comments Supine to sit SBA with HOB slightly elevated and BUE support. STS from bed SBA with no AD, pt demonstrates good standing balance, reports feeling slightly dizzy/ lightheaded. Pt ambulated in room ~40' SBA with no AD and assist with managing o2 line. She sat in chair for rest break, agreed to ambulate again. She ambulated another ~ 40SBA with good balance. Pt was left in chair, RN notified . Gait Assessment Gait Gait Assistance Required: Standby Assistance Distance (Feet) 80 Able to Maintain Weight Bearing Status Yes During Gait Assistive Devices Assistive Device None Orthotic/Prosthetic Devices or Brace: No Gait Deviations General Gait Pattern Decreased Stride Length, Decreased Feet Clearance Factors Limiting Gait Function Factors Limiting Gait Function Decreased Activity Tolerance, Poor Balance Comments Gait Comments See mobility comments PT-Balance Assessment Sitting Balance and Reactions Static Sitting Balance Ability Good Dynamic Sitting Balance Ability Good Standing Balance and Reactions Static Standing Balance Ability Good Dynamic Standing Balance Ability Good M5 PT-IP Objective Assessments Start: 06/04/23 12:57 Freq: NEEDED Status: Active Protocol: Document 06/04/23 13:57 MB (Rec: 06/04/23 14:15 MB [id number]) Orientation Orientation/Cognition Level of Alertness Alert Orientation Name,Age,Birthday,Month,Year, Place,Situation Language Function Ability No Deficits Noted Safety Awareness Understands Safety Issues Memory Description No Deficits Noted Gross Range of Motion Upper Extremity ROM Assessment Within Functional Limits Lower Extremity ROM Assessment Right Impaired Impairments 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 Strength Lower Extremity Strength Assessment Right Impaired Comments Strength Comments No right toes M6 PT-IP Treatment Start: 06/04/23 12:57 Freq: NEEDED Status: Active Protocol: Document 06/06/23 12:54 TS (Rec: 06/06/23 13:03 TS [id number]) Physical Therapy Treatment Education Education Provided Safety M7 PT-IP Assessment and Plan Start: 06/04/23 12:57 Freq: NEEDED Status: Active Protocol: Document 06/06/23 12:54 TS (Rec: 06/06/23 13:03 TS [id number]) PT Summary Assessment and Plan Potential Rehabilitation Potential Fair Summary Impairments Strength,Balance,Bed Mobility, Transfers,Gait,Activity Tolerance Progress Towards Goals Slow Progress due to Medical Issues,Slow Progress due to Activity Tolerance Assessment Summary Giselle is making some progress with her mobility but remains limited by her ongoing medical issues and poor activity tolerance. She progressed her ambulation ~80'SBA in room, required rest break after ~40' due to fatigue. She is SBA for all bed mobility and for STS with no AD. PT continues to recommend home with assist and HHPT. Goals Bed Mobility Goal Independent Transfer Goal Independent Gait Goal Independent Gait Distance 100 Other Goals Pt will ascend and descend 2 steps with I. Pt does not use AD at baseline and was very I and so will set goals for no AD and use if needed. Days to Meet Goals 5 Frequency of Treatment Frequency Of Treatment Once a Day Treatment Plan Physical Therapy Treatment Plan Bed Mobility Training,Transfer Training,Gait Training, Therapeutic Exercise,Balance Retraining,Discharge Planning Weight Bearing Status Weight Bearing Status Weight Bear as Tolerated Recommendations To Nursing Amount of Assist Needed Standby Assistance Discharge Recommendations PT Discharge Recommendations Home with Assistance,Home Health Transportation Needs at Discharge Private Vehicle
[2023-06-06] MEDS: MORPHINE 2 MG/ML INJ IV ×3 (11:35→20:34)
[2023-06-06] MEDS: LORazepam 0.5 MG TABLET PO ×2 (12:18→20:33)
[2023-06-06] MEDS: ACETAMINOPHEN 325 MG TABLET 650 MG PO (14:41)
[2023-06-06] MEDS: cefTRIAXone 1,000 MG in SODIUM CHLORIDE 0.9% 100 ML 200 MG IV (18:40)
[2023-06-06] MEDS: AZITHROMYCIN 250 MG TABLET PO (20:33)
[2023-06-07] VITALS (29 sets, daily range): BP systolic 133–223; BP diastolic 66–111; PULSE 59–90; RESP 11–25; TEMP 36.2–36.6; O2SAT 93–98
[2023-06-07] MEDS: ACETAMINOPHEN 325 MG TABLET 650 MG PO ×2 (04:29→09:40)
[2023-06-07] MEDS: HYDROCODONE/ACET 5/325 TABLET 1 TAB PO ×4 (04:29→20:07)
[2023-06-07] MEDS: HYDRALAZINE 20 MG/ML VIAL 10 MG IV ×2 (04:33→23:54)
[2023-06-07 06:15] LABS: Hematocrit 37.8 % (36-46); Mean Corpuscular HGB Conc 31.7 % (30-36); Mean Corpuscular Hemoglobin 25.2 PG (26-34); Mean Corpuscular Volume 79.5 fL (80-100); Platelet Count 290 X10^3/uL (150-400); Red Blood Cell Count 4.76 X10^6/uL (4.0-5.2); Red Cell Distribution Width 16.5 % (11.6-14.8); White Blood Cell Count 11.1 X10^3/uL (4.5-11.0)
[2023-06-07 06:27] LABS: BUN Creatinine Ratio 57.9 (6-22); Blood Urea Nitrogen 44 mg/dL (7-17); Calcium 8.8 mg/dL (8.4-10.2); Carbon Dioxide 27 mmol/L (22-32); Chloride 100 mmol/L (98-107); Estimated Glomerular Filt Rate > 60 mL/min (>60); Glucose 136 mg/dL (80-110); HEMOLYSIS 32 (0-50); Potassium 4.5 mmol/L (3.4-5.1); Sodium 132 mmol/L (137-145)
[2023-06-07] MEDS: LOSARTAN 25 MG TABLET PO (08:30)
[2023-06-07] MEDS: ISOSORBIDE MONONITRATE ER 30 MG TABLET PO (08:30)
[2023-06-07] MEDS: METOPROLOL IR 50 MG TABLET 100 MG PO (08:30)
[2023-06-07] MEDS: ASPIRIN EC 81 MG TABLET PO (08:32)
[2023-06-07] MEDS: BUSPIRONE 5 MG TABLET 7.5 MG PO ×2 (08:32→20:04)
[2023-06-07] MEDS: APIXABAN 5 MG TABLET PO ×2 (08:32→20:05)
[2023-06-07] MEDS: guaiFENesin ER 600 MG TAB PO ×2 (08:34→20:05)
[2023-06-07] MEDS: predniSONE 20 MG TABLET 40 MG PO (08:34)
[2023-06-07] MEDS: PANTOPRAZOLE DR 20 MG TABLET PO (08:34)
[2023-06-07] MEDS: MORPHINE 2 MG/ML INJ IV ×2 (09:04→22:19)
[2023-06-07] MEDS: SODIUM CHLORIDE 0.9% FLUSH 10 ML IV ×2 (09:04→20:07)
--- NOTE | 2023-06-07 09:12 | PM.PN.1 ---
Subjective Subjective Interval history: She has a headache. Her breathing is slightly better. She still is somewhat anxious. She feels weak. Exam Vital Signs (past 8 hours): - 06/07/23 01:30 06/07/23 02:00 06/07/23 02:30 Temperature Pulse Rate 75 76 80 Respiratory Rate 22 15 11 L Blood Pressure Pulse Oximetry Oxygen Delivery Method Oxygen Flow Rate 06/07/23 03:00 06/07/23 03:30 06/07/23 04:00 Temperature Pulse Rate 74 69 68 Respiratory Rate 12 12 15 Blood Pressure Pulse Oximetry Oxygen Delivery Method Oxygen Flow Rate 06/07/23 04:18 06/07/23 04:18 06/07/23 04:19 Temperature Pulse Rate 79 79 Respiratory Rate 16 13 Blood Pressure 223/98 H Pulse Oximetry 96 96 Oxygen Delivery Method Oxygen Flow Rate 06/07/23 04:20 06/07/23 04:33 06/07/23 05:00 Temperature 97.2 F L Pulse Rate 67 Respiratory Rate Blood Pressure 202/92 H 202/92 H Pulse Oximetry 96 Oxygen Delivery Method Nasal Cannula Oxygen Flow Rate 1 1 06/07/23 06:36 06/07/23 08:00 Temperature 97.6 F Pulse Rate 74 83 Respiratory Rate 21 Blood Pressure 164/75 H 190/98 H Pulse Oximetry 97 Oxygen Delivery Method Oxygen Flow Rate 1 Fraction of Inspired Oxygen 24 SaO2/FiO2 Ratio 404 Oxygen Delivery Method Nasal Cannula Oxygen Flow Rate 1 Narrative Exam Narrative: Flat affect, no distress. Fluent speech. Lungs are clear, less wheezing. Better air movement. Heart is regular, no murmur. Her abdomen is soft, non-tender. Her legs are free of edema. Objective Labs 06/07/23 06:08 06/07/23 06:08 Labs: Laboratory Results - last 24 hr 06/07/23 06:08 WBC 11.1 H RBC 4.76 Hgb 12.0 Hct 37.8 MCV 79.5 L MCH 25.2 L MCHC 31.7 RDW 16.5 H Plt Count 290 Sodium 132 L Potassium 4.5 Chloride 100 Carbon Dioxide 27 BUN 44 H Creatinine 0.76 Estimated GFR > 60 BUN/Creatinine Ratio 57.9 H Glucose 136 H Calcium 8.8 PFSH Social History household members: friend(s) Smoking Status: Current every day smoker alcohol intake: never Assessment & Plan Assessment & Plan narrative: 1. Acute hypoxemia respiratory failure, present on admission and active. O2 saturation target is 89 to 90% -this is slowly improving. 2 Pneumonia, community-acquired. Present on admission and improving. Day 5 og antibiotics. 3. COPD exacerbation, present on admission and improving. Day 5 of steroids. -Less wheezing. 4. Elevated troponin, demand ischemia. Present on admission and active. She has no known history of CAD. Echo from June 03 reveals EF of 40-45% with mildly reduced left and right ventricular function and no valve abnormalities. There is a small to moderate pericardial effusion. Right ventricular systolic pressure is noted to be about 48 mmHg. 4. Atrial fibrillation, paroxysmal, with RVR. Present on admission and improved rate control. Initially on presentation was tachycardic with a rate in the 130s but following administration of Cardizem infusion/IV metoprolol, patient has now switched to sinus. Monitoring telemetry. Resume the home Cardizem/metoprolol and Eliquis. 5. Diabetes mellitus type 2, present on admission and active. Resume the home medications and watch the blood sugar ACHS with insulin sliding scale 6. Hypertension with poor control over the last 2 days. Present on admission and active. Resume the home Cardizem/metoprolol and watch blood pressure closely. 7. Tobacco dependence, present on admission and active. Advised to quit smoking. Initiated nicotine patch - DVT prophylaxis: on Eliquis Plan: -continue treatment of COPD with steroids for up to 5 days, bronchodilators and a short course of antibiotics for CAP. Will stop Abx and steroids after today. -Ativan, small doses q.8 hours as needed anxiety. -encourage out of bed up to chair. -closely monitor blood pressure, titrate medications up as needed. -will add amlodipine 5 daily today. Probable discharge home 06/08. Will need outpatient stress test after recovered from acute illness. Quality VTE Deep Vein Thrombosis/Pulmonary Embolism Present on Admission: No
[2023-06-07] MEDS: AMLODIPINE 5 MG TABLET PO (09:41)
[2023-06-07] MEDS: LOSARTAN 25 MG TABLET 50 MG PO (09:42)
--- NOTE | 2023-06-07 10:44 | CM.DPNOTE ---
DCP Note [employer] reviewed EMR. Per PT, continue to rec HH at dc. Per provider in morning rounds, pt has a headache and continues to feel weak. Per provider in morning rounds, anticipate dc home tomorrow. [facility] will follow for RN/[place]. F2f already in chart. CM team will notify [facility] [place]. Plan: home with roommates and [facility] when medically stable, roommates to transport. Anticipate tomorrow. CM team will continue to follow closely. JUAN Alcaraz
--- NOTE | 2023-06-07 11:03 | PC.NURSE ---
Received new orders for losartan prescription after morning meds were given. New Rx is for 50 mg of Losartan, administered an additional 25mg to meet new prescription at 9:42am Reassessed pt's BP at 10:25am: 175/79 and again at 11:00am: 138/68. Will continue to monitor.
[2023-06-07] MEDS: INSULIN LISPRO 100 UNIT/ML 3ML VIAL SUBCUT ×3 (11:49→20:12)
[2023-06-07] MEDS: LORazepam 0.5 MG TABLET PO ×2 (12:48→23:53)
--- NOTE | 2023-06-07 13:13 | PT-IP ANOTE ---
Pt declines therapy in AM stating that she doesn't feel well, and her head hurts. Pt's eyes remain closed during interaction.
--- NOTE | 2023-06-07 13:37 | PT-IP ANOTE ---
Attempted to see pt in PM. Per nursing pt not feeling well, was just given ativan and is sleeping, recommends holding therapy today.
--- NOTE | 2023-06-07 17:11 | PC.NURSE ---
Pt stated that she was feeling very weak. Recommended that pt get up and ambulate/transfer to chair. Pt accepted. SCDs removed for patient preference/safety. Will reapply after meal.
[2023-06-07] MEDS: cefTRIAXone 1,000 MG in SODIUM CHLORIDE 0.9% 100 ML 200 MG IV (19:45)
[2023-06-07] MEDS: AZITHROMYCIN 250 MG TABLET PO (19:52)
[2023-06-08] VITALS (10 sets, daily range): BP systolic 150–196; BP diastolic 73–93; PULSE 86–120; RESP 13–23; TEMP 36–36.6; O2SAT 90–98
[2023-06-08] MEDS: HYDRALAZINE 20 MG/ML VIAL 10 MG IV (07:48)
[2023-06-08] MEDS: BUSPIRONE 5 MG TABLET 7.5 MG PO (08:28)
[2023-06-08] MEDS: METOPROLOL IR 50 MG TABLET 100 MG PO (08:28)
[2023-06-08] MEDS: AMLODIPINE 5 MG TABLET PO (08:28)
[2023-06-08] MEDS: ASPIRIN EC 81 MG TABLET PO (08:28)
[2023-06-08] MEDS: guaiFENesin ER 600 MG TAB PO (08:28)
[2023-06-08] MEDS: LOSARTAN 25 MG TABLET 50 MG PO (08:29)
[2023-06-08] MEDS: PANTOPRAZOLE DR 20 MG TABLET PO (08:29)
[2023-06-08] MEDS: APIXABAN 5 MG TABLET PO (08:30)
[2023-06-08] MEDS: ISOSORBIDE MONONITRATE ER 30 MG TABLET PO (08:30)
[2023-06-08] MEDS: INSULIN LISPRO 100 UNIT/ML 3ML VIAL SUBCUT (08:31)
[2023-06-08] MEDS: SODIUM CHLORIDE 0.9% FLUSH 10 ML IV (08:43)
[2023-06-08] MEDS: HYDROCODONE/ACET 5/325 TABLET 1 TAB PO (10:01)
--- NOTE | 2023-06-08 10:22 | RT ---
PT HAS BEEN USING 2 LPM N/C W/ SLEEP AT [facility] WHILE ADMITTED.
--- NOTE | 2023-06-08 12:07 | PT.IPTN ---
Current Diagnoses Pneumonia, unspecified organism (06/02/23) Physical Therapy Treatment Note M2 PT-IP Current Condition Start: 06/04/23 12:57 Freq: NEEDED Status: Active Protocol: Document 06/04/23 13:57 MB (Rec: 06/04/23 14:15 MB [id number]) Physical Therapy Current Condition Current Condition Evaluation Date 06/04/23 Treatment Diagnosis ARF, PNA M3 PT-IP Subjective Start: 06/04/23 12:57 Freq: NEEDED Status: Active Protocol: Document 06/08/23 11:45 MB (Rec: 06/08/23 12:06 MB [id number]) Subjective Physical Therapy Visit Type Type Treatment Note Visit Start Time 11:45 Visit Stop Time 12:00 Number of SAW EDGE FUSER CIRCULAR Visits 0 Physical Therapy Visit Comments Patient Comments Pt is agreeable to PT to try stair training. Therapy Pain Assessment Pain When Pain Assessed At Rest Pain Present Pain Present Denied Pain M4 PT-IP Mobility and Gait Start: 06/04/23 12:57 Freq: NEEDED Status: Active Protocol: Document 06/08/23 11:45 MB (Rec: 06/08/23 12:06 MB [id number]) PT-Bed Mobility Assessment Supine to Sit Supine to Sit Independent,Head of Bed Elevated,Bedrails Scooting Scooting to Edge of Bed Independent PT-Transfer Assessment Sit to and From Stand Sit to and from Stand Standby Assistance,1 Person Assistance,Use of Upper Extremities Equipment Transfer Assistive Device Gait Belt Orthotic/Prosthetic Devices or Brace: No Transfer Ability Level of Assist Standby Assistance Gait Assessment Gait Gait Assistance Required: Standby Assistance,1 Person Assist Distance (Feet) 90 Able to Maintain Weight Bearing Status Yes During Gait Assistive Devices Assistive Device Gait Belt Orthotic/Prosthetic Devices or Brace: No Gait Deviations General Gait Pattern Decreased Stride Length Factors Limiting Gait Function Factors Limiting Gait Function Poor Safety Awareness Comments Gait Comments Gait training today with pt on 1L O2. O2 sats on 1L are 94- 95% at rest and pt does not report JOVEL. She has some light -headedness after 90 ft gait and pt sits in w/c (w/c pull behind for gait to steps today ). Pt's BP in RUE is 157/78 before mobility. She has poor safety awareness and walks close to objects in hallway to the right with gait. Stair Climbing Assessment Evaluation Level of Assist On Stairs Standby Assistance,1 Person Assistance Devices Stair Climbing Assistive Devices None Technique/Endurance Stair Climbing Direction Ascend and Descend Stair Climbing Technique Step Over Step Number of Steps Climbed 3 Stair Climbing Set # Repetitions (reps) 1 PT-Balance Assessment Sitting Balance and Reactions Static Sitting Balance Ability Good Dynamic Sitting Balance Ability Good Standing Balance and Reactions Static Standing Balance Ability Good Dynamic Standing Balance Ability Good M5 PT-IP Objective Assessments Start: 06/04/23 12:57 Freq: NEEDED Status: Active Protocol: Document 06/04/23 13:57 MB (Rec: 06/04/23 14:15 MB [id number]) Orientation Orientation/Cognition Level of Alertness Alert Orientation Name,Age,Birthday,Month,Year, Place,Situation Language Function Ability No Deficits Noted Safety Awareness Understands Safety Issues Memory Description No Deficits Noted Gross Range of Motion Upper Extremity ROM Assessment Within Functional Limits Lower Extremity ROM Assessment Right Impaired Impairments 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 Strength Lower Extremity Strength Assessment Right Impaired Comments Strength Comments No right toes M6 PT-IP Treatment Start: 06/04/23 12:57 Freq: NEEDED Status: Active Protocol: Document 06/08/23 11:45 MB (Rec: 06/08/23 12:06 MB [id number]) Physical Therapy Treatment Education Education Provided Safety M7 PT-IP Assessment and Plan Start: 06/04/23 12:57 Freq: NEEDED Status: Active Protocol: Document 06/08/23 11:45 MB (Rec: 06/08/23 12:06 MB [id number]) PT Summary Assessment and Plan Potential Rehabilitation Potential Fair Summary Impairments Strength,Balance,Bed Mobility, Transfers,Gait,Activity Tolerance Progress Towards Goals Progressing Toward Goals Assessment Summary Pt is progressing towards goals. She con't to look poorly. Her BP is mildly elevated today and gait training using 1L O2, which she will d/c home with. She is supposed to d/c home today with friends and she will benefit from close to 24 hour superv to check in on her at d /c with SBA for mobility. Goals Bed Mobility Goal Independent Transfer Goal Independent Gait Goal Independent Gait Distance 100 Other Goals Pt will ascend and descend 2 steps with I. Pt does not use AD at baseline and was very I and so will set goals for no AD and use if needed. Days to Meet Goals 5 Frequency of Treatment Frequency Of Treatment Once a Day Treatment Plan Physical Therapy Treatment Plan Bed Mobility Training,Transfer Training,Gait Training, Therapeutic Exercise,Balance Retraining,Discharge Planning Weight Bearing Status Weight Bearing Status Weight Bear as Tolerated Recommendations To Nursing Amount of Assist Needed Standby Assistance Discharge Recommendations PT Discharge Recommendations Home with Assistance,Home Health Transportation Needs at Discharge Private Vehicle
--- NOTE | 2023-06-08 12:09 | PM.DS.1 ---
History of Present Illness History of Present Illness Date Patient Seen: 06/02/23 Time Patient Seen: 22:30 Chief complaint: coughing, sob Narrative: 63 years old female with a past medical history of hypertension, diabetes, chronic smoker, previous hospitalization for pyelonephritis/hematuria, atrial fibrillation, nocturnal hypoxia and multiple other medical issues presented to the emergency room with worsening shortness of breath with cough that is productive with whitish mucoid and yellow sputum intermittently and palpitations. Denies any chest pain dizziness or loss of consciousness. Denies any fever episodes. Does have shortness of breath worse with exertion. Denies any orthopnea or symptoms suggestive of PND. On arrival patient was noted to be in A-fib with rapid ventricular rate and hypoxic. Pulse was in the 130s. Further labs showed leukocytosis with a white count of 11,300, hemoglobin of 15.0. COVID and influenza screen/RSV was negative., chest x-ray shows retrocardiac opacity in the left costophrenic angle. CT chest was negative for pulm embolism but positive for left-sided infiltrate. Patient was given IV Rocephin/Zithromax and started on Cardizem drip and due to persistent tachycardia, given a single dose of IV metoprolol 5 mg. Patient was admitted for further evaluation Discharge Providers Provider Date of admission: 06/02/23 19:57 Discharge Date: 06/08/23 Primary care physician: Doctor Nabil MD Consults: 06/04/23 10:04 Consult to Physical Therapy Evaluate & Treat Comment: Physician Instructions: Evaluate and Treat 06/05/23 12:27 Consult to Home Health Routine Comment: Reason For Exam: RN/PT/OT 06/08/23 11:13 Consult to Home Health Routine Comment: Reason For Exam: Home health services upon discharge Discharge provider: Frandy Guzman DO Summary Hospital Course Discharge Diagnosis: 1. Acute hypoxemia respiratory failure, present on admission and active. O2 saturation target is 89 to 90% -this is slowly improving. -home O2 eval showed needing 1L at rest and 2L with exertion. RT setup for home O2. 2. Pneumonia, community-acquired. Present on admission and improving. -completed 5 days of abx 3. COPD exacerbation, present on admission and improving. -completed 5 of steroids. -Less wheezing. 4. Elevated troponin, demand ischemia. Present on admission and active. She has no known history of CAD. Echo from June 03 reveals EF of 40-45% with mildly reduced left and right ventricular function and no valve abnormalities. There is a small to moderate pericardial effusion. Right ventricular systolic pressure is noted to be about 48 mmHg. 4. Atrial fibrillation, paroxysmal, with RVR. Present on admission and improved rate control. Initially on presentation was tachycardic with a rate in the 130s but following administration of Cardizem infusion/IV metoprolol, patient has now switched to sinus. Monitoring telemetry. Resumed the home Cardizem/metoprolol and Eliquis. 5. Diabetes mellitus type 2, present on admission and active. Resume the home medications and watch the blood sugar ACHS with insulin sliding scale 6. Hypertension with poor control over the last 2 days. Present on admission and active. Resume the home Cardizem/metoprolol and watch blood pressure closely. 7. Tobacco dependence, present on admission and active. Advised to quit smoking. Initiated nicotine patch Hospital Course: Admitted for COPD exacerbation and PNA. Completed 5 days of steroids and abx. Weaned to 1L NC at rest and 2L with exertion. RT arranged home oxygen. Also was in Afib RVR which improved with dilt drip and put back on home metop and dilt po. Discharged with albuterol inhaler. Exam Vital Signs (past 8 hours): - 06/08/23 05:00 06/08/23 07:00 06/08/23 07:48 Temperature Pulse Rate 87 Respiratory Rate Blood Pressure 196/93 H Pulse Oximetry 97 Oxygen Delivery Method Nasal Cannula Nasal Cannula Oxygen Flow Rate 1 06/08/23 08:00 06/08/23 08:18 06/08/23 08:29 Temperature 96.8 F L Pulse Rate 106 H 120 H 118 H Respiratory Rate 23 Blood Pressure 196/93 H 150/80 H 150/80 H Pulse Oximetry 98 Oxygen Delivery Method Oxygen Flow Rate 2 06/08/23 08:32 06/08/23 09:00 Temperature Pulse Rate Respiratory Rate Blood Pressure Pulse Oximetry 97 90 L Oxygen Delivery Method Nasal Cannula Room Air Oxygen Flow Rate 1 Fraction of Inspired Oxygen 24 SaO2/FiO2 Ratio 391 Oxygen Delivery Method Room Air Oxygen Flow Rate 1 Narrative Exam Narrative: Flat affect, no distress. Fluent speech. Lungs are clear, less wheezing. Better air movement. Heart is regular, no murmur. Her abdomen is soft, non-tender. Her legs are free of edema. Objective Labs 06/07/23 06:08 06/07/23 06:08 [facility] Social History household members: friend(s) Smoking Status: Current every day smoker alcohol intake: never Discharge Plan Discharge Plan Patient Disposition: Home Provider Discharge Comment: You were admitted for a COPD exacerbation and pneumonia. Please quit smoking. You will need home oxygen with 1L at rest and 2L at night. I've sent an albuterol inhaler for you to use at home if you get short of breath. Discharge orders & Medications Prescriptions: New albuterol sulfate 90 mcg/actuation HFA aerosol inhaler 1 inh inhalation QID PRN (Reason: shortness of breath or wheezing) Qty: 8.5 0RF Continued metoprolol tartrate 100 mg tablet 100 mg PO DAILY Rx Instructions: pt got a dose in er ivp nitrofurantoin macrocrystal 100 mg capsule 100 mg PO BID losartan 25 mg tablet 25 mg PO DAILY buspirone 7.5 mg tablet 7.5 mg PO BID epinephrine 0.3 mg/0.3 mL auto-injector 0.3 ml IM PRN PRN (Reason: Allergic Reaction) Rx Instructions: for bee sting allergic diltiazem HCl 30 mg tablet 30 mg PO BID insulin glargine 100 unit/mL (3 mL) insulin pen 20 unit SUBCUT ONCE PM Eliquis 5 mg tablet 5 mg PO BID isosorbide mononitrate 30 mg Tablet Extended Release 24 Hr 30 mg PO DAILY pantoprazole 20 mg Tablet,Delayed Release (Dr/Ec) 20 mg PO DAILY aspirin 81 mg Tablet 81 mg PO 1XD Follow up/Referrals: Nabil,DoctorMD [Primary Care Provider] - Diet/Activity/Treatments Diet: Carb-consistent/Diabetic Visit Report/Discharge Packet Stand Alone Forms: Patient Portal/API, Stroke Signs & Symptoms Discharge Data Primary Care Provider: Doctor Nabil Quality VTE Deep Vein Thrombosis/Pulmonary Embolism Present on Admission: No
--- NOTE | 2023-06-08 12:32 | PC.NURSE ---
pt for discharge, awaiting ride; home 02 eval done and pt will be discharged on home 02; pt ambulated and did steps with PT; IV discontinued and pharmacy spoke w/ pt regarding home meds and new inhaler prescription
--- NOTE | 2023-06-08 14:11 | CM.DPNOTE ---
Addendum entered by JUAN Smith 06/08/23 14:17: ADD: Pharmacist, Blanca, asking if HH RN can assist with setting patient's diabetic monitor? Giulia at [facility] [place] a nurse cannot actually manipulate the settings but can support and verbally instruct the patient to do this for herself. ELVIA Original Note: DC Note Discharge home today w/son to assist and [facility] to follow for HH services. [facility] made aware of patient's discharge. ELVIA
== END 2023-06-08 12:39 | disposition home health service (06) | DRG 193 ==
LOC: ED 19:50 → AC 19:57 → ICU 21:16
PROVIDERS: Hospitalist; Admitting Provider Internal Medicine; Emergency Provider Emergency Medicine; Referring Provider Emergency Medicine; Visit Provider Internal Medicine
DX: J18.9 Pneumonia, unspecified organism (principal); J96.01 Acute respiratory failure with hypoxia; J44.1 Chronic obstructive pulmonary disease with (acute) exacerbation; I24.89 Other forms of acute ischemic heart disease; R00.2 Palpitations; I48.0 Paroxysmal atrial fibrillation; E11.9 Type 2 diabetes mellitus without complications; I10 Essential (primary) hypertension; F17.210 Nicotine dependence, cigarettes, uncomplicated; Z79.4 Long term (current) use of insulin; Z79.01 Long term (current) use of anticoagulants
CPT/HCPCS: 0241U; 36415; 71045; 71275; 80048; 80053; 82550; 82962; 83690; 83735; 83880; 84100; 84484; 85025; 85027; 85610; 85730; 93005; 93306; 94618; 94640; 94760; 94762; 96365; 96366; 96368; 96375; 97116; 97161; 97530; 99285; 99291; J0360; J0696; J1815; J2270; Q9967